=== PATIENT | male | born 1990 | race African-American/Black ===

== ENCOUNTER 2019-03-20 19:49 | Inpatient (IN) | payer BC, SELFPAY ==
[~2019-03-20 19:49] MED LIST: ISOVUE-370 76%-LOCM 1 ML ONE
[2019-03-20 21:02] LABS: ALT (SGPT) 3244 U/L (8-55); Alkaline Phosphatase 125 U/L (40-150); Anion Gap 13 mmol/L (10-20); BUN (Urea Nitrogen) 40 mg/dL (8.9-20.6); Bilirubin, Total 5.9 mg/dL (0.2-1.2); Calc. Creatinine Clearance 0 mL/min (70-130); Calcium 8.2 mg/dL (7.8-10.44); Carbon Dioxide 25 mmol/L (22-29); Chloride 91 mmol/L (98-107); Estimated GFR-MDRD 37; Globulin 2.7 g/dL (2.4-3.5); Glucose 77 mg/dL (70-105); Lipase 104 U/L (8-78); Potassium 5.1 mmol/L (3.5-5.1); Protein, Total 5.7 g/dL (6.0-8.3); Sodium 124 mmol/L (136-145)
[2019-03-20 21:14] LABS: Hemoglobin 14.6 g/dL (14.0-18.0); Mean Corpuscular HGB CONC 31.3 g/dL (32.0-36.0); Mean Corpuscular Hemoglobin 28.4 pg (27.0-31.0); Mean Corpuscular Volume 90.8 fL (78.0-98.0); Platelet Count 193 thou/uL (130-400); RBC Distribution Width 13.7 % (11.5-14.5); Red Blood Cell (RBC) Count 5.15 mill/uL (4.70-6.10); White Blood Cell (WBC) Count 20.1 thou/uL (4.8-10.8)
[2019-03-20 21:21] LABS: AST (SGOT) Greater than 3500 U/L (5-34)
[2019-03-20 21:24] LABS: Band 7 % (5-11); Lymphocytes 6 % (21-51); MDiff Complete? YES; Monocytes 2 % (0-10); Neutrophil 85 % (42-75); Platelet Morphology Comment Appears Adequate
[2019-03-20 21:25] LABS: CKMB 5.3 ng/mL (0-6.6)
[2019-03-20 21:33] LABS: Acetaminophen Less than 6.0 mcg/mL (10.0-30.0); Alcohol Less than 10 mg/dL (Less than 10); Salicylate Less than 8.0 mg/dL (15.0-30.0)
--- NOTE | 2019-03-20 22:08 | CT ---
CONTRAST ENHANCED CT IMAGES ABDOMEN AND PELVIS: 03/20/19 HISTORY: Generalized weakness. Abdominal pain, edema. Contrast enhanced CT images of the abdomen and pelvis is performed after administration of IV contra st. Bibasilar areas of lung pneumonia seen. The liver and spleen are unremarkable. There is diffuse edema in the subcutaneous fat and intraperit justice fat. The kidneys demonstrate normal enhancement. Abdominal aorta and inferior vena cava are unremarkable. No evidence of ascites seen. No evidence of bowel obstruction seen. IMPRESSION: 1. Diffuse edema throughout the subcutaneous and intraperitoneal fat. 2. Air space opacities compatible with multilobar lung pneumonia. POS: [facility]
--- NOTE | 2019-03-20 22:11 | CT ---
CTA CHEST 03/20/19 HISTORY: Weakness. Hemoptysis. Contrast enhanced CTA chest performed. 2D and 3D reconstructed images performed on an independent 3D workstation. Areas of air space opacities seen in the right middle lobe as well as the right and left lung bases a nd small area in the posterior aspect of the right upper lobe. A small right sided pleural effusion i s seen. There are bilateral areas of upper lobe filling defects seen in the upper lobe pulmonary arteries. Th jyothi may represent small areas of pulmonary emboli. Small filling defect also seen in the left lower l obe pulmonary arteries. Cardiomegaly is noted. IMPRESSION: 1. Multilobar areas of air space opacities compatible with pneumonia. 2. Multiple small areas of filling defects seen in the pulmonary arteries compatible with pulmon benji emboli. POS: [facility]
[2019-03-20] MEDS ORDERED: Piperacillin/Tazobactam 3.375 GM VIAL ONE (22:21)
[2019-03-20 22:25] LABS: PTT 37.2 SEC (22.9-36.1); Prothrombin Time 41.1 SEC (12.0-14.7)
--- NOTE | 2019-03-20 22:25 | PDOC.FPRHP ---
- History of Present Illness Chief Complaint: found down History of Present Illness: 29yo previously healthy male presents from EMS after being found in his truck by his mother. Pt was unable to provide hx of how he got there or how long. He did report 2 week hx of worsening LE swelling, intermittent vomiting, and cough. He also complains of pain all over his body and fevers/chills. Mother reports the last time she saw him was 4 days ago. Pt denies IV drug use, denies sick contacts, reports 5 sexual partners over the last year and uses condoms consistently. Reports he has no clue what could be causing his symptoms. ED Course: vanc, zosyn, levaquin - Allergies/Adverse Reactions Allergies Allergy/AdvReac Type Severity Reaction Status Date / Time No Known Drug Allergies Allergy Verified 11/18/13 05:43 - Home Medications Medication Instructions Recorded Confirmed Type No Known 11/18/13 03/20/19 History - History PMHx: none PSHx: right Rotator cuff surgery FHx: Mom- HTN, DM Dad- HTN Social: no smoking, hx of alcohol abuse (up to 30 beers a day or 7 drinks a day for at least 2 years- quit 2 years ago), pain pill abuse of norco, no IV drug use or recreational drug use. 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 Lives with his mom "when it is convenient" about 2-3 days a week and otherwise stays with other various friends throughout the week. - Review of Systems General: reports: fever/chills, fatigue Eyes: denies: eye pain, vision changes ENT: denies: nasal congestion Respiratory: denies: congestion, shortness of breath Cardiovascular: reports: chest pain. denies: palpitation Gastrointestinal: reports: nausea, vomiting, abdominal pain Genitourinary: denies: incontinence, dysuria Skin: denies: rashes, lesions Musculoskeletal: reports: pain. denies: tenderness Neurological: reports: syncope. denies: numbness, seizure Psychological: denies: anxiety, depression - Vital signs BP: 118/72, Pulse: 122, Temp: 99.3 (Oral), O2 sat: 97 on Room Air, Time: 2018 19:54. weight: 90kg - Physical Exam Constitutional: awake, alert and oriented, well developed HEENT: EOMI, grossly normal vision, grossly normal hearing, other (jaundiced sclera) Neck: supple, trachea midline Chest: no-tender to palpation, no lesions Heart: normal S1/S2, other (tachycardic) Lungs: CTAB, no respiratory distress Abdomen: soft, other (moderate+ ttp in all four quadrants) Musculoskeletal: normal structure, normal tone Neurological: no focal deficit, normal sensation Skin: no rash/lesions, good turgor Heme/Lymphatic: no unusual bruising or bleeding, no purpura Psychiatric: other (poor memory, alert, oriented to person and place) FMR H&P: Results - Labs Result Diagrams: 03/21/19 03:30 03/21/19 03:30 Lab results: WBC 20.1 thou/uL (4.8-10.8) H 03/20/19 20:39 Hgb 14.6 g/dL (14.0-18.0) 03/20/19 20:39 Hct 46.7 % (42.0-52.0) 03/20/19 20:39 MCV 90.8 fL (78.0-98.0) 03/20/19 20:39 Plt Count 193 thou/uL (130-400) 03/20/19 20:39 Band Neuts % (Manual) 7 % (5-11) 03/20/19 20:39 Sodium 124 mmol/L (136-145) L 03/20/19 20:39 Potassium 5.1 mmol/L (3.5-5.1) 03/20/19 20:39 Chloride 91 mmol/L (98-107) L 03/20/19 20:39 Carbon Dioxide 25 mmol/L (22-29) 03/20/19 20:39 BUN 40 mg/dL (8.9-20.6) H 03/20/19 20:39 Creatinine 2.52 mg/dL (0.7-1.3) H 03/20/19 20:39 Glucose 77 mg/dL (70-105) 03/20/19 20:39 Calcium 8.2 mg/dL (7.8-10.44) 03/20/19 20:39 Total Bilirubin 5.9 mg/dL (0.2-1.2) H 03/20/19 20:39 AST Greater than 3500 U/L (5-34) H 03/20/19 20:39 ALT 3244 U/L (8-55) H 03/20/19 20:39 Alkaline Phosphatase 125 U/L (40-150) 03/20/19 20:39 Creatine Kinase 581 U/L (30-200) H 03/20/19 20:39 CK-MB (CK-2) 5.3 ng/mL (0-6.6) 03/20/19 20:37 B-Natriuretic Peptide 4060.8 pg/mL (0-100) H 03/20/19 20:37 Serum Total Protein 5.7 g/dL (6.0-8.3) L 03/20/19 20:39 Albumin 3.0 g/dL (3.5-5.0) L 03/20/19 20:39 Lipase 104 U/L (8-78) H 03/20/19 20:39 FMR H&P: A/P - Problem List (1) Sepsis Current Visit: Yes Status: Acute Code(s): A41.9 - SEPSIS, UNSPECIFIED ORGANISM (2) Pneumonia Current Visit: Yes Status: Acute Code(s): J18.9 - PNEUMONIA, UNSPECIFIED ORGANISM (3) DIC (disseminated intravascular coagulation) Current Visit: Yes Status: Acute Code(s): D65 - DISSEMINATED INTRAVASCULAR COAGULATION (4) Acute renal injury Current Visit: Yes Status: Acute Code(s): N17.9 - ACUTE KIDNEY FAILURE, UNSPECIFIED (5) Acute liver failure Current Visit: Yes Status: Acute - Plan Sepsis 2/2 CAP A- CT chest shows evidence of pneumonia and pt meeting sirs criteria, pt was maintaining adequate BP in ED before fluids. s/p vanc zosyn and levaquin P- continue vanc and zosyn -LR bolus 500ml, then maintenance -repeat LA -BCx, UCx possible DIC A- possibly 2/2 sepsis, labwork so far seems to indicate DIC with elevated Pt and PTT with decreased fibrinogen and increased degredation products. P- will repeat coag panel at 0600 Bilateral PE A- shown on chest CT, possibly 2/2 DIC, pt is stable with good sats on room air though he is tachypneic and tachycardic. INR is currently 4.3 P- anticoagulation contraindicated considering INR Elevated BNP A- likely CHF in exacerbation vs. 2/2 PE P- will need to treat sepsis first with fluid rescuscitation -will monitor fluid status Acute Liver failure likely 2/2 ischemic hepatitis A- likely 2/2 poor perfusion from cardiogenic causes P- consult GI -hepatitis studies Acute kidney injury A- likely also 2/2 poor perfusion P- treat sepsis and fluid resuscitation. FULL CODE FMR H&P: Upper Level - Pertinent history 29 yr old male with no PMH presents for generalized weakness, SOB, and abdominal pain. Patient reports progressively worsening SOB, cough, and BLE swelling over the last 2-3 weeks that acutely worsened in the last week. He has been basically immobile for the last 4 days due to being so weak. His phone has been off the last 4 days and therefore his mom went searching for him today and apparently found him in his truck today. Right side of his body is in a lot of pain, mostly in his chest. Feels so short of breath it hurts to talk. Fevers, chills, coughing. +nausea and vomiting. Vomits up water when he drinks it. Threw up blood a couple days ago. Passed out within the past couple days- hit his head, does not think he lost consciousness. Sexually active- probably 5 female partners in last year. No recent travel. Unsure when the last time he urinated. - Pertinent findings Gen: lying in bed, can only talk in 4-5 word sentences Eyes: scleral icterus, 3 mm pupils-minimally reactive Heart: reg rhythm, tachycardia Lungs: CTAB, no wheezes, rhales, rhonchi Abd: exquisitely tender diffusely however worse in RUQ Ext: 1-2 + pitting edema from feet to knees - Plan Date/Time: 03/20/192211 I, [Carolyn Campo], have evaluated this patient and agree with findings/plan as outlined by customer experience intern resident. Pertinent changes/additions are listed here. Acute liver failure most likely 2/2 ischemic hepatitis -perhaps 2/2 severe sepsis vs cardiogenic shock? -stat abdominal US including doppler of hepatic/portal vein -check LDH, direct bili -possible DIC 2/2 sepsis?, will trend DIC panel q 6 hours Acute kidney failure -urine sodium/creatinine -UA with culture -urine strep pneumo and legionella -bladder scan -give 500 ml bolus since he is oliguric currently -consult nephrology in AM Hypotonic hypervolemic Hyponatremia -likely 2/2 liver failure vs heart failure vs kidney failure or culmination of all -monitor CMP daily sepsis 2/2 Community aquired PNA -tachycardia, elevated WBC -cont on vanc and zosyn and s/p levaquin x 1 in ER -500 ml bolus given and will cont IV fluids bilateral small PE's -INR currently > 4 -anticoagulation contraindicated -check BLE venous dopplers -? DIC elevated BNP -likely CHF in exacerbation - urgent ECHO Overall this is a very complicated picture at the moment. Multiple studies pending and other than sepsis, no clear etiology Dispo: likely 5-7 midnights Code: Full Code status: Full
[2019-03-20 22:26] LABS: INR-International Normal Ratio 4.3
[2019-03-20 22:52] LABS: Platelet Count 203 thou/uL (130-400)
[2019-03-20 22:57] LABS: Fibrinogen 252 mg/dL (253-463)
[2019-03-20 22:58] LABS: PTT 37.1 SEC (22.9-36.1); Prothrombin Time 40.9 SEC (12.0-14.7)
[2019-03-20 23:15] LABS: D-Dimer Test Greater than 20.00 *mcg/mL (0.27-0.43); INR-International Normal Ratio 4.3
[2019-03-20 23:16] LABS: FSP-Qualitative ABNORMAL (Normal); FSP-Semiquantitative >320 mcg/mL (Less than 5)
[2019-03-20 23:28] LABS: Troponin I 0.265 ng/mL (< 0.028)
[2019-03-20] MEDS ORDERED: Ondansetron PF 4 MG/2 ML Vial IVP PRN (23:37)
[2019-03-20] MEDS ORDERED: Ondansetron ODT 4 MG TAB SL PRN (23:37)
[2019-03-20 23:43] LABS: HBSAg Index 0.35 S/CO (0-0.99); Hep A IgM AB Non-Reactive (NonReactive); Hep A IgM S/CO 0.12 S/CO (0-0.79); Hep B Surf Ag Non-Reactive S/CO (NonReactive); Hep C IgG Ab Non-Reactive (NonReactive); Hep C Index 0.07 S/CO (0-0.79)
[2019-03-20 23:46] LABS: HIV (1/2) Antibody/Antigen Non-Reactive (NonReactive); HIV 1/2 INDEX 0.17 S/CO (<1.00); Hepatitis B Core IgM Abs Non-Reactive (NonReactive)
[2019-03-21 00:10] LABS: Magnesium 2.2 mg/dL (1.6-2.6); Phosphorus 3.5 mg/dL (2.3-4.7)
[2019-03-21] MEDS ORDERED: Sodium Chloride 0.9% 500 ML IV SCH (00:30)
[2019-03-21] MEDS: Sodium Chloride 0.9% 1,000 ML IV SCH ×2 (01:08→10:45)
--- NOTE | 2019-03-21 01:08 | PDOC.EVN ---
Event Note - Event Note Event Note: Date/Time: 03/21/19 0103 I personally evaluated the patient and discussed the management with Dr. Sands I agree with the History, Examination, Assessment and Plan documented above with any addition or exceptions noted below- 29 yr old male with no PMH presents for generalized weakness, SOB, and abdominal pain. Patient reports cough for last 2 weeks that acutely worsened in the last week. He has been basically immobile for the last 4 days due to being so weak. His phone has been off the last 4 days and therefore his mom went searching for him today and apparently found him in his truck today. Uncertain for how long he had been in the truck. Also has had SOB, subj fever/chills and N/V. Has noted decreased urination since the symptoms worsened and is uncertain when he last urinated. Denies any change in bowels. Abdominal pain is all over not isolated to any specific location. PMH/PSH/Meds/All/SH reviewed and agree with resident's documentation. T97.7 P113 BP109/76 RR30 98%RA. Exam repeated by me and agree with resident's findings. Labs: TL=368, K=5.1, Cl=91, CO2=25, BUN/Cr=40/ 2.52, Gluc=77, t bili=5.9, AST>3500, CNM=1321, Alk xsmg=225, alb=3.0, TSH+0.9839 , SIP=4228, dbili=2.8, OLH=3201, WBC=20.1, H/H=14.6/46.7, Gtj=525, PT=40.9, INR= 4.3, PTT=37.1, oaltkploit=533. FDP>320. CTA chest- multilobar areas of air space opacities c/w pneumonia and multiple small areas of filling defects seen in pulm art c/w PE. A/P: 1) Sepsis secondary to pneumonia - Admit to IMCU; Received levaquin, vanc, and zosyn. Blood and urine cultures obtained but after abx. Continue vanc and zosyn. Urine legionella and strep penumonia Ag ordered. HIV/RPR ordered. 2) Acute liver injury- hepatitis panel negative; suspect most likely secondary to sepsis. GI consulted and recommended supportive care and check vitamin K level. 3) Pulmonary embolus - unable to give anticoagulation due to abnormal coags; consult pulmonary; may need Thiells filter. Will check dopplers of lower extremities. 4) FILEMON- will give small bolus and continue maintenance fluids. 5) Elevated BNP - possibly secondary to sepsis/liver injury/ kidney injury- will check echo in AM to evaluate cardiac function.
[2019-03-21 01:15] LABS: Creatinine, Urine 137.05 mg/dL (63-166); Sodium, Urine Less than 20 mmol/L (Not Available)
[2019-03-21 01:18] LABS: Strep pneumo Urine Ag NEGATIVE (NEGATIVE)
[2019-03-21 01:24] LABS: Lactic Acid 3.1 mmol/L (0.5-2.2)
[2019-03-21] MEDS ORDERED: Vancomycin HCl 1.25 GM in Sodium Chloride 0.9% 250 ML 250 ML IVPB SCH (03:00)
[2019-03-21] MEDS: Piperacillin/Tazobactam 3.375 GM in Sodium Chloride 0.9% 100 ML IVPB SCH ×2 (03:22→09:52)
[2019-03-21 04:17] LABS: Platelet Count 166 thou/uL (130-400)
[2019-03-21 04:18] LABS: ALT (SGPT) 2697 U/L (8-55); Albumin 2.9 g/dL (3.5-5.0); Alkaline Phosphatase 123 U/L (40-150); Anion Gap 16 mmol/L (10-20); BUN (Urea Nitrogen) 41 mg/dL (8.9-20.6); Bilirubin, Total 6.3 mg/dL (0.2-1.2); Calc. Creatinine Clearance 73 mL/min (70-130); Calcium 8.2 mg/dL (7.8-10.44); Carbon Dioxide 22 mmol/L (22-29); Chloride 93 mmol/L (98-107); Estimated GFR-MDRD 42; Globulin 2.5 g/dL (2.4-3.5); Glucose 77 mg/dL (70-105); Potassium 4.8 mmol/L (3.5-5.1); Protein, Total 5.4 g/dL (6.0-8.3); Sodium 126 mmol/L (136-145)
[2019-03-21 04:21] LABS: Troponin I 0.267 ng/mL (< 0.028)
[2019-03-21 04:33] LABS: Hemoglobin 13.8 g/dL (14.0-18.0); Lymphocytes 9 % (21-51); MDiff Complete? YES; Mean Corpuscular HGB CONC 31.9 g/dL (32.0-36.0); Mean Corpuscular Hemoglobin 28.8 pg (27.0-31.0); Mean Corpuscular Volume 90.3 fL (78.0-98.0); Mean Platelet Volume 9.5 fL (7.4-10.4); Monocytes 5 % (0-10); Neutrophil 86 % (42-75); Nucleated RBC 4 % (0); Platelet Count 166 thou/uL (130-400); Platelet Morphology Comment Appears Adequate; RBC Distribution Width 13.6 % (11.5-14.5); White Blood Cell (WBC) Count 15.3 thou/uL (4.8-10.8)
[2019-03-21 04:35] LABS: AST (SGOT) Greater than 3500 U/L (5-34)
[2019-03-21 04:44] LABS: Fibrinogen 237 mg/dL (253-463)
[2019-03-21 04:45] LABS: Prothrombin Time 39.8 SEC (12.0-14.7)
[2019-03-21 05:17] LABS: D-Dimer Test Greater than 20.00 *mcg/mL (0.27-0.43); INR-International Normal Ratio 4.1
[2019-03-21 05:19] LABS: FSP-Qualitative ABNORMAL (Normal); FSP-Semiquantitative >=160 & <320 mcg/mL (Less than 5)
--- NOTE | 2019-03-21 07:35 | RAD ---
CHEST 1 VIEW: INDICATION: History of pneumonia. COMPARISON: CTA exam dated February 17, 2019. FINDINGS: Bilateral parenchymal opacities persist. Cardiomegaly is similar-appearing. No pneumothorax is evid ent. No acute osseous abnormality is noted. IMPRESSION: 1. Persistent bilateral multifocal opacities suspicious for either pneumonia or areas of hemorrhage. Recommend continued followup. 2. Persistent cardiomegaly. 3. No pneumothorax. POS: [facility]
--- NOTE | 2019-03-21 08:20 | ULT ---
PRELIMINARY REPORT/[facility]/EMERGENCY AFTER HOURS PROCEDURE: EXAM: US Abdomen Complete EXAM DATE/TIME: 03/20/2019 11:59 PM CLINICAL HISTORY: 29 years old, male; Other: Ruq pain, liver failure, t-bili 5.9, rosemary TECHNIQUE: Imaging protocol: Real-time ultrasound of the abdomen with image documentation. COMPARISON: No relevant prior studies available. FINDINGS: Liver: No liver masses. Gallbladder: The gallbladder is filled with sludge. The gallbladder wall is within normal limits at 3 -4 mm. The sonographic Larosn sign was reported as negative. Common bile duct: The common bile duct measures 0.4 cm. Pancreas: The visualized portions of the pancreas are normal. Right kidney: Normal appearance of the right kidney with normal cortical echogenicity and without hyd ronephrosis or mass. The right kidney measures 12 x 4.8 x 6 cm. Left kidney: Normal appearance of the left kidney with normal cortical echogenicity and without hydronephrosis or mass. The left kidney measures 11.6 x 5.8 x 4.6 cm. Spleen: Normal appearance of the spleen measuring 10.3 x 3.6 x 3.4 cm. Aorta: Visualized portions of the proximal aorta is within normal size limits. Inferior vena cava: Normal appearance of the partially visualized inferior vena cava. Portal venous: The main portal vein is patent with normal hepatopedal flow. Intraperitoneal space: Trace perihepatic fluid. IMPRESSION: 1. Gallbladder sludge without sonographic findings of acute cholecystitis. 2. Trace perihepatic fluid. Thank you for allowing us to participate in the care of your patient. Dictated and Authenticated by: Kamilah Harris MD 03/21/2019 3:20 AM Central Time ([place] & [place]) FINAL REPORT EMERGENCY AFTER HOURS ABDOMINAL ULTRASOUND: Date: 03/20/19 FINDINGS/IMPRESSION: I agree with the preliminary report provided by [facility]. Please see report for full details. POS: [facility]
--- NOTE | 2019-03-21 09:23 | ULT ---
BILATERAL LOWER EXTREMITY VENOUS DOPPLER ULTRASOUND: HISTORY: Pulmonary embolism and bilateral lower extremity edema. TECHNIQUE: Cruz scale ultrasound with color flow and spectral Doppler imaging of the deep venous systems of the lower extremity is performed bilaterally. FINDINGS: There is good flow, compression, and augmentation noted in the common femoral, femoral, deep femoral, popliteal, posterior tibial, and greater saphenous veins in either lower extremity. IMPRESSION: No evidence of deep vein thrombosis in either lower extremity. POS: [facility]
[2019-03-21] MEDS ORDERED: Furosemide 40 MG/4 ML VIAL SLOW IVP SCH (10:45)
--- NOTE | 2019-03-21 11:05 | PDOC.FM ---
- Subjective Subjective: Patient stable. No significant overnight events. Patient able to elicit a little more history this morning. He states that he was staying at his step mothers because he has multiple pets over there. His father recently and the situation is complicated. He ended up in his car at some point which is where he was reportedly found by his mother. Patient reports that he started to feel generally weak and short of breath with exertion over a month ago. 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 He denies drug use or exposure to sick animals. He denies any use of substances. Patient states that he has otherwise been a healthy male and has not been on any medications. He still feels very weak. - Objective MAR Reviewed: Yes Vital Signs & Weight: Vital Signs (12 hours) Temp Resp Pulse Ox 03/21/19 08:00 100 03/21/19 07:00 98.7 F 03/21/19 04:00 32 H 03/21/19 03:50 97.6 F 100 03/20/19 23:22 97.7 F 98 Weight Weight 108.097 kg Most Recent Monitor Data Heart Rate from ECG 112 NIBP 106/73 NIBP BP-Mean 84 Respiration from ECG 29 I&O: 03/20/19 03/21/19 03/22/19 06:59 06:59 06:59 Intake Total 1244 Output Total 800 Balance 444 Result Diagrams: 03/21/19 03:30 03/21/19 03:30 EKG Reviewed by me: Yes Radiology Reviewed by me: Yes Phys Exam - Physical Examination Appears weak and tired Dry lips Bibasilar crackles R>L Cardiovascular: no significant murmur Tachycardic Gastrointestinal: soft Mildly tender to palpation throughout Musculoskeletal: edema present 2+ bilateral lower extremity edema Neurological: non-focal, moves all 4 limbs Psychiatric: A&O x 3 Skin: cap refill <2 seconds Deviation from normal: stria on abdomen Dx/Plan (1) Acute heart failure Code(s): I50.9 - HEART FAILURE, UNSPECIFIED Status: Acute (2) Hyperbilirubinemia Code(s): E80.6 - OTHER DISORDERS OF BILIRUBIN METABOLISM Status: Acute (3) Increased ammonia level Code(s): R79.89 - OTHER SPECIFIED ABNORMAL FINDINGS OF BLOOD CHEMISTRY Status : Acute (4) Demand ischemia Code(s): I24.8 - OTHER FORMS OF ACUTE ISCHEMIC HEART DISEASE Status: Acute (5) Lactic acidosis Code(s): E87.2 - ACIDOSIS Status: Acute (6) Acute liver failure Status: Acute (7) Acute renal injury Code(s): N17.9 - ACUTE KIDNEY FAILURE, UNSPECIFIED Status: Acute (8) Pneumonia Code(s): J18.9 - PNEUMONIA, UNSPECIFIED ORGANISM Status: Acute (9) Pulmonary emboli Code(s): I26.99 - OTHER PULMONARY EMBOLISM WITHOUT ACUTE COR PULMONALE Status : Acute - Plan Plan: 29 year old male with no significant PMH presents with a one month history of progressive weakness, shortness of breath, and lower extremity swelling 1. New onset CHF - Etiology unknown, possibly related to bilateral pulmonary emboli - BNP >4000 - Stat echo pending - Cards consulted; appreciate recs - Pulm consulted; appreciate recs - Lasix IV - Strict I&O's - Daily weights - Urine drug screen pending 2. Bilateral pulmonary emboli - Multiple PE's throughout as noted on CTA chest; CXR mentions possible hemorrhage - No saddle emboli noted - D/t elevated INR, will hold off on anticoagulation at this time - Bilateral lower extremity dopplers pending - Will get anticoagulation studies to further evaluate 3. Acute liver failure - AST 3500, ALT 2697 - Abdominal ultrasound shows gallbladder sludge without sonographic findings of cholecystitis and trace perihepatic fluid - Stat hepatic doppler pending to evaluate for portal vein thrombosis - Continue to trend liver enzymes - Possibly related to hepatic congestion from heart failure - Studies pending for further evaluation to include CMV, EBV - Acute hepatitis panels pending 4. Hyperbilirubinemia - Likely 2/2 hepatic congestion from above - Continue to trend 5. Acute kidney injury - May be on opposite side of Starling curve, and kidney function may improve with lasix - Continue to monitor; gentle fluids 6. Demand ischemia - Troponin elevated, but stable - Likely 2/2 demand from hypoperfusion 2/2 CHF exacerbation and third spacing 7. Lactic acidosis - Trend down - Gentle fluids - Likely 2/2 hypoperfusion from third spacing and may improve with diuresis 8. Hemoptysis - TB pending - Possibly related to hemorrhage from PE's 9. Hyponatremia - Na 126 - Continue to trend - Likely 2/2 fluid overload 10. Leukocytosis - Initial concern for severe sepsis based on tachycardia and elevated WBC - Patient started on vanc, zosyn, levoquin in Ed - Blood cx obtained after initiation of abx - UA never got drawn - Will order procalcitonin - Antibiotics d/c'd by pulm as picture more consistent with HF - Leukocytosis may be leukamoid reaction - Continue to monitor Dispo: Diuresis. Cards and pulm recs. Anticipate LOS >48 hours. Addendum - Attending - Attending Attestation Date/Time: 03/21/19 2643 I personally evaluated the patient and discussed the management with Dr. Tsai I agree with the History, Examination, Assessment and Plan documented above with any addition or exceptions noted below. 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 Patient with recent productive cough with hemoptysis he denies any recent fever, chills,arthalgia, myalgia or skin rashes. Patient on exam alert responsive relate he works as [employer] 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 Afebrile HEENT wnl heart NSR lung mild right sided rales abdomen with ascites and striae noted and Lower extremities with 3 plus pitting edema. Lab with acute liver injury consumptive coagulopathy and leucocytosis. Patient adamantly denies alcohol abuse tylenol level negative viral hepatides ordered. CT with questionable PE verse hemorrhagic. Appreciate rec from Critical care, GI and Cardiology. Echocardiogram done report pending r/o cardiomyopathy liver US r/o venous/portal thrombosis.
[2019-03-21 11:45] LABS: Medtox Reader # READER 1; Methamphetamine Detected (NotDetected)
[2019-03-21 11:46] LABS: Amphetamine Not Detected (NotDetected); Barbiturates Screen Not Detected (NotDetected); Benzodiazepine Screen Not Detected (NotDetected); Cocaine Metabolite Screen Not Detected (NotDetected); Medtox Control Line Valid? VALID (VALID); Methadone Not Detected (NotDetected); Opiate Screen Not Detected (NotDetected); Oxycodone Screen Not Detected (NotDetected); Phencyclidine (PCP) Not Detected (NotDetected); THC/Cannabinoid Screen Not Detected (NotDetected); Tricyclic Screen Not Detected (NotDetected)
--- NOTE | 2019-03-21 13:15 | ULT ---
EXAM: US Hepatic Doppler PROVIDED CLINICAL HISTORY: Acute liver injury. COMPARISON: Abdominal ultrasound 03/20/2019. FINDINGS: Hepatic Doppler evaluation with spectral analysis and color flow evaluation demonstrates normal direc tional flow within the hepatic, portal, and splenic veins. Arterial waveforms are seen within the hepatic and splenic arteries. The portal confluence is not well seen or assessed on this exam. Visualized portions of the IVC demonstrate a normal sonographic appearance. The upper abdominal organ s were evaluated on recent abdominal ultrasound. IMPRESSION: Normal directional flow is seen within the portal, hepatic, and splenic veins.
[2019-03-21 13:42] LABS: Lactic Acid 1.8 mmol/L (0.5-2.2)
[2019-03-21 13:44] LABS: INR-International Normal Ratio 3.9; PTT 38.9 SEC (22.9-36.1); Prothrombin Time 38.2 SEC (12.0-14.7)
[2019-03-21 14:28] LABS: PT - Undiluted 38.2 SEC (12.0-14.7); PTT - Undiluted 38.9 SEC (22.9-36.1)
[2019-03-21 14:29] LABS: PTT 1:1 Mix 29.7 SEC
[2019-03-21 14:33] LABS: D-Dimer Test Greater than 20.00 *mcg/mL (0.27-0.43)
--- NOTE | 2019-03-21 14:58 | CON ---
DATE OF CONSULTATION: 03/21/2019 SERVICE: Pulmonary Medicine. REASON FOR CONSULTATION: ICU patient. HISTORY OF PRESENT ILLNESS: The patient is a 29-year-old male with past medical history significant for absolutely nothing. He presents to the hospital with a 2 to 3 week history of general malaise, not feeling very well, abdominal discomfort, lower extremity swelling, weight gain, and dyspnea on exertion. For the last week and a half, he has had a difficult time lying down flat. He wake up choking and gasping in the middle of the night. He will sit up on the side of the bed and after 10-15 minutes, his respirations settle down. He denies any current fevers, chills, nausea, or vomiting. He had any night sweats. He does not have an appetite for any food. He ultimately presented to the emergency department because of a little bit of hemoptysis. He was discovered to have a very small pulmonary embolism. He was also found to have acute liver injury with an elevated BNP. Overnight, he got a 0.5 L of fluid, was put on some IV antibiotics. Otherwise, there was no interval change to his condition. He feels that his breathing has been more labored overnight. PAST MEDICAL HISTORY: None. PAST SURGICAL HISTORY: Rotator cuff surgery. SOCIAL HISTORY: Negative for alcohol, tobacco, or illicit drug use to any excess. He has no exposure to chemicals, dust, asbestos, or tuberculosis. FAMILY HISTORY: Noncontributory. ALLERGIES: NO KNOWN DRUG ALLERGIES. MEDICATIONS: List of his inpatient medication was reviewed. Multiple updates/changes were made. REVIEW OF SYSTEMS: General, head, ears, eyes, nose, throat, cardiovascular, respiratory, GI, , musculoskeletal, neurologic, and skin are negative except as mentioned in the HPI. PHYSICAL EXAMINATION: VITAL SIGNS: Afebrile. Pulse 112, blood pressure 106/73, respirations 29, saturation 100% on room air. GENERAL: The patient is awake and alert, in no apparent distress. LUNGS: Excellent air entry. No prolonged expiratory phase is present. Extensive crackles are noted. HEART: Tachycardic. Regular. ABDOMEN: Soft. It is tender to palpation throughout without any rebound or guarding. Bowel sounds are hypoactive. : No Gifford catheter. Neurologic: Grossly nonfocal. MUSCULOSKELETAL: No cyanosis or clubbing. There is 2 to 3+ pitting in the bilateral lower extremities. LABORATORY DATA: Sodium 126 and improving. Creatinine 2.27 and gently downtrending. AST and ALT are extremely elevated. Direct bilirubin 2.8 with a total bilirubin of 6.3, also up trending. Troponins 0.267 and up trending. LDH is elevated, ammonia elevated. BNP 4000, TSH 0.9. Toxicology is unremarkable. Hepatitis serologies and HIV are negative. INR 4.0. WBC downtrending, hemoglobin 13.8, platelets 166,000 and stable. IMAGING: Ultrasound of bilateral lower extremities demonstrates no evidence of DVT. Chest x-ray demonstrates cardiomegaly despite the fact this is an AP film. Pulmonary vascular congestion is noted. There is a right-sided infiltrate present. CTA of the chest demonstrates a very tiny pulmonary embolism. What is more striking is that he has interstitial fullness and scattered opacifications throughout bilateral lungs which are quite small, but there is massive dilation of the heart with distended right ventricle, right atrium, well filled left atrium and enlarged left ventricle, all consistent with a fairly extensive volume overload. CT of the abdomen and pelvis demonstrates diffuse edema throughout the subcutaneous structures. Outside of that, there is no significant process. ASSESSMENT: 1. Acute systolic heart failure, suspected. 2. Acute liver injury, likely secondary to passive congestion. 3. Mild coagulopathy. 4. Acute pulmonary embolism, quite small and certainly not causing these findings. 5. Acute kidney injury. DISCUSSION AND PLAN: Antibiotics will be consolidated. We will put him on appropriate community acquired coverage, which will be p.o. Levaquin to minimize fluid. IV fluids will be interrupted. I will give the patient multiple doses of Lasix over the next 24 to 48 hours. Once he is offloaded, more extensive evaluation of the heart will be indicated. It is not clear to me if the heart issue cause a liver problem or vice versa, but I favor the heart problem causing the liver issue given his presentation and lack of chronic liver issues. Pulmonary Critical Care will continue to follow along while the patient remains in the IMCU. 70 minutes have been devoted to this patient in various activities. I personally reviewed all imaging studies and laboratory data noted within this document. For fifty percent of this time, I was interacting with the patient at the bedside or coordinating care with the care team. For the remainder of the time I was immediately available to the patient in the hospital unit. Job ID: [id number] [facility]
[2019-03-21 16:07] LABS: PT 1:1 37C-90 min. Incubation 16.5 SEC
[2019-03-21 16:08] LABS: PTT 1:1 37C/90 MIN Incubation 35.5 SEC
[2019-03-21] MEDS ORDERED: Ondansetron PF 4 MG/2 ML Vial IVP PRN (17:48)
--- NOTE | 2019-03-21 17:57 | CON ---
DATE OF CONSULTATION: 03/21/2019 CONSULTING PHYSICIAN: Dr. Salvador Sands. INDICATION FOR CONSULTATION: Significantly elevated LFTs. HISTORY OF PRESENT ILLNESS: The patient is a 29-year-old male with no significant past medical history, who is presenting with generalized whole body pain, fevers, chills, and multiorgan dysfunction based on labs. The patient is a relatively poor historian and was not able to provide a significant amount of information, but per interview with him as well as chart review, the patient had been having increased shortness of breath and pain "all over" for the last 3 weeks with no clear inciting incident. The generalized pain was especially present within the right upper quadrant, which he characterizes as a sharp/stabbing type pain, was constant and would reach a severity of 9/10. The pain was worse with increased physical activity and better with not moving (no other clear alleviating or exacerbating factors including relation to bowel habits). However, the patient had been working at home, and there have been some psychosocial stressors within the patient's family with the passing of his father, and per the patient, he had been staying with his stepmother, who was out of town this last week. Subsequently, the patient stayed in his car for the last four days drinking only water from the hose from the house as well as crackers that he obtained in his car (he could not move the car due to a battery). Over the last 24 to 48 hours, he does not remember much additional information, but does recall that his last bowel movement was approximately 4 days ago and that he was not taking any medications, herbal supplements, illicit drugs, or eating any additional varsha including mushrooms over the last 3 to 4 days. He does endorse increased lower extremity edema, increased abdominal distention, as well as increased confusion, which then brought him into the ER. He was subsequently found by his stepmother in this state of fugue and brought to the ER. Upon evaluation in the ER, he was noted to be hypotensive as well as labs indicating multiorgan dysfunction and elevated infectious markers concerning for sepsis. He was subsequently transferred to the ICU for further evaluation and management. Currently, he states that his whole body pain has not improved significantly. However, he denies any nausea, vomiting, shaking chills, GI bleeding, dysphagia, odynophagia, or weight loss. REVIEW OF SYSTEMS: A 10-category review of systems was obtained with all responses negative except for the pertinent positives as listed in HPI. PAST MEDICAL HISTORY: None. PAST SURGICAL HISTORY: Right rotator cuff surgery. FAMILY HISTORY: He states that his maternal grandfather might have had colon cancer in the past, but no other relatives with colon polyps or colon cancer. SOCIAL HISTORY: Denies any tobacco, alcohol, or illicit drug use, although, he does have a history of increased alcohol consumption two years ago, but quit at that time. OUTPATIENT MEDICATIONS: None. ALLERGIES: NO KNOWN DRUG ALLERGIES. PHYSICAL EXAMINATION: VITAL SIGNS: Temperature 99.6, pulse 112, blood pressure 122/87, respiratory rate 28, and saturating 98% on room air. GENERAL: The patient was lying in bed, in no acute distress. Alert and oriented x4. NECK: Supple. HEENT: No scleral icterus noted. Normocephalic and atraumatic. CARDIOVASCULAR: Tachycardic rate, but regular rhythm with no discernible murmurs, gallops, or rubs. RESPIRATORY: Clear to auscultation bilaterally with no discernible wheezes or rales, but diminished breath sounds auscultated in all lung covarrubias. ABDOMEN: Hyperactive bowel sounds. Soft, nondistended, but tenderness to palpation in all abdominal quadrants, especially the right upper quadrant. EXTREMITIES: No cyanosis or clubbing, 1+ bilateral extremity edema extending to the knees noted. LABORATORY DATA: CBC with a white blood cell count of 15.3, hemoglobin 13.8, hematocrit 43.3, and platelets 166. INR 4.1, fibrinogen 237, fibrinogen degradation products abnormal. Chemistry with a sodium of 126, potassium 4.8, chloride 93, CO2 of 22, BUN 41, creatinine 2.27, glucose 77, AST greater than 3500, ALT 2697, alkaline phosphatase 123, total bilirubin 6.3, direct bilirubin 2.8, ammonia 181, LDH 3018, CRP 8.83, lipase 104, CK 581. Acute hepatitis profile negative. Salicylate and acetaminophen levels negative. HIV negative. IMAGING DATA: CT of the abdomen and pelvis was obtained on March 20, 2019, which showed diffuse edema of the subcutaneous fat, but no evidence of ascites. However, there was evidence of a multilobar pneumonia. CT angiography obtained on March 20, 2019, showed multiple small filling defects within the pulmonary artery consistent with pulmonary emboli in addition to the multilobar pneumonia demonstrated on the prior CT. ASSESSMENT AND PLAN: The patient is a 29-year-old male with no significant past medical history, presenting with multiorgan dysfunction secondary to sepsis, pulmonary embolism, and elevated BNP consistent with fluid overload/new onset congestive heart failure, in addition to shock liver. Shock liver. The patient is presenting with a recent history of decreased oral nutritional intake and altered mental status within the last 24 to 48 hours while residing in his truck outside of his stepmother's home. He was ultimately found by his stepmother and brought to [facility] ER for further evaluation, and while in the ER, he was noted to have significantly elevated liver function tests with his AST greater than 3500 and ALT of 2697, normal alkaline phosphatase and an elevated total bilirubin of 6.3. He is also noted to have a significantly elevated LDH over 3000 in addition to elevated INR and abnormal fibrin degradation products consistent with sepsis and disseminated intravascular coagulation. However, echocardiogram was obtained earlier today, which showed an effective ejection fraction of 20% to 25%, making it unclear if this is due to hypervolemia related to resuscitative efforts, underlying cardiomyopathy, or new onset congestive heart failure in a young individual. In any case, the pattern of his LFTs is in primarily hepatocellular pattern, and given the marked elevation of both the AST and ALT, the differential could include medications/toxins, acute viral hepatitis (possible VZV, HSV, CMV, or EBV), autoimmune hepatitis, ischemia secondary to congestive hepatopathy/congestive heart failure, Damián disease, Budd-Chiari syndrome, or heat stroke. At this time, given the multiorgan dysfunction, presence of possible pneumonia, and multiple pulmonary emboli, his prognosis is guarded. RECOMMENDATIONS: 1. We would continue to trend LFTs daily to assess response to treatment. 2. Agree with antibiotic administration for treatment of probable sepsis contributing to hypotension and congestive hepatopathy. 3. We would defer to Cardiology Service related to hypervolemia and possible congestive heart failure, which could then contribute to congestive hepatopathy and the current LFT elevation. 4. We would proceed with a full liver workup for evaluation of underlying liver pathology contributing to the current clinical situation including VZV, HSV, ASMA, MARK, ceruloplasmin, and ceruloplasmin titers. 5. We would avoid any potential hepatotoxins during this hospitalization. 6. We would perform serial neurological exams daily as worsening hepatic encephalopathy could be a harbinger of liver failure. 7. We will continue to follow. Please call with any questions. Job ID: [id number]
[2019-03-21] MEDS ORDERED: Furosemide 20 MG/2 ML VIAL SLOW IVP SCH (18:00)
--- NOTE | 2019-03-21 20:23 | CON ---
DATE OF CONSULTATION: 03/21/2019 INDICATION FOR CONSULTATION: A 29-year-old patient with elevated INR and what appears to be acute congestive heart failure with pneumonia and bilateral PEs. HISTORY OF PRESENT ILLNESS: This very unfortunate 29-year-old gentleman has not been feeling well for several days now. He actually went out to his father's farm or ranch as his father had recently and he needs to take care of the animals. Unfortunately, he said that the battery in the truck . He was unable to get into the house, so he became very weak. He has been staying in the truck for the last 3 or 4 days. He has been able to sleep in the truck. Probably he did not have anything to eat, but was drinking water, and was finally found, and was brought to the emergency room. He complained of some chest discomfort for the last couple weeks also. He states he has had no energy. When he arrived here, it was noted that he had significant elevated liver enzymes and had renal insufficiency, also in the interim, undergone an echocardiogram which shows ejection fraction of 20% to 25%. He has left ventricular thrombus. He also has been found to have bilateral PEs and possible small pneumonias. Sodium is also low at 126. At this time, he says he is still very fatigued and has significant lower extremity edema. His INR is elevated at 4.3, which may be due to the liver insufficiency and he was already anticoagulated, and there is no indication that we can further anticoagulate this patient with heparin. It is unclear as to whether or not he has had any coagulopathy problems in the past, but does not give any history of having DVTs or problems in the past, and ultrasound does not show any evidence of DVTs. At this time, he is feeling better, but still is very fatigued. PAST MEDICAL HISTORY: Significant for rotator cuff repair. SOCIAL HISTORY: He is single. He has no children. He dips snuff, but does not smoke cigarettes. He has no alcohol use. 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 FAMILY HISTORY: Noncontributory. ALLERGIES: NONE. MEDICATIONS PRIOR TO ADMISSION: None. REVIEW OF SYSTEMS: His 12-point review of systems is unremarkable except for fatigue and he said he passed out a couple of days ago, but again has not been eating and has not been feeling well. He has had no previous cardiac history that we are aware of. PHYSICAL EXAMINATION: VITAL SIGNS: Blood pressure 108/77; heart rate is 111, shows a sinus rhythm; respiratory rate 33. HEENT: Shows head to be normocephalic and atraumatic. Carotid pulses are present without any bruits. CHEST: Actually, I do not hear any significant rales, rhonchi, or wheezing. CARDIOVASCULAR: Reveals regular rate and rhythm. Slightly tachycardic. He does have S3 noted. I do not hear any rubs or bruits. ABDOMEN: Soft and nontender. Positive bowel sounds are present. EXTREMITIES: Show no clubbing or cyanosis. He has 2 to 3+ lower extremity edema. NEUROLOGIC: The patient does appear lethargic and fatigued, but was able to answer most of the questions. SKIN: Warm and dry. LABORATORY AND DIAGNOSTIC DATA: His EKG shows evidence of sinus rhythm, decreased R-wave progression in V1 through V4, but R waves are present and nonspecific T- wave changes were noted in V5 and V6 as well as I and aVL. LABORATORY DATA: Sodium 126, BUN of 41, creatinine 2.24, blood sugar 77. INR 4.3. AST 3500, ALT 22,697, LDH was 3018. His ammonia level was 181. Total bilirubin was 6.3. Fibrinogen 237. PTT was 37, troponin I is 0.267. IMPRESSION: 1. By CT scan, he has bilateral pulmonary embolus and possibly bilateral pneumonias. 2. Left ventricular thrombus, there is 2 or 3 different small thrombus in the apex up to 1 cm in diameter. 3. Severe decrease in left ventricular systolic function, ejection fraction is estimated at 20% to 25%. 4. Acute liver injury with elevated liver enzymes. 5. Small pericardial effusion and there is no evidence of tamponade. 6. Probable pneumonia which is in small areas. 7. Lower extremity edema, appears to be acute congestive heart failure of uncertain etiology with severe decrease in left ventricular function, it was felt that perhaps he has had decreased perfusion due to low cardiac output, but has significant edema, he has been given diuretics and hopefully he will diurese and the function will improve. On his echocardiogram, he did have left ventricular dilatation, which was moderate to severe. He also had a small thrombus noted in the left ventricular apex. He had dilated IVC compatible with volume overload. At this time, it is the best that we can treat him aggressively with diuretics to see whether or not he improves. If the liver function worsens or if he develops acute renal failure, then he may need to be transferred or may need to start dialysis when his renal function deteriorates. From a cardiac standpoint, once he is more stable, then we will need to determine the etiology of the cardiomyopathy. Please note, also his urine was positive for amphetamines, but he denies any [id number]-sylzcka medications or any other illegal drugs. We will do aggressive management of his congestive heart failure at this time and try to determine etiology later. We will be more happy to continue to follow the patient with you. Job ID: [id number] [facility]
[2019-03-21 20:46] LABS: Bilirubin Negative (Negative); Blood, Urine Negative (Negative); Clarity CLEAR (Clear); Glucose, Urine (Dipstick) Negative (Negative); Leukocyte Negative (Negative); Nitrite Negative (Negative); Protein, Urine (Dipstick) Negative (Neg-Trace); Specific Gravity, Urine 1.008 (1.002-1.036); Urobilinogen 0.2 mg/dL (0.2-1.0)
--- NOTE | 2019-03-22 00:41 | CON ---
DATE OF CONSULTATION: REASON FOR CONSULTATION: Elevated INR. HISTORY OF PRESENT ILLNESS: Mr. Cruz is a 29-year-old male who presented to the emergency room via EMS after being found in his truck, where he had apparently been for the 4 days. He has had a 2-3 week history of lower extremity swelling, weight gain, and shortness of breath. He had a CT angio of the chest which showed a small pulmonary embolism. abdominal CT showed diffuse edema throughout the subcutaneous and intraperitoneal fat of the abdomen. His lab showed an elevated white count of 20, with 85% neutrophils and 7% bands. His PT was 41.1 and his INR was 4.3. His DIC panel showed a minimal drop in fibrinogen at 252. He had greater than 320 fibrin degradation products. His D-dimer was elevated. His bilirubin was 6.3 with an AST greater than 3500 and an ALT of 2697. His creatinine was elevated at 2.27. He had an echocardiogram performed which showed an EF of 20%. His venogram was negative for DVT. His drug screen was positive for methamphetamines. He has no past medical history. Denies any smoking, but admits to tobacco chew. No alcohol. He has been placed on empiric antibiotics. Cardiology and Critical Care Medicine have both seen the patient. PAST MEDICAL HISTORY: None. PAST SURGICAL HISTORY: Rotator cuff repair. ALLERGIES: NO KNOWN DRUG ALLERGIES. HOME MEDICATIONS: None. FAMILY HISTORY: No history of hematological abnormality. No history of blood clots or bleeding issues. SOCIAL HISTORY: Denies alcohol, tobacco, or illicit drug use. Positive for chewing tobacco. REVIEW OF SYSTEMS: Negative except for noted in HPI. PHYSICAL EXAMINATION: VITAL SIGNS: Temperature is 99.6, pulse is 112, respiratory rate 28, BP is 122/ 87. He is 98% on room air. GENERAL: Well-developed, well-nourished male, in no acute distress. HEENT: Normocephalic and atraumatic. Pupils are equal and reactive to light. NECK: Supple. CV: Regular rate. Tachycardia. LUNGS: Clear anterior. ABDOMEN: Soft and nontender. There is no organomegaly. EXTREMITIES: He has 2+ bilateral lower extremity edema. SKIN: No rash. HEMATOLOGICAL: No petechiae or purpura. NEUROLOGICAL: The patient is sleepy, but will respond. PERTINENT LABS AND X-RAYS: Current WBCs are 15.3, hemoglobin 13.8, hematocrit 43.3, platelet count is 166,000, 86% neutrophils, 9% lymphocytes. Current PT is 38.2 , INR 3.9, PTT is 38.9. Lexiscan study is normal. D-dimer is greater than 20. Sodium 126, potassium 4.8, chloride 93, CO2 is 22, BUN is 41, creatinine 2.27, lactic acid is 1.8, calcium 8.2, bilirubin is 6.3, AST is greater than 3500, ALT is 2697, alkaline phosphatase is 123, LDH is 3018. Troponin is 0.267. C-reactive protein 8.83. BNP is 40,060. Serum total protein 5.4, albumin 2.9, globulin 2.5, homocystine is 25. Hepatitis and HIV are negative. Blood culture is negative at 12 hours. ASSESSMENT: 1. Acute heart failure. 2. Acute liver injury. 3. Coagulopathy secondary to liver failure. 4. Kidney injury. DISCUSSION: The case was discussed with Dr. Montero and Dr. Corey. There is no evidence of bleeding in this patient. His coagulopathy is most likely due to liver injury. Liver failure has put the patient at risk for both clots and bleeding. His pulmonary emboli are very small and he cannot be anticoagulated secondary to liver failure. Expect his coagulation panel to improve once his liver improves. No further recommendations at this time. Thank you for the consult of this unfortunate gentleman. Job ID: [id number] [facility]
--- NOTE | 2019-03-22 05:05 | PDOC.FM ---
- Subjective Subjective: Patient states he is doing well this AM. No significant overnight events. He feels better than he did yesterday but still reports being weak. After dav discussion with patient, he did admit to drinking 12 beers a day for several years, but quit 2 years ago. He told night team that he drank 30 per day for several years. He still denies amphetamine use, despite the fact that UDS was positive. He does state that he used phentermine for several years, but he stopped using it a year ago. - Objective MAR Reviewed: Yes Vital Signs & Weight: Vital Signs (12 hours) Temp Pulse Ox 03/22/19 03:52 97.7 F 03/21/19 23:40 99.3 F 03/21/19 20:00 99.9 F H 96 Weight Weight 108.097 kg Most Recent Monitor Data Heart Rate from ECG 112 NIBP 97/66 NIBP BP-Mean 76 Respiration from ECG 20 I&O: 03/20/19 03/21/19 03/22/19 06:59 06:59 06:59 Intake Total 1244 1200 Output Total 800 1175 Balance 444 25 Result Diagrams: 03/23/19 05:04 03/23/19 05:04 EKG Reviewed by me: Yes Radiology Reviewed by me: Yes Phys Exam - Physical Examination Constitutional: NAD HEENT: moist MMs Respiratory: no wheezing, no rales, no rhonchi Cardiovascular: no significant murmur Tachycardia Gastrointestinal: soft, no distention Mildly tender left lower quadrant Musculoskeletal: pulses present Bilateral lower extremity edema Neurological: non-focal, moves all 4 limbs Skin: no rash, cap refill <2 seconds Dx/Plan (1) Acute heart failure Code(s): I50.9 - HEART FAILURE, UNSPECIFIED Status: Acute (2) Hyperbilirubinemia Code(s): E80.6 - OTHER DISORDERS OF BILIRUBIN METABOLISM Status: Acute (3) Increased ammonia level Code(s): R79.89 - OTHER SPECIFIED ABNORMAL FINDINGS OF BLOOD CHEMISTRY Status : Acute (4) Demand ischemia Code(s): I24.8 - OTHER FORMS OF ACUTE ISCHEMIC HEART DISEASE Status: Acute (5) Lactic acidosis Code(s): E87.2 - ACIDOSIS Status: Acute (6) Acute liver failure Status: Acute (7) Acute renal injury Code(s): N17.9 - ACUTE KIDNEY FAILURE, UNSPECIFIED Status: Acute (8) Pneumonia Code(s): J18.9 - PNEUMONIA, UNSPECIFIED ORGANISM Status: Acute (9) Pulmonary emboli Code(s): I26.99 - OTHER PULMONARY EMBOLISM WITHOUT ACUTE COR PULMONALE Status : Acute - Plan Plan: 29 year old male with no significant PMH presents with a one month history of progressive weakness, shortness of breath, and lower extremity swelling 1. HFrEF - Etiology unknown - BNP >4000 - Echo shows EF 20-25%, left apical clots measuring up to 1 cm, dilated cardiomyopathy - Cards consulted; appreciate recs - Pulm consulted; appreciate recs - Lasix IV; continue diuresis - Strict I&O's; net (-1185 mL) - Daily weights - Urine drug screen positive for methamphetamines - Dilated cardiomyopathy possibly 2/2 alcohol abuse and methamphetamine abuse 2. Bilateral pulmonary emboli - Multiple PE's throughout as noted on CTA chest; CXR mentions possible hemorrhage - No saddle emboli noted - D/t elevated INR, will hold off on anticoagulation at this time as patient as anticoagulated 2/2 liver failure - Bilateral lower extremity dopplers negative - Will get anticoagulation studies to further evaluate - Anticoagulate with NOAC when INR < 2 3. Acute liver failure - AST 3500, ALT 2697; pending AM labs - Abdominal ultrasound shows gallbladder sludge without sonographic findings of cholecystitis and trace perihepatic fluid - Hepatic doppler did not show any evidence of portal vein thrombosis - Continue to trend liver enzymes - Possibly related to hepatic congestion from heart failure - Studies pending for further evaluation of underlying etiology - Acute hepatitis panels negative 4. Hyperbilirubinemia - Likely 2/2 hepatic congestion from above - Continue to trend 5. Acute kidney injury - May be on opposite side of Starling curve, and kidney function may improve with lasix - Continue to monitor - Avoid nephrotoxic agents 6. Demand ischemia - Troponin elevated, but stable - Likely 2/2 demand from hypoperfusion 2/2 CHF exacerbation and third spacing - Cards consulted; appreciate recs 7. Lactic acidosis, resolved - Likely 2/2 hypoperfusion 8. Hemoptysis - TB pending - Possibly related to hemorrhage from PE's 9. Hyponatremia - Na 126 - Continue to trend - Likely 2/2 fluid overload 10. Leukocytosis - Initial concern for severe sepsis based on tachycardia and elevated WBC - Patient started on vanc, zosyn, levoquin in Ed - Blood cx obtained after initiation of abx - UA negative - Procalcitonin 2 - Continue PO levoquin per recommendations of pulm - Trend CBC 11. Coagulopathy - Picture consistent with DIC - Likely 2/2 liver failure - Heme consulted; appreciate recs - No anticoagulation at this time as patient therapeutic from liver failure 12. Elevated ammonia level - 2/2 liver failure - Lactulose BID Dispo: Diuresis. Cards and pulm recs. Trasnfer to telemetry per pulm recs. Anticipate LOS >48 hours. Addendum - Attending - Attending Attestation Date/Time: 03/23/19 4439 I personally evaluated the patient and discussed the management with Dr. Lackey I agree with the History, Examination, Assessment and Plan documented above with any addition or exceptions noted below. Overall improved hyponatremia worsened however will confirm and tighten his fluid restriction,overwise LFT improved and tolerating BB which was started yesterday. Appreciate all consultants inputs and recommendations. Convert to DOAC eliquis when INR subtherapeutic for his continued PE treatment.
[2019-03-22] MEDS: Furosemide 20 MG/2 ML VIAL SLOW IVP SCH (05:40)
[2019-03-22] MEDS ORDERED: Furosemide 40 MG/4 ML VIAL SLOW IVP SCH (06:00)
[2019-03-22 07:48] LABS: INR-International Normal Ratio 2.8; PTT 38.7 SEC (22.9-36.1); Prothrombin Time 29.7 SEC (12.0-14.7)
[2019-03-22 07:53] LABS: Mean Corpuscular HGB CONC 31.9 g/dL (32.0-36.0); Mean Corpuscular Hemoglobin 28.6 pg (27.0-31.0); Mean Corpuscular Volume 89.5 fL (78.0-98.0); Mean Platelet Volume 9.2 fL (7.4-10.4); Platelet Count 214 thou/uL (130-400); RBC Distribution Width 13.8 % (11.5-14.5); Red Blood Cell (RBC) Count 5.24 mill/uL (4.70-6.10); White Blood Cell (WBC) Count 15.2 thou/uL (4.8-10.8)
[2019-03-22 08:04] LABS: ALT (SGPT) 1385 U/L (8-55); AST (SGOT) 716 U/L (5-34); Albumin 2.4 g/dL (3.5-5.0); Alkaline Phosphatase 137 U/L (40-150); Anion Gap 13 mmol/L (10-20); BUN (Urea Nitrogen) 40 mg/dL (8.9-20.6); Bilirubin, Total 10.1 mg/dL (0.2-1.2); CK (CPK) 64 U/L (30-200); Calc. Creatinine Clearance 91 mL/min (70-130); Calcium 7.7 mg/dL (7.8-10.44); Carbon Dioxide 21 mmol/L (22-29); Chloride 94 mmol/L (98-107); Estimated GFR-MDRD 54; Globulin 2.3 g/dL (2.4-3.5); Glucose 141 mg/dL (70-105); Potassium 3.8 mmol/L (3.5-5.1); Protein, Total 4.7 g/dL (6.0-8.3); Sodium 124 mmol/L (136-145)
[2019-03-22 08:28] LABS: Band 7 % (5-11); Lymphocytes 13 % (21-51); MDiff Complete? YES; Monocytes 3 % (0-10); Neutrophil 75 % (42-75); Nucleated RBC 3 % (0); Platelet Morphology Comment Appears Adequate; RBC Morphology Normal; Reactive Lymphocytes 2 % (0-10)
[2019-03-22] MEDS ORDERED: Carvedilol 3.125 MG TAB PO SCH ×2 (09:30→10:00)
--- NOTE | 2019-03-22 09:51 | PRG ---
DATE OF SERVICE: 03/22/2019 SERVICE: Pulmonary Medicine. INTERVAL HISTORY: The patient is doing absolutely fantastic from respiratory standpoint. Denies any current chest pain, fevers, or chills. His abdominal distention and discomfort have improved. His appetite has returned. He has no complaints of shortness of breath. His cough is still present, but no longer productive of any sputum. PHYSICAL EXAMINATION: VITAL SIGNS: Afebrile, pulse 110, blood pressure 111/81, respirations 25, and saturations are 96% on room air. GENERAL: The patient is awake and alert, in no apparent distress. LUNGS: Decent air entry. Crackles are still present, but much improved. There are no longer present anteriorly. HEART: Normal rate and regular. ABDOMEN: Soft, nontender, and nondistended. Bowel sounds are positive. MUSCULOSKELETAL: No cyanosis or clubbing. There is 1+ pitting in the bilateral lower extremities, which is drastically improved. : No Gifford. NEUROLOGIC: Grossly nonfocal. LABORATORY DATA: WBC 15.2. CBC is otherwise unremarkable/stable. Hemoglobin has improved to 15. INR is downtrending to 2.8. Fibrinogen level is increasing to 237. Sodium 124, creatinine downtrending to 1.82, BUN 40. Total bilirubin 10.1 and trending upward, though the AST and ALT are improving dramatically. Liver function studies are otherwise unremarkable. Urinalysis is unremarkable. Urine drug screen is positive for methamphetamines, however, the patient denies. Serologies for hepatitis, and urine strep antigen is unremarkable. Blood cultures x2 are unremarkable, urine cultures negative to date. IMAGING STUDIES: Echocardiogram shows 20% ejection fraction and dilated four chambers. Moderately reduced RV function. Apical thrombi are noted. ASSESSMENT: 1. Acute systolic heart failure. 2. Acute hepatic failure with improving inflammatory profile. 3. Acute pulmonary embolism, small. 4. Left ventricular thrombus. 5. Acute kidney injury. DISCUSSION AND PLAN: At this point, the patient is stable for transition out of the ICU to the telemetry unit. I will schedule some lactulose twice daily. If he starts having frequent bowel movements, we will back off on this. The inflammatory profile of the liver is improved. INR is improved, but the bilirubin, typically lagging indicator, has gone up. We will continue to diurese through time, but he is returning to euvolemia quickly. I think once daily Lasix would be perfectly reasonable at this point. I will check a magnesium level tomorrow morning and give him a very small dose of potassium today. Job ID: [id number] MTDD
[2019-03-22 10:37] LABS: Protein C Activity 14 % (78-152)
[2019-03-22 14:34] LABS: Factor VIII Test 426.5 % ACTIVE (56-157)
[2019-03-22 15:54] LABS: INR-International Normal Ratio 2.6; PTT 36.7 SEC (22.9-36.1); Prothrombin Time 28.1 SEC (12.0-14.7)
[2019-03-22] MEDS: Carvedilol 3.125 MG TAB PO SCH (15:59)
[2019-03-22] MEDS: Benzonatate 100 MG CAP PO PRN (15:59)
[2019-03-22] MEDS ORDERED: GoLYTELY 4,000 ml Bottle PO SCH (18:00)
--- NOTE | 2019-03-22 18:19 | PRG ---
DATE OF SERVICE: 03/22/2019 REASON FOR CONSULTATION: Elevated LFTs. SUBJECTIVE: Per nursing staff, there are no acute events or problems overnight, although the patient does complain of increased midepigastric right upper quadrant and right lower quadrant abdominal pain. He describes the pain as a sharp/stabbing type sensation, is constant with no clear alleviating or exacerbating factors. Of note, he has not had a bowel movement for the last 3 to 4 days and was placed on lactulose administration earlier today to facilitate having a bowel movement. Otherwise, the patient denies any nausea, vomiting, fevers, chills, hematemesis, melena, or hematochezia. Of note, per nursing staff, he did have an episode of hemoptysis earlier today of minimal amount of blood and blood clot. PHYSICAL EXAMINATION: VITAL SIGNS: Temperature 96.9, pulse 113, blood pressure 112/74, respiratory rate 27, and saturating 95% on room air. GENERAL: The patient is lying in bed, in mild distress. Alert and oriented x4. CARDIOVASCULAR: Tachycardic rate, but regular rhythm. RESPIRATORY: Diminished breath sounds auscultated in all lung covarrubias. ABDOMEN: Normoactive bowel sounds. Soft, nondistended. Tenderness to palpation in the midepigastric, right upper quadrant, and right lower quadrant. LABORATORY DATA: CBC with a white blood cell count of 15.2, hemoglobin 15, hematocrit 46.9, platelets 214. INR 2.8. Chemistry with a sodium of 124, potassium 3.8, chloride 94, CO2 of 21, BUN 40, creatinine 1.82, glucose 141. AST 716, ALT 1385, alkaline phosphatase 137, total bilirubin 10.1. IMAGING DATA: No current GI imaging is available for review. ASSESSMENT AND PLAN: The patient is a 29-year-old male with no significant past medical history, presenting with multiorgan dysfunction secondary to sepsis, pulmonary embolism, cardiomyopathy/congestive heart failure in addition to elevated transaminases consistent with shock liver. Shock liver: The patient is presenting with a recent history of decreased oral nutritional intake and altered mental status within 2 to 3 days prior to admission while he was residing in his truck outside of his stepmother's home. On evaluation in the ER, he was noted to have significantly elevated liver function tests with his AST greater than 3500 and an ALT of 2697, but normal alkaline phosphatase and total bilirubin is 6.3. Given this pattern of elevation, it is more consistent with hepatocellular injury with the differential including medications/toxins (especially with his tox screen positive for methamphetamine), acute viral hepatitis, autoimmune hepatitis, ischemia secondary to congestive hepatopathy/congestive heart failure, Damián disease, Budd-Chiari or even possibly heatstroke. However, he is currently responding to treatment with a significant reduction in his transaminases today as well as decreased INR. However, his total bilirubin is a little bit more elevated yesterday, but this will lag behind the other LFTs in terms of its rise and fall as part of treatment. RECOMMENDATIONS: 1. Would continue to trend LFTs and INR daily for assessment in response to treatment. 2. Agree with antibiotic administration for treatment of probable sepsis contributing to hypertension and congestive hepatopathy. 3. We will follow up on serologies obtained on March 21 for other underlying liver pathology. 4. Would avoid any potential hepatotoxins during this hospitalization. 5. Would perform serial neurological exams daily as altered mental status could be a harbinger of worsening liver function/failure. We will continue to follow. Please call with any questions. Job ID: [id number]
[2019-03-23 05:34] LABS: INR-International Normal Ratio 2.7; PTT 38.2 SEC (22.9-36.1); Prothrombin Time 28.4 SEC (12.0-14.7)
--- NOTE | 2019-03-23 05:56 | PDOC.FM ---
- Subjective Subjective: Patient states he is doing better this AM. No significant overnight events. Patient denies shortness of breath this morning. He states he is urinating frequently. He notices that his legs are improving in regards to swelling. Patient denies chest pain, N/V. He does endorse an occasional cough. Patient encouraged to ambulate with assist. - Objective MAR Reviewed: Yes Vital Signs & Weight: Vital Signs (12 hours) Temp Pulse Ox 03/23/19 03:48 98.6 F 03/22/19 23:50 98.8 F 03/22/19 20:00 95 03/22/19 19:15 97.9 F Weight Weight 107.002 kg Most Recent Monitor Data Heart Rate from ECG 108 NIBP 109/71 NIBP BP-Mean 83 Respiration from ECG 37 I&O: 03/21/19 03/22/19 03/23/19 06:59 06:59 06:59 Intake Total 1244 1670 1200 Output Total 800 3225 1201 Balance 444 -1555 -1 Result Diagrams: 03/23/19 05:04 03/23/19 05:04 EKG Reviewed by me: Yes Radiology Reviewed by me: Yes Phys Exam - Physical Examination Constitutional: NAD Laying in bed on exam HEENT: moist MMs Respiratory: no wheezing, no rales Mildly tachycardic Gastrointestinal: soft, non-tender, no distention, positive bowel sounds 2+ pitting edema around ankles Pedal pulses difficult to palpate d/t edema, but faint pulses detected Neurological: non-focal, moves all 4 limbs Skin: cap refill <2 seconds Deviation from normal: stria on abdomen Dx/Plan (1) Acute heart failure Code(s): I50.9 - HEART FAILURE, UNSPECIFIED Status: Acute (2) Hyperbilirubinemia Code(s): E80.6 - OTHER DISORDERS OF BILIRUBIN METABOLISM Status: Acute (3) Increased ammonia level Code(s): R79.89 - OTHER SPECIFIED ABNORMAL FINDINGS OF BLOOD CHEMISTRY Status : Acute (4) Demand ischemia Code(s): I24.8 - OTHER FORMS OF ACUTE ISCHEMIC HEART DISEASE Status: Acute (5) Lactic acidosis Code(s): E87.2 - ACIDOSIS Status: Acute (6) Acute liver failure Status: Acute (7) Acute renal injury Code(s): N17.9 - ACUTE KIDNEY FAILURE, UNSPECIFIED Status: Acute (8) Pneumonia Code(s): J18.9 - PNEUMONIA, UNSPECIFIED ORGANISM Status: Acute (9) Pulmonary emboli Code(s): I26.99 - OTHER PULMONARY EMBOLISM WITHOUT ACUTE COR PULMONALE Status : Acute - Plan Plan: 29 year old male with no significant PMH presents with a one month history of progressive weakness, shortness of breath, and lower extremity swelling 1. HFrEF (20-25%) - Etiology unknown - BNP >4000 - Echo shows EF 20-25%, left apical clots measuring up to 1 cm, dilated cardiomyopathy - Cards consulted; appreciate recs - Pulm consulted; appreciate recs - Lasix IV; continue diuresis - Strict I&O's; diuresing well - Daily weights - Urine drug screen positive for methamphetamines - Dilated cardiomyopathy possibly 2/2 alcohol abuse and methamphetamine abuse 2. Bilateral pulmonary emboli - Multiple PE's throughout as noted on CTA chest; CXR mentions possible hemorrhage - No saddle emboli noted - D/t elevated INR, will hold off on anticoagulation at this time as patient as anticoagulated 2/2 liver failure - Bilateral lower extremity dopplers negative - Will get anticoagulation studies to further evaluate; may need to repeat at later date to confirm accuracy d/t degree of liver dysfunction when those labs were drawn - Anticoagulate with NOAC when INR < 2; daily PT/PTT/INR 3. Acute liver failure - Initial AST 3500, ALT 2697; downtrending - Abdominal ultrasound shows gallbladder sludge without sonographic findings of cholecystitis and trace perihepatic fluid - Hepatic doppler did not show any evidence of portal vein thrombosis - Continue to trend liver enzymes - Likely related to hepatic congestion from heart failure - Studies pending for further evaluation of underlying etiology - Acute hepatitis panels negative 4. Hyperbilirubinemia - Likely 2/2 hepatic congestion from above - Continue to trend 5. Acute kidney injury - May be on opposite side of Starling curve, and kidney function may improve with lasix - Continue to monitor - Avoid nephrotoxic agents - Continues to improve 6. Demand ischemia - Troponin elevated, but stable - Likely 2/2 demand from hypoperfusion 2/2 CHF exacerbation and third spacing - Cards consulted; appreciate recs 7. Lactic acidosis, resolved - Likely 2/2 hypoperfusion 8. Hemoptysis - TB pending - Possibly related to hemorrhage from PE's 9. Hyponatremia - Na 126 --> 121 - Continue to trend - Likely 2/2 fluid overload - May need further fluid restriction - Will order serum and urine osmolality and urine sodium to further evaluate 10. Leukocytosis - Initial concern for severe sepsis based on tachycardia and elevated WBC - Patient started on vanc, zosyn, levoquin in Ed - Blood cx obtained after initiation of abx - UA negative - Procalcitonin 2 - Continue PO levoquin for possible infection leading to sepsis - Trend CBC 11. Coagulopathy - Picture consistent with DIC - Likely 2/2 liver failure - Heme consulted; appreciate recs - No anticoagulation at this time as patient therapeutic from liver failure; Start NOAC when INR <2 12. Elevated ammonia level - 2/2 liver failure - Ammonia wnl now Dispo: Diuresis. Cards and pulm recs. Trasnfer to telemetry per pulm recs. Continue therapeutic anticoagulation and monitoring of liver and kidney function. Addendum - Attending - Attending Attestation Date/Time: 03/23/19 [id number] I personally evaluated the patient and discussed the management with Dr. Lackey I agree with the History, Examination, Assessment and Plan documented above with any addition or exceptions noted below.
[2019-03-23 05:57] LABS: ALT (SGPT) 1049 U/L (8-55); AST (SGOT) 369 U/L (5-34); Albumin 2.5 g/dL (3.5-5.0); Alkaline Phosphatase 166 U/L (40-150); Anion Gap 13 mmol/L (10-20); BUN (Urea Nitrogen) 45 mg/dL (8.9-20.6); Bilirubin, Total 12.2 mg/dL (0.2-1.2); Calc. Creatinine Clearance 93 mL/min (70-130); Calcium 7.8 mg/dL (7.8-10.44); Carbon Dioxide 20 mmol/L (22-29); Chloride 92 mmol/L (98-107); Estimated GFR-MDRD 55; Globulin 2.5 g/dL (2.4-3.5); Glucose 123 mg/dL (70-105); Potassium 4.4 mmol/L (3.5-5.1); Sodium 121 mmol/L (136-145)
[2019-03-23] MEDS: Furosemide 20 MG/2 ML VIAL SLOW IVP SCH (06:13)
[2019-03-23 08:25] LABS: Band 3 % (5-11); Hemoglobin 14.4 g/dL (14.0-18.0); Lymphocytes 12 % (21-51); MDiff Complete? YES; Mean Corpuscular HGB CONC 31.6 g/dL (32.0-36.0); Mean Corpuscular Hemoglobin 28.6 pg (27.0-31.0); Mean Corpuscular Volume 90.4 fL (78.0-98.0); Mean Platelet Volume 9.4 fL (7.4-10.4); Monocytes 6 % (0-10); Neutrophil 74 % (42-75); Nucleated RBC 2 % (0); Platelet Count 207 thou/uL (130-400); RBC Distribution Width 14.1 % (11.5-14.5); RBC Morphology Normal; Reactive Lymphocytes 5 % (0-10); Red Blood Cell (RBC) Count 5.02 mill/uL (4.70-6.10); White Blood Cell (WBC) Count 22.7 thou/uL (4.8-10.8)
[2019-03-23] MEDS: Carvedilol 3.125 MG TAB PO SCH ×2 (09:53→18:45)
[2019-03-23 10:17] LABS: Lyme IgG/IgM AB <0.91 ISR (0.00-0.90)
--- NOTE | 2019-03-23 11:32 | PRG ---
DATE OF SERVICE: 03/23/2019 SERVICE: Pulmonary Medicine. INTERVAL HISTORY: The patient is doing fine from respiratory standpoint. He is breathing comfortably. He has no complaints of chest pain, fevers, or chills. He got a dose of Lasix this morning, but he has only peed once since it had occurred. He denies any current fevers, chills, coughs, sputum production, nausea, or vomiting. PHYSICAL EXAMINATION: VITAL SIGNS: Afebrile, pulse 99, blood pressure 100/67, respirations 32, saturation 95% on room air. GENERAL: The patient is awake and alert, in no apparent distress. LUNGS: Excellent air entry. There is no prolonged expiratory phase. No wheezing or crackles are appreciated. HEART: Normal rate regular. ABDOMEN: Soft, nontender, nondistended. Bowel sounds are positive. MUSCULOSKELETAL: No cyanosis or clubbing. There is 2+ pitting in the bilateral lower extremities, which actually increased compared to yesterday. LABORATORY DATA: WBC 22.7, hemoglobin 14.4, platelets 207,000. INR 2.7 and roughly stable x3 draws. Sodium 121, creatinine 1.77, BUN 45. Basic metabolic profile is otherwise unremarkable. AST and ALT continued to trend downward. Total bilirubin up trending to 12.2. Ammonia 53, homocystine 25, procalcitonin 2.37. Urinalysis is unremarkable. Urine drug screen is only positive for benzodiazepines. Strep urine pneumonia antigen is negative. HIV 1 and 2, hepatitis A, B, and C serologies, Brucella, and Lyme disease are all unremarkable. Blood cultures x2 and urine culture unremarkable. ASSESSMENT: 1. Acute systolic heart failure. 2. Acute liver failure secondary to likely hepatic congestion. 3. Acute pulmonary embolism, small. 4. Left ventricular thrombus. 5. Coagulopathy. DISCUSSION/PLAN: The patient is clinically doing a little bit better. His liver function and inflammatory studies continue to trend down, though the INR is stable and the bilirubin continues to trend up. These are the two things likely lagging indicators. We will continue to diurese the patient through time as tolerated. Pulmonary Critical Care will continue to follow along while the patient remains in this location, but from my perspective, he can be considered for transition to the telemetry unit. Job ID: [id number]
[2019-03-23 11:41] LABS: HEX PHOS LA Tube 2 49.7 SEC; Hexagonal Phospholipid Neut 6.3 SEC (0-8.0)
[2019-03-23] MEDS ORDERED: Furosemide 40 MG/4 ML VIAL SLOW IVP SCH (14:00)
[2019-03-23 15:37] LABS: ANA Symphony (Qualitative) Negative (Negative); ANA Symphony (Quantitative) 0.1 Ratio (< 0.7 Negative); dsDNA IgG Antibody 0.6 IU/mL (<10 Negative)
[2019-03-23 16:26] LABS: Cardiolipin IgA Ab 2.1 APL-U/mL (<14 Negative); Cardiolipin IgG Ab 1.6 GPL-U/mL (<10 Negative); Cardiolipin IgM Ab Less than 0.8 MPL-U/mL (<10 Negative); EliA APS New Method **** NEW METHOD ****
[2019-03-23 17:01] LABS: Amphetamine Not Detected (NotDetected); Barbiturates Screen Not Detected (NotDetected); Benzodiazepine Screen Not Detected (NotDetected); Cocaine Metabolite Screen Not Detected (NotDetected); Medtox Control Line Valid? VALID (VALID); Medtox Reader # READER 4; Methadone Not Detected (NotDetected); Methamphetamine Not Detected (NotDetected); Opiate Screen Not Detected (NotDetected); Oxycodone Screen Not Detected (NotDetected); Phencyclidine (PCP) Not Detected (NotDetected); THC/Cannabinoid Screen Not Detected (NotDetected); Tricyclic Screen Not Detected (NotDetected)
--- NOTE | 2019-03-23 18:28 | PRG ---
DATE OF SERVICE: 03/23/2019 REASON FOR CONSULTATION: Elevated LFTs/shock liver. SUBJECTIVE: The patient was able to have a larger nonbloody bowel movement yesterday and did have an additional bowel movement today with mild increase in his right-sided abdominal pain. He has also been able to tolerate both breakfast and dinner without difficulty, although he does continue to have generalized whole-body pain, but more specifically within the right upper quadrant and right lower quadrant. Otherwise, he is doing well with no complaints of nausea, vomiting, fevers, chills, hematemesis, melena, hematochezia, dysphagia, or odynophagia. OBJECTIVE: VITAL SIGNS: Temperature 97.7, pulse 102, blood pressure 101/74, respiratory rate 32, and saturating 95% on room air. GENERAL: The patient was sitting at bedside, in no acute distress. Alert and oriented x4. CARDIOVASCULAR: Tachycardic rate, but regular rhythm. RESPIRATORY: Diminished breath sounds auscultated in all lung covarrubias. ABDOMEN: Normoactive bowel sounds. Soft and nondistended. Tenderness to palpation in the right upper quadrant and right lower quadrant. LABORATORY DATA: CBC with a white blood cell count of 22.7, hemoglobin 14.4, hematocrit 45.4, and platelets 207. INR 2.7. Chemistry with a sodium of 121, potassium 4.4, chloride 92, CO2 of 20, BUN 45, creatinine 1.77, and glucose 123. AST 369, ALT 1049, alkaline phosphatase 166, total bilirubin 12.2. Serologies have been negative for both MARK and HIV with ASMA and VZV pending. IMAGING DATA: No current GI imaging is available for review. ASSESSMENT AND PLAN: The patient is a 29-year-old male with no significant past medical history, presenting with multiorgan dysfunction secondary to sepsis, pulmonary embolism, and cardiomyopathy/congestive heart failure, in addition to shock liver. 1. Shock liver: The patient is presenting with a recent history of decreased oral nutritional intake and altered mental status 2 to 3 days prior to admission while he was residing in his truck outside his stepmother's home. Per review of his chart, there was some question about methamphetamine use contributing to his current clinical situation. On evaluation in the ER, he was noted to have significantly elevated liver function tests with both AST and ALT greater than 2500, consistent with shock liver. Given this pattern, elevation is more consistent with an hepatocellular injury with the differential including medications/toxins, autoimmune viral hepatitis, acute viral hepatitis, ischemia secondary to congestive hepatopathy/congestive heart failure and Damián disease. At this point, acute viral hepatitis has been ruled out with autoimmune profile still pending, but partially negative thus far. He is currently responding well to treatment with a significant reduction in his transaminases when compared to admission. However, given the rise and fall pattern of his transaminases, they are appropriate with his total bilirubin lagging behind his transaminases. RECOMMENDATIONS: 1. We would continue to trend LFTs and INR daily. 2. Agree with antibiotic administration for treatment of sepsis contribute to hypotension and congestive hepatopathy. 3. We will continue to follow up on serologies obtained during this admission for other underlying liver pathology. 4. We would avoid any potential hepatotoxins during this hospitalization. 5. Pain control per Primary Team, but we would consider addition of tramadol to his regimen. 6. We would perform serial neurological exams daily as altered mental status could be a harbinger of worsening hepatic function. 7. We will continue to follow. Please call with any questions. Job ID: [id number]
[2019-03-23] MEDS ORDERED: traMADol HCl 50 MG TAB PO SCH (20:45)
[2019-03-24 07:04] LABS: INR-International Normal Ratio 2.3; PTT 39.4 SEC (22.9-36.1)
[2019-03-24 07:12] LABS: Hemoglobin 14.7 g/dL (14.0-18.0); Mean Corpuscular HGB CONC 30.7 g/dL (32.0-36.0); Mean Corpuscular Hemoglobin 28.2 pg (27.0-31.0); Mean Corpuscular Volume 91.9 fL (78.0-98.0); Mean Platelet Volume 9.5 fL (7.4-10.4); Platelet Count 202 thou/uL (130-400); RBC Distribution Width 14.9 % (11.5-14.5); White Blood Cell (WBC) Count 19.4 thou/uL (4.8-10.8)
[2019-03-24 07:23] LABS: ALT (SGPT) 846 U/L (8-55); AST (SGOT) 240 U/L (5-34); Albumin 2.8 g/dL (3.5-5.0); Alkaline Phosphatase 161 U/L (40-150); Anion Gap 19 mmol/L (10-20); BUN (Urea Nitrogen) 53 mg/dL (8.9-20.6); Bilirubin, Total 13.3 mg/dL (0.2-1.2); Calc. Creatinine Clearance 83 mL/min (70-130); Calcium 8.3 mg/dL (7.8-10.44); Carbon Dioxide 19 mmol/L (22-29); Chloride 88 mmol/L (98-107); Estimated GFR-MDRD 47; Globulin 2.9 g/dL (2.4-3.5); Glucose 94 mg/dL (70-105); Potassium 4.8 mmol/L (3.5-5.1); Protein, Total 5.7 g/dL (6.0-8.3); Sodium 121 mmol/L (136-145)
[2019-03-24 07:59] LABS: Band 4 % (5-11); Burr Cells SLIGHT = 2-5 cells (100X) (0-1/hpf); Lymphocytes 12 % (21-51); MDiff Complete? YES; Monocytes 5 % (0-10); Neutrophil 77 % (42-75); Nucleated RBC 1 % (0); Platelet Morphology Comment Appears Adequate; Reactive Lymphocytes 2 % (0-10)
--- NOTE | 2019-03-24 08:53 | PDOC.FM ---
- Subjective Subjective: Patient doing well this AM. He states he is doing much better. He did not complain of any pain this morning; however, he did complain of "body aches and muscle aches" yesterday for which he was given tramadol last night. He is requesting a lot from nursing in terms of basic needs (lifting head of bed, etc. ). However, nurses report that they will go into room and he will be walking himself to the restroom. Patient states he is having normal bowel movements. - Objective MAR Reviewed: Yes Vital Signs & Weight: Vital Signs (12 hours) Temp Pulse Resp BP Pulse Ox 03/24/19 07:08 97.8 F 03/24/19 04:00 97.8 F 18 100 03/24/19 00:00 98.1 F 99 20 115/62 98 Weight Weight 109.951 kg Most Recent Monitor Data Heart Rate from ECG 86 NIBP 106/78 NIBP BP-Mean 87 Respiration from ECG 14 I&O: 03/23/19 03/24/19 03/25/19 06:59 06:59 06:59 Intake Total 1670 1800 Output Total 1821 900 Balance -151 900 Result Diagrams: 03/24/19 06:47 03/24/19 06:47 EKG Reviewed by me: Yes Radiology Reviewed by me: Yes Phys Exam - Physical Examination Constitutional: NAD HEENT: moist MMs Bibasilar crackles Cardiovascular: RRR Gastrointestinal: soft, non-tender, no distention, positive bowel sounds Musculoskeletal: pulses present 3+ edema, pitting lower extremities Neurological: non-focal, moves all 4 limbs Psychiatric: normal affect, A&O x 3 Skin: no rash, cap refill <2 seconds Dx/Plan (1) Acute heart failure Code(s): I50.9 - HEART FAILURE, UNSPECIFIED Status: Acute (2) Hyperbilirubinemia Code(s): E80.6 - OTHER DISORDERS OF BILIRUBIN METABOLISM Status: Acute (3) Increased ammonia level Code(s): R79.89 - OTHER SPECIFIED ABNORMAL FINDINGS OF BLOOD CHEMISTRY Status : Acute (4) Demand ischemia Code(s): I24.8 - OTHER FORMS OF ACUTE ISCHEMIC HEART DISEASE Status: Acute (5) Lactic acidosis Code(s): E87.2 - ACIDOSIS Status: Acute (6) Acute liver failure Status: Acute (7) Acute renal injury Code(s): N17.9 - ACUTE KIDNEY FAILURE, UNSPECIFIED Status: Acute (8) Pneumonia Code(s): J18.9 - PNEUMONIA, UNSPECIFIED ORGANISM Status: Acute (9) Pulmonary emboli Code(s): I26.99 - OTHER PULMONARY EMBOLISM WITHOUT ACUTE COR PULMONALE Status : Acute - Plan Plan: 29 year old male with no significant PMH presents with a one month history of progressive weakness, shortness of breath, and lower extremity swelling 1. HFrEF (20-25%), new onset - BNP >4000 - Echo shows EF 20-25%, left apical clots measuring up to 1 cm, dilated cardiomyopathy - Cards consulted; appreciate recs - Pulm consulted; appreciate recs - Lasix IV; continue diuresis - Strict I&O's; 900 mL output yesterday (patient had low BP for which lasix was held yesterday afternoon) - Daily weights (up 1 Ib) - Urine drug screen positive for methamphetamines - Dilated cardiomyopathy possibly 2/2 alcohol abuse and methamphetamine abuse - Patient started on dobutamine drip per cards and pulm d/t low BP and need for continued diuresis 2. Bilateral pulmonary emboli - Multiple PE's throughout as noted on CTA chest; CXR mentions possible hemorrhage - No saddle emboli noted - D/t elevated INR, will hold off on anticoagulation at this time as patient as anticoagulated 2/2 liver failure (INR 2.3 this AM) - Bilateral lower extremity dopplers negative - Will get anticoagulation studies to further evaluate; may need to repeat at later date to confirm accuracy d/t degree of liver dysfunction when those labs were drawn - Anticoagulate with NOAC when INR < 2; daily PT/PTT/INR (INR this AM 2.3) 3. Acute liver failure - Initial AST 3500, ALT 2697; downtrending, bilirubin uptrending; however this is expected, continue to monitor - Abdominal ultrasound shows gallbladder sludge without sonographic findings of cholecystitis and trace perihepatic fluid - Hepatic doppler did not show any evidence of portal vein thrombosis - Continue to trend liver enzymes - Likely related to hepatic congestion from heart failure - Studies pending for further evaluation of underlying etiology - Acute hepatitis panels negative - Neurologic eval daily as indicator of worsening liver function 4. Hyperbilirubinemia - Likely 2/2 hepatic congestion from above - Continue to trend; has been uptrending 5. Acute kidney injury - May be on opposite side of Star[place] curve, and kidney function may improve with lasix - Continue to monitor - Avoid nephrotoxic agents - Worsened this AM. May be d/t poor diuresis yesterday/hypoperfusion from third spacing (albumin low) 6. Demand ischemia - Troponin elevated, but stable - Likely 2/2 demand from hypoperfusion 2/2 CHF exacerbation and third spacing - Cards consulted; appreciate recs 7. Lactic acidosis, resolved - Likely 2/2 hypoperfusion 8. Hemoptysis - TB pending - Possibly related to hemorrhage from PE's 9. Hyponatremia - Na 126 --> 121 - Continue to trend - Likely 2/2 fluid overload - May need further fluid restriction - Urine sodium, urine osm resulted, but serum osm pending (apparently had to be send out) - Added sodium bicarb per pulm 10. Leukocytosis - Initial concern for severe sepsis based on tachycardia and elevated WBC - Patient started on vanc, zosyn, levoquin in Ed - Blood cx obtained after initiation of abx; blood cultures negative to date - UA negative - Procalcitonin 2 - Continue PO levoquin for possible infection leading to sepsis - Trend CBC; WBC trending down, but still with neutrophilia 11. Coagulopathy - Picture consistent with DIC - Likely 2/2 liver failure - Heme consulted; appreciate recs - No anticoagulation at this time as patient therapeutic from liver failure; Start NOAC when INR <2 (INR 2.3 this AM) 12. Elevated ammonia level - 2/2 liver failure - Ammonia wnl now Dispo: Patient now on dobutamine gtt. Will remain in IMCU. Repeat echo pending today to evaluate need for further interventions. Addendum - Attending - Attending Attestation Date/Time: 03/24/19 5503 I personally evaluated the patient and discussed the management with Dr. Lackey I agree with the History, Examination, Assessment and Plan documented above with any addition or exceptions noted below. Appreciate recommendations from Specialist note patient now on dobutamine drip, significant third spacing and he remains hyponatremic.
--- NOTE | 2019-03-24 09:01 | PDOC.CTH ---
Cardiology Progress Note - Subjective The pt seen and examined. No overnight events. He cont having intermittent SOB with mild exertion. He took a shower yesterday without any difficulties. - Objective Vital Signs Temp Pulse Resp BP Pulse Ox 03/24/19 07:08 97.8 F 03/24/19 04:00 97.8 F 18 100 03/24/19 00:00 98.1 F 99 20 115/62 98 Weight 242 lb 6.4 oz 03/23/19 03/24/19 03/25/19 06:59 06:59 06:59 Intake Total 1670 1800 Output Total 1821 900 Balance -151 900 - Physical Examination General/Neuro: alert & oriented x3 Neck: no JVD present Lungs: CTA Heart: RRR Abdomen: soft Extremities: other: (1-2+ pitting BLE edea, Lt>Rt) - Telemetry Telemetry Rhythm: SR - Labs Result Diagrams: 03/24/19 06:47 03/24/19 06:47 Troponin/CKMB CK-MB (CK-2) 5.3 ng/mL (0-6.6) 03/20/19 20:37 Troponin I 0.267 ng/mL (< 0.028) H 03/21/19 03:30 - Assessment/Plan 1. Acute on Chronic Systolic HF with EF 20-25% - stable with Lasix IV and Coreg ; not on YINA/ARB due to FILEMON 2. Bilat PE and several Thrombi in [place] with "smoke" in LV - Not on OAC due to elevated INR and Acute Liver failure; Will start NOAC when INR < 2; 3. FILEMON - improving 4. Hyponatremia - On fluid restriction 5. Acute Liver failure - improving 6. BLE edema - Lt>Rt; improving MAR reviewed * Echo on 03/21/2019 with EF 20-25%, dilated IVC, 2-3 apical thrombi 1cm with smoke in LV, mild dilated bilat ventricles, mild dilated LA, trace MR, mild-mod TR, mod ERA. * Another Echo today for Re-eval EF and possible cardiac cath if cont EF <35% ( The pt is uninsured and may not be able to afford LifeVest) Pt. seen and eval. by me. I agree with the A/P by the [employer]ME WATCHMAN. Chest clear. RRR. Echo is pending. He may be overdiuresed or intravascularly somewhat dry. May try dobutamine to increase the C.O. to better perfuse the kidneys and hopefully better urinary output. If the EF does not improve he may need a cardiac cath and a LIFE-VEST prior to d/c. Review of Systems - Review of Systems Constitutional: reports: weakness EENTM: reports: no symptoms reported Respiratory: reports: see HPI Cardiac (ROS): reports: no symptoms reported ABD/GI: reports: no symptoms reported : reports: no symptoms reported Musculoskeletal: reports: no symptoms reported Skin: reports: no symptoms reported
[2019-03-24] MEDS: Furosemide 40 MG/4 ML VIAL SLOW IVP SCH (09:23)
[2019-03-24] MEDS: Carvedilol 3.125 MG TAB PO SCH ×2 (09:24→20:54)
--- NOTE | 2019-03-24 09:37 | PDOC.CTH ---
Cardiology Progress Note - Objective Vital Signs Temp Pulse Resp BP Pulse Ox 03/24/19 07:08 97.8 F 03/24/19 04:00 97.8 F 18 100 03/24/19 00:00 98.1 F 99 20 115/62 98 Weight 242 lb 6.4 oz 03/23/19 03/24/19 03/25/19 06:59 06:59 06:59 Intake Total 1670 1800 Output Total 1821 900 Balance -151 900 - Labs Result Diagrams: 03/24/19 06:47 03/24/19 06:47 Troponin/CKMB CK-MB (CK-2) 5.3 ng/mL (0-6.6) 03/20/19 20:37 Troponin I 0.267 ng/mL (< 0.028) H 03/21/19 03:30
[2019-03-24] MEDS: DOBUTamine 500 mg/250 ml 250 ML IVPB SCH ×2 (12:33→21:00)
[2019-03-24 13:13] LABS: CMV DNA-PCR Test Negative (Negative)
--- NOTE | 2019-03-24 14:01 | PRG ---
DATE OF SERVICE: 03/24/2019 SERVICE: Pulmonary Medicine. INTERVAL HISTORY: The patient is having very marginal blood pressures. He is not making as good urine as he did previously. He cannot provide any additional elements of the history. Lower extremity edema is actually much worse. PHYSICAL EXAMINATION: VITAL SIGNS: Afebrile, pulse 94, blood pressure 113/67, respirations 17, saturation 95% on room air. GENERAL: The patient is awake and alert, in no apparent distress. LUNGS: Decent air entry. No prolonged expiratory phase. Crackles are present. No wheezing. HEART: Normal rate and regular. ABDOMEN: Soft, nontender, nondistended. Bowel sounds are positive. MUSCULOSKELETAL: No cyanosis or clubbing. There is 2 to 3+ pitting in bilateral lower extremities. NEUROLOGIC: Grossly nonfocal. LABORATORY DATA: WBC 19.4, hemoglobin 14.7, and platelets 202,000, neutrophil count remains at 77% on top of 4% bands. Lymphocytes are stable. INR 2.3 and gently downtrending. Creatinine 2.05. Basic metabolic profile is otherwise unremarkable. AST and ALT trend downward, alkaline phosphatase is improving. Total bilirubin is trending upward gently. Urinalysis was repeated and was unremarkable. All serologies that have resulted are negative to date. All immunology studies are also unremarkable. Blood cultures x2 and urine culture are negative. ASSESSMENT: 1. Acute systolic heart failure. 2. Acute liver failure secondary to hepatic congestion. 3. Acute pulmonary embolism, small. 4. Left ventricular thrombus. 5. Coagulopathy secondary to liver disease. DISCUSSION AND PLAN: Once the INR is below 2, we will initiate anticoagulation. He will need to be on something that he will be able to have access to in the outpatient setting. I will initiate some dobutamine in order to improve cardiac output. Beta-guillermina will be interrupted as he is not tolerating this very well. INR has improved suggesting synthetic function of the liver is getting better. The bilirubin is always a lagging indicator and it does not alarm me that it is going up still. He is not having any significant encephalopathy. Pulmonary Critical Care will continue to follow along, but since we are starting him on dobutamine, I would prefer to keep him in the IMCU. Job ID: [id number]
[2019-03-24 15:13] LABS: Brucella IgM Ab Negative (Negative)
--- NOTE | 2019-03-24 18:18 | PRG ---
DATE OF SERVICE: 03/24/2019 REASON FOR CONSULTATION: Elevated LFTs/shock liver/acute liver failure. SUBJECTIVE: The patient continues to have right upper quadrant abdominal pain, but has improved when compared to previous. He was given tramadol last night in an attempt to help with his whole-body pain, but he states that it did not do anything. Today, he has not been able to have a bowel movement, but has not been very active and has not been sitting at bedside or getting out of bed. Otherwise, he denies any complaints of nausea, vomiting, fevers, chills, hematemesis, melena, hematochezia, dysphagia, or odynophagia. OBJECTIVE: VITAL SIGNS: Temperature 98.1, pulse 97, blood pressure 105/71, respiratory rate 25, saturating 95% on room air. GENERAL: The patient is lying in bed, in no acute distress. Alert and oriented x4. CARDIOVASCULAR: Tachycardic rate, but regular rhythm. RESPIRATORY: Diminished breath sounds auscultated in the bilateral lower lung covarrubias with possible crackles. ABDOMEN: Normoactive bowel sounds. Soft, nondistended. Tenderness to palpation in the right upper quadrant and right lower quadrant. LABORATORY DATA: CBC with a white blood cell count of 19.4, hemoglobin 14.7, hematocrit 47.8, platelets 202. INR 2.3. Chemistry with a sodium of 121, potassium 4.8, chloride 88, CO2 of 19, BUN 53, creatinine 2.05, glucose 94, AST 240, ALT 846, alkaline phosphatase 161, total bilirubin 13.3, albumin 2.8. IMAGING DATA: No current GI imaging is available for review. ASSESSMENT AND PLAN: The patient is a 29-year-old male with no significant past medical history, presenting with multiorgan dysfunction secondary to sepsis, pulmonary embolism, cardiomyopathy/congestive heart failure, and acute liver failure. Shock liver/acute liver failure. The patient has been in the hospital for approximately 3 days. At this time with downtrending liver enzymes throughout this entire stay thus far. His INR has also been downtrending, which could be indicative of congregational of hepatic function versus treating of an adequate infection contributing to coagulopathy. At this point with the dilated IVC and lack of Budd-Chiari seen on the right upper quadrant ultrasound on March 21, the more likely reason for his significantly elevated LFTs would be congestive hepatopathy and ischemic damage as a result. Some serologies are still pending for autoimmune hepatitis and Damián disease, but at this point, I think these are most likely going to be negative. He is currently responding well to treatment with slowly improving liver synthetic function albeit the total bilirubin is likely behind his transaminases, but this is to be expected. RECOMMENDATIONS: 1. Would continue to trend LFTs and INR daily. 2. Agree with antibiotic administration for treatment of sepsis. 3. Would avoid any potential hepatotoxins during this hospitalization. 4. Pain control per primary team. 5. We will continue to perform serial neurological exams daily as altered mental status could be a harbinger of worsening hepatic function. 6. At this time, we have no new recommendations with improvement of his liver function when treating his other medical comorbidities. We will continue to follow peripherally at this time. Please call with any questions. Job ID: [id number]
[2019-03-24] MEDS: Sodium Bicarbonate Tab 325 MG TAB PO SCH (20:56)
[2019-03-24 22:07] LABS: Activated Protein C Resistance 2.5 ratio (.)
[2019-03-25] MEDS: DOBUTamine 500 mg/250 ml 250 ML IVPB SCH ×2 (04:36→21:10)
[2019-03-25 06:56] LABS: Hemoglobin 13.2 g/dL (14.0-18.0); Mean Corpuscular HGB CONC 31.6 g/dL (32.0-36.0); Mean Corpuscular Hemoglobin 28.7 pg (27.0-31.0); Mean Corpuscular Volume 90.7 fL (78.0-98.0); Mean Platelet Volume 9.8 fL (7.4-10.4); PTT 38.9 SEC (22.9-36.1); Platelet Count 176 thou/uL (130-400); RBC Distribution Width 15.4 % (11.5-14.5); Red Blood Cell (RBC) Count 4.59 mill/uL (4.70-6.10)
[2019-03-25 07:21] LABS: ALT (SGPT) 517 U/L (8-55); AST (SGOT) 145 U/L (5-34); Albumin 2.2 g/dL (3.5-5.0); Alkaline Phosphatase 145 U/L (40-150); Anion Gap 13 mmol/L (10-20); BUN (Urea Nitrogen) 44 mg/dL (8.9-20.6); Bilirubin, Total 9.7 mg/dL (0.2-1.2); Calc. Creatinine Clearance 110 mL/min (70-130); Calcium 7.7 mg/dL (7.8-10.44); Carbon Dioxide 23 mmol/L (22-29); Chloride 90 mmol/L (98-107); Estimated GFR-MDRD 65; Globulin 2.5 g/dL (2.4-3.5); Glucose 100 mg/dL (70-105); Potassium 4.3 mmol/L (3.5-5.1); Protein, Total 4.7 g/dL (6.0-8.3); Sodium 122 mmol/L (136-145)
[2019-03-25 07:26] LABS: HSV 2 - DNA Negative (Negative)
[2019-03-25 08:09] LABS: Band 2 % (5-11); Burr Cells SLIGHT = 2-5 cells (100X) (0-1/hpf); Lymphocytes 7 % (21-51); MDiff Complete? YES; Monocytes 1 % (0-10); Neutrophil 83 % (42-75); Platelet Morphology Comment Appears Adequate; Reactive Lymphocytes 7 % (0-10)
[2019-03-25] MEDS: Carvedilol 3.125 MG TAB PO SCH ×2 (09:22→16:21)
[2019-03-25] MEDS: Sodium Bicarbonate Tab 325 MG TAB PO SCH ×2 (09:22→21:14)
[2019-03-25] MEDS: Furosemide 40 MG/4 ML VIAL SLOW IVP SCH (09:22)
--- NOTE | 2019-03-25 10:11 | PDOC.FM ---
- Subjective Subjective: Patient doing well this AM. He states he got up yesterday morning to take a shower. No significant overnight events. Patient denies N/V, chest pain, or shortness of breath. - Objective MAR Reviewed: Yes Vital Signs & Weight: Vital Signs (12 hours) Temp Pulse Ox 03/25/19 07:48 99 03/25/19 07:06 98.8 F 03/25/19 03:52 98.5 F 03/24/19 23:43 98.9 F 97 Weight Weight 110.813 kg Most Recent Monitor Data Heart Rate from ECG 104 NIBP 119/76 NIBP BP-Mean 90 Respiration from ECG 16 I&O: 03/24/19 03/25/19 03/26/19 06:59 06:59 06:59 Intake Total 1800 2065 Output Total 900 2950 725 Balance 900 -885 -725 Result Diagrams: 03/25/19 06:10 03/25/19 06:10 EKG Reviewed by me: Yes Radiology Reviewed by me: Yes Phys Exam - Physical Examination Constitutional: NAD HEENT: moist MMs Decreased breath sounds right base Tachycardia Gastrointestinal: soft, non-tender, no distention, positive bowel sounds Musculoskeletal: pulses present Edema improved from prior exam Neurological: non-focal, moves all 4 limbs Psychiatric: normal affect, A&O x 3 Skin: no rash, cap refill <2 seconds Dx/Plan (1) Acute heart failure Code(s): I50.9 - HEART FAILURE, UNSPECIFIED Status: Acute (2) Hyperbilirubinemia Code(s): E80.6 - OTHER DISORDERS OF BILIRUBIN METABOLISM Status: Acute (3) Increased ammonia level Code(s): R79.89 - OTHER SPECIFIED ABNORMAL FINDINGS OF BLOOD CHEMISTRY Status : Acute (4) Demand ischemia Code(s): I24.8 - OTHER FORMS OF ACUTE ISCHEMIC HEART DISEASE Status: Acute (5) Lactic acidosis Code(s): E87.2 - ACIDOSIS Status: Acute (6) Acute liver failure Status: Acute (7) Acute renal injury Code(s): N17.9 - ACUTE KIDNEY FAILURE, UNSPECIFIED Status: Acute (8) Pneumonia Code(s): J18.9 - PNEUMONIA, UNSPECIFIED ORGANISM Status: Acute (9) Pulmonary emboli Code(s): I26.99 - OTHER PULMONARY EMBOLISM WITHOUT ACUTE COR PULMONALE Status : Acute - Plan Plan: 29 year old male with no significant PMH presents with a one month history of progressive weakness, shortness of breath, and lower extremity swelling 1. HFrEF (20-25%), new onset - BNP >4000 - Echo shows EF 20-25%, left apical clots measuring up to 1 cm, dilated cardiomyopathy - Cards consulted; appreciate recs - Pulm consulted; appreciate recs - Lasix IV; continue diuresis - Strict I&O's; 2250 mL out yesterday - Daily weights - Urine drug screen positive for methamphetamines - Dilated cardiomyopathy possibly 2/2 alcohol abuse and methamphetamine abuse - Patient started on dobutamine drip per cards and pulm d/t low BP and need for continued diuresis; appears to be helping 2. Bilateral pulmonary emboli - Multiple PE's throughout as noted on CTA chest; CXR mentions possible hemorrhage - No saddle emboli noted - INR 2 this AM; will start on anticoagulation. Patient uninsured, so CM to discuss anticoagulation options. Patient not compliant and may not be a good candidate for warfarin. Will start on lovenox for now. - Bilateral lower extremity dopplers negative - Will get anticoagulation studies to further evaluate; may need to repeat at later date to confirm accuracy d/t degree of liver dysfunction when those labs were drawn 3. Acute liver failure - Initial AST 3500, ALT 2697; downtrending, bilirubin uptrending; however this is expected, continue to monitor - Abdominal ultrasound shows gallbladder sludge without sonographic findings of cholecystitis and trace perihepatic fluid - Hepatic doppler did not show any evidence of portal vein thrombosis - Continue to trend liver enzymes; improving - Likely related to hepatic congestion from heart failure - Studies pending for further evaluation of underlying etiology - Acute hepatitis panels negative - Neurologic eval daily as indicator of worsening liver function 4. Hyperbilirubinemia - Likely 2/2 hepatic congestion from above - Downtrending 5. Acute kidney injury - Improving with diuresis 6. Demand ischemia - Troponin elevated, but stable - Likely 2/2 demand from hypoperfusion 2/2 CHF exacerbation and third spacing - Cards consulted; appreciate recs 7. Lactic acidosis, resolved - Likely 2/2 hypoperfusion 8. Hemoptysis - TB pending - Possibly related to hemorrhage from PE's 9. Hyponatremia - Na 126 --> 121 --> 122 - Continue to trend - Likely 2/2 fluid overload - Urine sodium, urine osm resulted, but serum osm pending (apparently had to be send out) - Added sodium bicarb per pulm 10. Leukocytosis - Initial concern for severe sepsis based on tachycardia and elevated WBC - Patient started on vanc, zosyn, levoquin in Ed - Blood cx obtained after initiation of abx; blood cultures negative to date - UA negative - Procalcitonin 2 - Continue PO levoquin for possible infection leading to sepsis - Trend CBC; WBC trending down 11. Coagulopathy - Picture consistent with DIC - Likely 2/2 liver failure - Heme consulted; appreciate recs - Will initiate anticoagulation since INR 2 12. Elevated ammonia level - 2/2 liver failure - Ammonia wnl now Dispo: Patient now on dobutamine gtt. Will remain in IMCU. Repeat echo pending. Will start on anticoagulation given INR 2. Addendum - Attending - Attending Attestation Date/Time: 03/25/19 1026 I personally evaluated the patient and discussed the management with Dr. Lackey I agree with the History, Examination, Assessment and Plan documented above with any addition or exceptions noted below. Patient improving continued diuresis with addition of dobutamine will start lovenox /vit K antagonist as best financial option for this Patient. Patient states feeling better need to start restorative care and increased activity. MELD score improved. Patient for repeat echocardiogram. Appreciate Specialty recommendations.
--- NOTE | 2019-03-25 10:33 | PRG ---
DATE OF SERVICE: 03/25/2019 SERVICE: Pulmonary Medicine. INTERVAL HISTORY: The patient is actually doing really well from respiratory standpoint. He is breathing more comfortably. He looks less toxic today. He is on dobutamine. He is tolerating this drug quite well. Echocardiogram is currently being performed. His ejection fraction has not improved dramatically. PHYSICAL EXAMINATION: VITAL SIGNS: Afebrile, pulse 100, blood pressure 119/76, respirations 16, and saturation 99% on room air. GENERAL: The patient is awake and alert, in no apparent distress. LUNGS: Decent air entry. Dependent crackles are improving. HEART: Normal rate. Regular. ABDOMEN: Soft, nontender, and nondistended. Bowel sounds are positive. MUSCULOSKELETAL: No cyanosis or clubbing. There is 2+ pitting in the bilateral lower extremities. NEUROLOGIC: Grossly nonfocal. LABORATORY DATA: WBC 18.0, hemoglobin 13.2, and platelets 176,000. Neutrophil count is 83% on top of 2% bands. INR 2.0. Sodium 122, creatinine 1.55 and downtrending. AST, ALT, and alkaline phosphatase are trending towards the normal range. His total bilirubin is finally trending downward. Urinalysis is unremarkable. All immunology and serologies are negative to date. Secondary testing for hypercoagulable state is pending. Blood cultures x2 and urine culture are negative. ASSESSMENT: 1. Acute systolic heart failure. 2. Acute liver failure secondary to hepatic congestion. 3. Acute pulmonary embolism, small. 4. Left ventricular thrombus. 5. Coagulopathy secondary to liver disease. DISCUSSION AND PLAN: I would initiate anticoagulation today. We need to make certain we start an agent that he has access to in the outpatient setting. He can be transitioned to the telemetry unit on the dobutamine drip. Pulmonary will follow intermittently during the hospital stay. Job ID: [id number] [facility]
[2019-03-25] MEDS ORDERED: Enoxaparin Sodium 120 MG/0.8 ML SYRINGE SC SCH (11:15)
--- NOTE | 2019-03-25 11:39 | PDOC.CTH ---
Cardiology Progress Note - Subjective The pt seen and examined. No overnight events. No cardiac complaints. He cont having intermittent SOB with mild exertion. - Objective Vital Signs Temp Pulse Ox 03/25/19 11:04 98.1 F 03/25/19 07:48 99 03/25/19 07:06 98.8 F 03/25/19 03:52 98.5 F 03/24/19 23:43 98.9 F 97 Weight 244 lb 4.8 oz 03/24/19 03/25/19 03/26/19 06:59 06:59 06:59 Intake Total 1800 2065 Output Total 900 2950 1125 Balance 900 -885 -1125 - Physical Examination General/Neuro: alert & oriented x3 Neck: no JVD present Lungs: CTA Heart: RRR Abdomen: soft Extremities: other: (1-2+ non-pitting BLE edema) - Telemetry Telemetry Rhythm: SR - Labs Result Diagrams: 03/25/19 06:10 03/25/19 06:10 Troponin/CKMB CK-MB (CK-2) 5.3 ng/mL (0-6.6) 03/20/19 20:37 Troponin I 0.267 ng/mL (< 0.028) H 03/21/19 03:30 - Assessment/Plan 1. Acute on Chronic Systolic HF with EF 20-25% - Urine output yesterday was almost 3000ml with Dobutamine IV drip; On Lasix IV and Coreg; not on YINA/ARB due to FILEMON 2. Bilat PE and several Thrombi in [place] with "smoke" in LV - Not on OAC due to elevated INR and Acute Liver failure; Will start NOAC when INR < 2; 3. FILEMON - improving 4. Hyponatremia - On fluid restriction 5. Acute Liver failure - improving 6. BLE edema - Lt>Rt; improving MAR reviewed * Echo on 03/21/2019 with EF 20-25%, dilated IVC, 2-3 apical thrombi 1cm with smoke in LV, mild dilated bilat ventricles, mild dilated LA, trace MR, mild-mod TR, mod ERA. * Another Echo today for Re-eval EF and possible cardiac cath if cont EF <35% ( The pt is uninsured and may not be able to afford LifeVest) Pt. seen and eval. by me. No new events or complaints. I reviewed the echo and unfortunately the EF is still 20-25%. He will need a Life_Vest at d/c. If the EF has not improved after 90 days then an AICD will be advised. He probably should try to apply for disability. Chest: decreased in bases. RRR. Continue fluid restriction, dobutamine. Hold coreg while on dobutamine. Review of Systems - Review of Systems Constitutional: reports: no symptoms reported EENTM: reports: no symptoms reported Respiratory: reports: SOB with excertion Cardiac (ROS): reports: no symptoms reported ABD/GI: reports: no symptoms reported : reports: no symptoms reported Musculoskeletal: reports: no symptoms reported
[2019-03-25 14:11] LABS: Smooth Muscle Total ABS 17 Units (0-19)
[2019-03-25] MEDS: Enoxaparin Sodium 120 MG/0.8 ML SYRINGE SC SCH (21:14)
[2019-03-26] MEDS: DOBUTamine 500 mg/250 ml 250 ML IVPB SCH ×2 (04:33→14:06)
[2019-03-26 05:34] LABS: PTT 47.1 SEC (22.9-36.1); Prothrombin Time 22.8 SEC (12.0-14.7)
[2019-03-26 05:56] LABS: ALT (SGPT) 395 U/L (8-55); AST (SGOT) 128 U/L (5-34); Albumin 2.2 g/dL (3.5-5.0); Alkaline Phosphatase 157 U/L (40-150); Anion Gap 9 mmol/L (10-20); BUN (Urea Nitrogen) 36 mg/dL (8.9-20.6); Bilirubin, Total 9.9 mg/dL (0.2-1.2); Calc. Creatinine Clearance 121 mL/min (70-130); Calcium 7.7 mg/dL (7.8-10.44); Carbon Dioxide 28 mmol/L (22-29); Chloride 92 mmol/L (98-107); Estimated GFR-MDRD 71; Globulin 2.4 g/dL (2.4-3.5); Glucose 105 mg/dL (70-105); Potassium 3.6 mmol/L (3.5-5.1); Protein, Total 4.6 g/dL (6.0-8.3); Sodium 125 mmol/L (136-145)
[2019-03-26 06:08] LABS: Band 7 % (5-11); Burr Cells SLIGHT = 2-5 cells (100X) (0-1/hpf); Eosinophils 1 % (0-10); Hemoglobin 13.5 g/dL (14.0-18.0); Lymphocytes 9 % (21-51); MDiff Complete? YES; Mean Corpuscular HGB CONC 31.9 g/dL (32.0-36.0); Mean Corpuscular Hemoglobin 29.2 pg (27.0-31.0); Mean Corpuscular Volume 91.6 fL (78.0-98.0); Mean Platelet Volume 9.5 fL (7.4-10.4); Monocytes 9 % (0-10); Neutrophil 69 % (42-75); Platelet Count 202 thou/uL (130-400); Platelet Morphology Comment Appears Adequate; RBC Distribution Width 15.1 % (11.5-14.5); Reactive Lymphocytes 5 % (0-10); Red Blood Cell (RBC) Count 4.63 mill/uL (4.70-6.10); White Blood Cell (WBC) Count 18.2 thou/uL (4.8-10.8)
--- NOTE | 2019-03-26 06:10 | PDOC.FM ---
- Subjective Subjective: Zane Cruz seen at bedside this morning. States that he is feeling much better than he was prior to admission. States breathing has improved. Denies any acute events overnight. He remains on the dobutamine gtt. He has no complaints. Denies fever, chills, chest pain, dyspnea, n/v. - Objective MAR Reviewed: Yes Vital Signs & Weight: Vital Signs (12 hours) Temp Pulse Resp BP BP Pulse Ox 03/26/19 05:08 93 L 03/26/19 04:00 98.6 F 97 20 116/73 95 03/26/19 00:15 99.1 F 94 20 116/66 03/25/19 19:45 98.7 F 100 20 112/78 100 03/25/19 18:15 98.5 F 99 18 113/72 99 Weight Weight 111.175 kg Most Recent Monitor Data Heart Rate from ECG 98 NIBP 107/67 NIBP BP-Mean 80 Respiration from ECG 21 I&O: 03/24/19 03/25/19 03/26/19 06:59 06:59 06:59 Intake Total 1800 2065 2150 Output Total 900 2950 3725 Balance 024 -896 -6253 Result Diagrams: 03/26/19 04:54 03/26/19 04:54 Phys Exam - Physical Examination Constitutional: NAD HEENT: moist MMs, sclera anicteric Neck: supple, full ROM Respiratory: no wheezing, no rales, no rhonchi, clear to auscultation bilateral Cardiovascular: RRR, no significant murmur Gastrointestinal: soft, non-tender, no distention Musculoskeletal: pulses present 1+ pitting edema Neurological: non-focal, normal sensation, moves all 4 limbs Psychiatric: normal affect, A&O x 3 Skin: no rash, cap refill <2 seconds Dx/Plan (1) Acute heart failure Code(s): I50.9 - HEART FAILURE, UNSPECIFIED Status: Acute (2) Acute liver failure Status: Acute (3) Acute renal injury Code(s): N17.9 - ACUTE KIDNEY FAILURE, UNSPECIFIED Status: Acute (4) Pulmonary emboli Code(s): I26.99 - OTHER PULMONARY EMBOLISM WITHOUT ACUTE COR PULMONALE Status : Acute (5) DIC (disseminated intravascular coagulation) Code(s): D65 - DISSEMINATED INTRAVASCULAR COAGULATION Status: Acute (6) Demand ischemia Code(s): I24.8 - OTHER FORMS OF ACUTE ISCHEMIC HEART DISEASE Status: Acute (7) Hyperbilirubinemia Code(s): E80.6 - OTHER DISORDERS OF BILIRUBIN METABOLISM Status: Acute (8) Sepsis Code(s): A41.9 - SEPSIS, UNSPECIFIED ORGANISM Status: Resolved - Plan Plan: 29 year old male with no significant PMH presents with a one month history of progressive weakness, shortness of breath, and lower extremity swelling 1. HFrEF (20-25%), new onset - BNP >4000 - Echo shows EF 20-25%, left apical clots measuring up to 1 cm, dilated cardiomyopathy - Repeat Echo showed no LV thrombus - Cards consulted; appreciate recs - Pulm consulted; appreciate recs - Lasix IV; continue diuresis - Strict I&O's; I/O: Net -3 L - Daily weights - Urine drug screen positive for methamphetamines - Dilated cardiomyopathy possibly 2/2 alcohol abuse and methamphetamine abuse - Patient started on dobutamine drip per cards and pulm d/t low BP and need for continued diuresis - Transferred to Tele unit overnight 2. Bilateral pulmonary emboli - Multiple PE's throughout as noted on CTA chest; CXR mentions possible hemorrhage - No saddle emboli noted, Bilateral lower extremity dopplers negative - INR 2; Th lovenox started on 03/25/19 - Patient uninsured, so CM to discuss anticoagulation options. Patient not compliant and may not be a good candidate for warfarin. May need to start warfarin today. - Will get anticoagulation studies to further evaluate; may need to repeat at later date to confirm accuracy d/t degree of liver dysfunction when those labs were drawn 3. Acute liver failure - Initial AST 3500, ALT 2697; downtrending, bilirubin uptrending; however this is expected, continue to monitor - Abdominal ultrasound shows gallbladder sludge without sonographic findings of cholecystitis and trace perihepatic fluid - Hepatic doppler did not show any evidence of portal vein thrombosis - Continue to trend liver enzymes; improving - Likely related to hepatic congestion from heart failure - Studies pending for further evaluation of underlying etiology - Acute hepatitis panels negative - Neurologic eval daily as indicator of worsening liver function 4. Hyperbilirubinemia - Likely 2/2 hepatic congestion from above - Downtrending 5. Acute kidney injury - Improving with diuresis 6. Demand ischemia - Troponin elevated, but stable - Likely 2/2 demand from hypoperfusion 2/2 CHF exacerbation and third spacing - Cards consulted; appreciate recs 7. Lactic acidosis, resolved - Likely 2/2 hypoperfusion 8. Hemoptysis - TB pending - Possibly related to hemorrhage from PE's 9. Hyponatremia - Na 126 --> 121 --> 122 --> 125 - Continue to trend - Likely 2/2 fluid overload 10. Leukocytosis - Initial concern for severe sepsis based on tachycardia and elevated WBC - Patient started on vanc, zosyn, levoquin in Ed - Blood cx obtained after initiation of abx; blood cultures negative to date - UA negative - Procalcitonin 2 - Continue PO levoquin for possible infection leading to sepsis - Trend CBC; WBC trending down 11. Coagulopathy - Picture consistent with DIC - Likely 2/2 liver failure - Heme consulted; appreciate recs - Will initiate anticoagulation since INR 2 12. Elevated ammonia level - 2/2 liver failure - Ammonia wnl now Dispo: Patient continues on dobutamine gtt. Transferred to Tele overnight. Will continue on th lovenox given INR 2, likely transition to warfarin. Addendum - Attending - Attending Attestation Date/Time: 03/26/19 2685 I personally evaluated the patient and discussed the management with Dr. Mcbride I agree with the History, Examination, Assessment and Plan documented above with any addition or exceptions noted below. Patient transferred to floor continued low dose dobutamine drip. He is continuing to improve need to advance activity continue lovenox if case investigator can obtain DOAC for this patient agree this would be a more favorable option than coumadin.
[2019-03-26] MEDS: Carvedilol 3.125 MG TAB PO SCH (08:57)
[2019-03-26] MEDS: Sodium Bicarbonate Tab 325 MG TAB PO SCH ×2 (08:57→21:23)
[2019-03-26] MEDS: Furosemide 40 MG/4 ML VIAL SLOW IVP SCH (10:31)
[2019-03-26] MEDS: Enoxaparin Sodium 120 MG/0.8 ML SYRINGE SC SCH ×2 (10:32→21:22)
[2019-03-26] MEDS: Digoxin 0.5 MG/2 ML AMP SLOW IVP SCH ×2 (10:49→12:54)
[2019-03-26] MEDS: hydrALAZINE 25 MG TAB PO SCH ×2 (11:25→15:47)
[2019-03-26] MEDS: Digoxin 0.25 MG TAB PO SCH (15:15)
[2019-03-26] MEDS: hydrALAZINE 10 MG TAB PO SCH ×2 (15:32→21:23)
--- NOTE | 2019-03-26 16:56 | PRG ---
DATE OF SERVICE: 03/26/2019 SERVICE: Pulmonary Medicine. INTERVAL HISTORY: The patient is breathing fine. He remains on room air. Denies any current fevers or chills. He had an episode of vomiting last night. He had a very small amount of food that he had eaten. He was able to tolerate both breakfast and lunch today without significant difficulties. He is coughing, but not bringing up any phlegm. PHYSICAL EXAMINATION: VITAL SIGNS: Afebrile. Pulse 88, blood pressure 105/93, respirations 18, saturation 94% on room air. GENERAL: The patient is awake and alert, in no apparent distress. LUNGS: Decent air entry. There is no prolonged expiratory phase. Dependent crackles are present. HEART: Normal rate, regular. ABDOMEN: Soft, nontender, nondistended. Bowel sounds are positive. MUSCULOSKELETAL: No cyanosis or clubbing. There is 2+ pitting in the bilateral lower extremities. NEUROLOGIC: Grossly nonfocal. LABORATORY DATA: WBC 18.2, hemoglobin 13.5, and platelets 202,000. INR 2.0. Creatinine downtrending to 1.42. AST, and ALT continued to trend towards improvement. Total bilirubin is stable. Sodium is up trending to 125. Procalcitonin 0.63 and downtrending. All serologies, and immunology studies are negative to date. Blood cultures x2 and urine culture are negative. IMAGING DATA: Repeat echocardiogram shows a persistently reduced ejection fraction of 20% to 25%. Please note this was on dobutamine. ASSESSMENT: 1. Acute systolic heart failure. 2. Acute liver failure secondary to hepatic congestion. 3. Acute pulmonary embolism, small. 4. Left ventricular thrombus. 5. Coagulopathy secondary to liver disease. DISCUSSION AND PLAN: At this point, the patient has no further requirements for inpatient Pulmonary/Critical Care opinion. We will continue to diurese him until he returns to euvolemia. He is clearing his kidney injury. The INR is not going to improve as dramatically now that he is on direct oral anticoagulant. If the patient has deterioration in function, please give me a phone call. At this point, I will sign off. Job ID: [id number]
[2019-03-27] MEDS: DOBUTamine 500 mg/250 ml 250 ML IVPB SCH ×2 (04:31→21:23)
[2019-03-27 06:12] LABS: QuantiFERON-TB Gold Plus Indeterminate (Negative)
--- NOTE | 2019-03-27 07:14 | PDOC.FM ---
- Subjective Subjective: Zane Cruz seen at bedside this morning. He has no complaints and there were no acute events overnight. Patient's nurse states that he was complaining of pain , location unspecified, and difficulty sleeping overnight. He denies any fever , chills, dyspnea, chest pain, palpitations, n/v. He remains on dobutamine gtt. - Objective MAR Reviewed: Yes Vital Signs & Weight: Vital Signs (12 hours) Temp Pulse Resp BP BP Pulse Ox 03/27/19 03:44 98.5 F 99 19 118/67 96 03/27/19 00:08 98 18 118/63 03/26/19 21:23 96 117/64 03/26/19 20:15 97 03/26/19 19:32 98.8 F 96 21 H 111/62 97 Weight Weight 112.128 kg Most Recent Monitor Data Heart Rate from ECG 98 NIBP 107/67 NIBP BP-Mean 80 Respiration from ECG 21 I&O: 03/26/19 03/27/19 03/28/19 06:59 06:59 06:59 Intake Total 3085 3276 Output Total 4775 1860 Balance -1690 1416 Result Diagrams: 03/27/19 06:22 03/27/19 06:22 Phys Exam - Physical Examination Constitutional: NAD HEENT: moist MMs, sclera anicteric Neck: supple, full ROM Respiratory: no wheezing, no rales, no rhonchi, clear to auscultation bilateral Cardiovascular: RRR, no significant murmur Gastrointestinal: soft, non-tender, no distention Musculoskeletal: edema present 2+ pittind edema Neurological: non-focal, normal sensation, moves all 4 limbs Psychiatric: normal affect, A&O x 3 Skin: no rash, normal turgor Dx/Plan (1) Acute heart failure Code(s): I50.9 - HEART FAILURE, UNSPECIFIED Status: Acute (2) Acute liver failure Status: Acute (3) Acute renal injury Code(s): N17.9 - ACUTE KIDNEY FAILURE, UNSPECIFIED Status: Acute (4) Pulmonary emboli Code(s): I26.99 - OTHER PULMONARY EMBOLISM WITHOUT ACUTE COR PULMONALE Status : Acute (5) DIC (disseminated intravascular coagulation) Code(s): D65 - DISSEMINATED INTRAVASCULAR COAGULATION Status: Acute (6) Demand ischemia Code(s): I24.8 - OTHER FORMS OF ACUTE ISCHEMIC HEART DISEASE Status: Acute (7) Hyperbilirubinemia Code(s): E80.6 - OTHER DISORDERS OF BILIRUBIN METABOLISM Status: Acute (8) Sepsis Code(s): A41.9 - SEPSIS, UNSPECIFIED ORGANISM Status: Resolved - Plan Plan: 29 year old male with no significant PMH presents with a one month history of progressive weakness, shortness of breath, and lower extremity swelling 1. HFrEF (20-25%), new onset - BNP >4000 - Echo shows EF 20-25%, left apical clots measuring up to 1 cm, dilated cardiomyopathy - Repeat Echo showed no LV thrombus - Cards consulted; appreciate recs - Pulm consulted; appreciate recs - Lasix IV; continue diuresis - Strict I&O's; I/O: Net -3 L - Daily weights - Urine drug screen positive for methamphetamines - Dilated cardiomyopathy possibly 2/2 alcohol abuse and methamphetamine abuse - Patient started on dobutamine drip per cards and pulm d/t low BP and need for continued diuresis - Remains on dobutamine gtt today 2. Bilateral pulmonary emboli - Multiple PE's throughout as noted on CTA chest; CXR mentions possible hemorrhage - No saddle emboli noted, Bilateral lower extremity dopplers negative - INR 2; Th lovenox started on 03/25/19 - Patient uninsured, so CM to discuss anticoagulation options. Patient not compliant and may not be a good candidate for warfarin. May need to start warfarin today. - Will get anticoagulation studies to further evaluate; may need to repeat at later date to confirm accuracy d/t degree of liver dysfunction when those labs were drawn - Bridging to coumadin today 3. Acute liver failure - Initial AST 3500, ALT 2697; downtrending, bilirubin uptrending; however this is expected, continue to monitor - Abdominal ultrasound shows gallbladder sludge without sonographic findings of cholecystitis and trace perihepatic fluid - Hepatic doppler did not show any evidence of portal vein thrombosis - Continue to trend liver enzymes; improving - Likely related to hepatic congestion from heart failure - Studies pending for further evaluation of underlying etiology - Acute hepatitis panels negative 4. Hyperbilirubinemia - Likely 2/2 hepatic congestion from above - Downtrending 5. Acute kidney injury - Improving with diuresis 6. Demand ischemia - Troponin elevated, but stable - Likely 2/2 demand from hypoperfusion 2/2 CHF exacerbation and third spacing - Cards consulted; appreciate recs 7. Lactic acidosis, resolved - Likely 2/2 hypoperfusion 8. Hemoptysis - TB pending - Possibly related to hemorrhage from PE's 9. Hyponatremia - Na 126 --> 121 --> 122 --> 125 - Continue to trend - Likely 2/2 fluid overload 10. Leukocytosis - Initial concern for severe sepsis based on tachycardia and elevated WBC - Patient started on vanc, zosyn, levoquin in Ed - Blood cx obtained after initiation of abx; blood cultures negative to date - UA negative - Procalcitonin 2 - Continue PO levoquin for possible infection leading to sepsis - Trend CBC; WBC trending down 11. Coagulopathy - Picture consistent with DIC - Likely 2/2 liver failure - Heme consulted; appreciate recs - Will initiate anticoagulation since INR 2 12. Elevated ammonia level - 2/2 liver failure - Ammonia wnl now Addendum - Attending - Attending Attestation Date/Time: 03/27/19 1253 I personally evaluated the patient and discussed the management with Dr. Mcbride I agree with the History, Examination, Assessment and Plan documented above with any addition or exceptions noted below. HFeEF most likely etiology ETOH, substance abuse he remains on dobutamine low dose drip rec since albumin low consider salt poor albumin followed by loop diuretic to improve third spaced fluid recovery.Strict fluid and salt restriction may need to tighten this up even more. Consider ACEI(with GFR >30) increased BB as tolerated and aldactone given severity of Low EF. He may need ACD consideration and appreciate recommendation for applying for disability as he surely would be candidate with his degree of HF rec consult CM in this regard. LFTs and RFT improved PE converting to Vit K agonist unless opportunity to obtain DOAC reasonably.
[2019-03-27 07:29] LABS: #Eosinphils 0.1 thou/uL (0.0-0.7); #Lymphocytes 1.7 thou/uL (1.20-3.40); #Monocytes 1.9 thou/uL (0.11-0.59); #Neutrophils 13.8 thou/uL (1.40-6.50); %Basophils 0.1 % (0.0-1.0); %Eosinophils 0.7 % (0.0-10.0); %Lymphocytes 9.5 % (21.0-51.0); %Monocytes 10.8 % (0.0-10.0); %Neutrophils 78.8 % (42.0-75.0); Hemoglobin 14.2 g/dL (14.0-18.0); Mean Corpuscular HGB CONC 30.9 g/dL (32.0-36.0); Mean Corpuscular Hemoglobin 28.6 pg (27.0-31.0); Mean Corpuscular Volume 92.6 fL (78.0-98.0); Mean Platelet Volume 9.1 fL (7.4-10.4); Platelet Count 206 thou/uL (130-400); RBC Distribution Width 15.8 % (11.5-14.5); Red Blood Cell (RBC) Count 4.97 mill/uL (4.70-6.10); White Blood Cell (WBC) Count 17.6 thou/uL (4.8-10.8)
[2019-03-27 07:41] LABS: ALT (SGPT) 274 U/L (8-55); AST (SGOT) 97 U/L (5-34); Alkaline Phosphatase 198 U/L (40-150); Anion Gap 11 mmol/L (10-20); BUN (Urea Nitrogen) 29 mg/dL (8.9-20.6); Bilirubin, Total 8.6 mg/dL (0.2-1.2); Calc. Creatinine Clearance 121 mL/min (70-130); Calcium 7.5 mg/dL (7.8-10.44); Carbon Dioxide 27 mmol/L (22-29); Chloride 91 mmol/L (98-107); Estimated GFR-MDRD 71; Globulin 2.4 g/dL (2.4-3.5); Glucose 83 mg/dL (70-105); Potassium 3.9 mmol/L (3.5-5.1); Protein, Total 4.4 g/dL (6.0-8.3); Sodium 125 mmol/L (136-145)
[2019-03-27] MEDS: Furosemide 40 MG/4 ML VIAL SLOW IVP SCH ×2 (08:18→14:52)
[2019-03-27] MEDS: Digoxin 0.25 MG TAB PO SCH ×2 (08:18→14:51)
[2019-03-27] MEDS: hydrALAZINE 10 MG TAB PO SCH ×3 (08:18→21:15)
[2019-03-27] MEDS: Sodium Bicarbonate Tab 325 MG TAB PO SCH ×2 (08:19→21:16)
[2019-03-27] MEDS ORDERED: Warfarin Sodium 5 MG TAB PO SCH (09:00)
[2019-03-27] MEDS: Isosorbide Dinitrate 5 MG TAB PO SCH ×3 (09:00→21:15)
[2019-03-27 09:33] LABS: INR-International Normal Ratio 1.7; Prothrombin Time 20.2 SEC (12.0-14.7)
[2019-03-27 09:34] LABS: PTT 49.7 SEC (22.9-36.1)
[2019-03-27] MEDS ORDERED: Albumin 25% 25 GM/100 ML BOT IVPB SCH (12:00)
[2019-03-27] MEDS: Benzonatate 100 MG CAP PO PRN (14:51)
[2019-03-28] MEDS: Furosemide 40 MG/4 ML VIAL SLOW IVP SCH ×2 (06:01→15:31)
[2019-03-28 07:03] LABS: #Eosinphils 0.1 thou/uL (0.0-0.7); #Lymphocytes 1.7 thou/uL (1.20-3.40); #Monocytes 1.9 thou/uL (0.11-0.59); #Neutrophils 11.1 thou/uL (1.40-6.50); %Basophils 0.2 % (0.0-1.0); %Eosinophils 0.7 % (0.0-10.0); %Lymphocytes 11.2 % (21.0-51.0); %Monocytes 12.5 % (0.0-10.0); %Neutrophils 75.3 % (42.0-75.0); Mean Corpuscular HGB CONC 30.9 g/dL (32.0-36.0); Mean Corpuscular Hemoglobin 28.8 pg (27.0-31.0); Platelet Count 211 thou/uL (130-400); RBC Distribution Width 16.3 % (11.5-14.5); Red Blood Cell (RBC) Count 5.21 mill/uL (4.70-6.10); White Blood Cell (WBC) Count 14.8 thou/uL (4.8-10.8)
[2019-03-28 07:06] LABS: INR-International Normal Ratio 1.6; Prothrombin Time 18.7 SEC (12.0-14.7)
[2019-03-28 07:07] LABS: PTT 41.7 SEC (22.9-36.1)
[2019-03-28 07:24] LABS: ALT (SGPT) 220 U/L (8-55); AST (SGOT) 94 U/L (5-34); Albumin 2.3 g/dL (3.5-5.0); Alkaline Phosphatase 173 U/L (40-150); Anion Gap 12 mmol/L (10-20); BUN (Urea Nitrogen) 25 mg/dL (8.9-20.6); Bilirubin, Total 9.4 mg/dL (0.2-1.2); Calc. Creatinine Clearance 130 mL/min (70-130); Calcium 8.1 mg/dL (7.8-10.44); Carbon Dioxide 27 mmol/L (22-29); Chloride 92 mmol/L (98-107); Estimated GFR-MDRD 78; Globulin 2.8 g/dL (2.4-3.5); Glucose 73 mg/dL (70-105); Potassium 3.9 mmol/L (3.5-5.1); Protein, Total 5.1 g/dL (6.0-8.3); Sodium 127 mmol/L (136-145)
[2019-03-28] MEDS: Digoxin 0.25 MG TAB PO SCH ×2 (08:32→13:56)
[2019-03-28] MEDS: Sodium Bicarbonate Tab 325 MG TAB PO SCH ×2 (08:33→21:22)
[2019-03-28] MEDS: Isosorbide Dinitrate 5 MG TAB PO SCH ×3 (08:33→21:22)
[2019-03-28] MEDS: hydrALAZINE 10 MG TAB PO SCH ×3 (08:33→21:23)
--- NOTE | 2019-03-28 08:34 | PDOC.CTH ---
Cardiology Progress Note - Subjective The pt seen and examined. No 0vernight events. No cardiac complaints. He voiced understanding and agreed to stay after long discussion of his dx and his tx plan. - Objective Vital Signs Temp Pulse Resp BP BP Pulse Ox 03/28/19 07:26 97.6 F 95 20 114/75 95 03/28/19 04:00 98.5 F 19 120/64 94 L 03/28/19 00:13 100 20 104/65 03/27/19 21:15 99 109/68 Weight 242 lb 12.8 oz 03/27/19 03/28/19 03/29/19 06:59 06:59 06:59 Intake Total 3276 1783 Output Total 1860 4125 Balance 1416 -2342 - Physical Examination General/Neuro: alert & oriented x3 Neck: no JVD present Lungs: CTA Heart: RRR Abdomen: soft Extremities: other: (2+ pitting BLE edema) - Telemetry Telemetry Rhythm: SR - Labs Result Diagrams: 03/28/19 06:44 03/28/19 06:44 Troponin/CKMB CK-MB (CK-2) 5.3 ng/mL (0-6.6) 03/20/19 20:37 Troponin I 0.267 ng/mL (< 0.028) H 03/21/19 03:30 - Assessment/Plan 1. Acute on Chronic Systolic HF with EF 20-25% on 03/25/19 - Urine output yesterday was almost 4000ml with Dobutamine and albumin IV drip; Coreg is off for now; On IV Lasix 40mg which was increased from QD to BID; not on YINA/ARB due to FILEMON; Hold coreg while on dobutamine 2. Bilat PE and several Thrombi in [place] with "smoke" in LV -. The trhombus was not evident on the last echo but due to the severe decrease in LV function and PE's, he will need anticoagulation. Coumadin was started from yesterday. We will need to follow th INR and renal function closely. 3. FILEMON - improving 4. Hyponatremia - On fluid restriction 5. Acute Liver failure - improving 6. BLE edema - Lt>Rt; improving. He continues to have significant edema. I will add Zaroxolyn.He may need further albumin or increase dobutamine to 5microgr/kg/ min. ALEXA reviewed * Echo on 03/21/2019 with EF 20-25%, dilated IVC, 2-3 apical thrombi 1cm with smoke in LV, mild dilated bilat ventricles, mild dilated LA, trace MR, mild-mod TR, mod ERA. * Another Echo on 03/25/2019 showed EF 20-25%. The pt will have cardiac cath as definitive evaluation of possible CAD. * He will need a Life_Vest at d/c. If the EF has not improved after 90 days then an AICD will be advised. (Unfortunately, The pt is uninsured and may not be able to afford LifeVest). He will also need assistance with the medications. Pt. seen and eval. by me. I agree with the A/P by the [employer]. He is still vol. overloaded.Chest clear RRR. 2-3+ edema. Plan for cath to rule out CAD and eval. EF by another modality. Discussed procedure and riskd to include bleeding, infection,NM,CVA,renal insuff., . Review of Systems - Review of Systems Constitutional: reports: no symptoms reported EENTM: reports: no symptoms reported Respiratory: reports: no symptoms reported Cardiac (ROS): reports: no symptoms reported ABD/GI: reports: no symptoms reported : reports: no symptoms reported Musculoskeletal: reports: no symptoms reported
--- NOTE | 2019-03-28 09:36 | PDOC.FM ---
- Subjective Subjective: Patient doing well this AM. No significant overnight events. Denies chest pain, shortness of breath, N/V. Swelling has improved. Patient got up and walked 400 ft yesterday with PT. - Objective MAR Reviewed: Yes Vital Signs & Weight: Vital Signs (12 hours) Temp Pulse Resp BP Pulse Ox 03/28/19 08:32 97 03/28/19 07:26 97.6 F 95 20 114/75 95 03/28/19 04:00 98.5 F 19 120/64 94 L 03/28/19 00:13 100 20 104/65 Weight Weight 110.132 kg Most Recent Monitor Data Heart Rate from ECG 98 NIBP 107/67 NIBP BP-Mean 80 Respiration from ECG 21 I&O: 03/27/19 03/28/19 03/29/19 06:59 06:59 06:59 Intake Total 3276 1783 Output Total 1860 4125 Balance 1416 -2342 Result Diagrams: 03/29/19 06:01 03/29/19 04:26 EKG Reviewed by me: Yes Radiology Reviewed by me: Yes Phys Exam - Physical Examination Constitutional: NAD Appears depressed HEENT: moist MMs Respiratory: clear to auscultation bilateral Cardiovascular: RRR Gastrointestinal: soft, no distention 3+ pitting edema of bilateral lower extremities Neurological: non-focal, moves all 4 limbs Psychiatric: A&O x 3 Deviation from normal: Depressed affect Skin: no rash, cap refill <2 seconds Dx/Plan (1) Acute heart failure Code(s): I50.9 - HEART FAILURE, UNSPECIFIED Status: Acute (2) Hyperbilirubinemia Code(s): E80.6 - OTHER DISORDERS OF BILIRUBIN METABOLISM Status: Acute (3) Increased ammonia level Code(s): R79.89 - OTHER SPECIFIED ABNORMAL FINDINGS OF BLOOD CHEMISTRY Status : Acute (4) Demand ischemia Code(s): I24.8 - OTHER FORMS OF ACUTE ISCHEMIC HEART DISEASE Status: Acute (5) Lactic acidosis Code(s): E87.2 - ACIDOSIS Status: Acute (6) Acute liver failure Status: Acute (7) Acute renal injury Code(s): N17.9 - ACUTE KIDNEY FAILURE, UNSPECIFIED Status: Acute (8) Pneumonia Code(s): J18.9 - PNEUMONIA, UNSPECIFIED ORGANISM Status: Acute (9) Pulmonary emboli Code(s): I26.99 - OTHER PULMONARY EMBOLISM WITHOUT ACUTE COR PULMONALE Status : Acute - Plan Plan: 29 year old male with no significant PMH presents with a one month history of progressive weakness, shortness of breath, and lower extremity swelling 1. HFrEF (20-25%), new onset - BNP >4000, downtrended to 2000's - Echo shows EF 20-25%, left apical clots measuring up to 1 cm, dilated cardiomyopathy; repeat echo showed EF 20-25% but no evidence of clot - Repeat Echo showed no LV thrombus - Cards consulted; appreciate recs - Pulm consulted; appreciate recs - Lasix IV; continue diuresis - Strict I&O's; I/O: Net -3 L - Daily weights - Urine drug screen positive for methamphetamines - Dilated cardiomyopathy possibly 2/2 alcohol abuse and methamphetamine abuse; plan for stress test tomorrow AM per Cardiology - Patient started on dobutamine drip per cards and pulm d/t low BP and need for continued diuresis; plan to wean patient off of drip since BP's are back to normal. May consider oral inotropic agent. Will touch base with Cardiology. 2. Bilateral pulmonary emboli - Multiple PE's throughout as noted on CTA chest; CXR mentions possible hemorrhage - No saddle emboli noted, Bilateral lower extremity dopplers negative - INR subtherapeutic. Pt was started on Warfarin yesterday. Pt uninsured and is not good candidate for NOAC. Anticipate liver function will continue to improve as HF is treated. Warfarin dc'd per Cardiology yesterday, and no additional anticoagulation was started. INR this AM 1.6. Pt in need of anticoagulation at this point in time. Will touch base with Dr. Romero. - Will get anticoagulation studies to further evaluate; may need to repeat at later date to confirm accuracy d/t degree of liver dysfunction when those labs were drawn 3. Acute liver failure - Initial AST 3500, ALT 2697; downtrending - Abdominal ultrasound shows gallbladder sludge without sonographic findings of cholecystitis and trace perihepatic fluid - Hepatic doppler did not show any evidence of portal vein thrombosis - Continue to trend liver enzymes; improving - Likely related to hepatic congestion from heart failure - Studies pending for further evaluation of underlying etiology; appears to be 2 /2 hepatic congestion 2/2 heart failure at this point in time - Acute hepatitis panels negative 4. Hyperbilirubinemia - Likely 2/2 hepatic congestion from above 5. Acute kidney injury - Improving with diuresis 6. Demand ischemia - Troponin elevated, but stable - Likely 2/2 demand from hypoperfusion 2/2 CHF exacerbation and third spacing - Cards consulted; appreciate recs 7. Lactic acidosis, resolved - Likely 2/2 hypoperfusion 8. Hemoptysis - TB with indeterminate A. - Possibly related to hemorrhage from PE's 9. Hyponatremia - Na 126 --> 121 --> 122 --> 125 --> 127 - Continue to trend - Likely 2/2 fluid overload 10. Leukocytosis - Initial concern for severe sepsis based on tachycardia and elevated WBC - Patient started on vanc, zosyn, levoquin in Ed - Blood cx obtained after initiation of abx; blood cultures negative to date - UA negative - Procalcitonin 2 --> downtrending - Continue PO levoquin for possible infection leading to sepsis (d/c after 7 days) - Trend CBC; WBC trending down 11. Coagulopathy - Picture consistent with DIC - Likely 2/2 liver failure - Heme consulted; appreciate recs - Warfarin started when INR 2 12. Elevated ammonia level - 2/2 liver failure - Ammonia wnl now Dispo: Patient to be titrated off of dobutamine drip at discretion of Cardiology. Plan for stress test in AM per Cardiology. Continue titrating anticoagulation to therapeutic value. Addendum - Attending - Attending Attestation Date/Time: 03/29/19 2361 I personally evaluated the patient and discussed the management with Dr. Lackey on 03/28/2019 I agree with the History, Examination, Assessment and Plan documented above with any addition or exceptions noted below - Patient denies any complaints. Denies any CP/SOB. Afebrile VSS. A/P: 1) HFrEF- currently on dobutamine. Appreciate cardiology recommendations/assistance. Plan for cath tomorrow. 2) Shock liver- improving. 3) PE - continue warfarin.
[2019-03-28] MEDS ORDERED: Metolazone 5 MG TAB PO SCH (13:00)
[2019-03-28 13:11] LABS: Epstein Barr Virus PCR Negative (Negative)
[2019-03-28] MEDS ORDERED: DOBUTamine 500 mg/250 ml 250 ML IVPB SCH (13:21)
[2019-03-28] MEDS ORDERED: Warfarin Sodium 5 MG TAB PO SCH (17:00)
[2019-03-28 17:08] LABS: VZV Real Time PCR Negative (Negative)
[2019-03-28] MEDS: Benzonatate 100 MG CAP PO PRN (18:36)
[2019-03-29] MEDS: Sodium Bicarbonate Tab 325 MG TAB PO SCH ×2 (05:11→20:35)
[2019-03-29] MEDS: Furosemide 40 MG/4 ML VIAL SLOW IVP SCH ×2 (05:11→14:41)
[2019-03-29] MEDS: Isosorbide Dinitrate 5 MG TAB PO SCH ×3 (05:11→20:35)
[2019-03-29] MEDS: Digoxin 0.25 MG TAB PO SCH (05:12)
[2019-03-29] MEDS: hydrALAZINE 10 MG TAB PO SCH ×3 (05:12→20:35)
[2019-03-29 05:14] LABS: INR-International Normal Ratio 1.5; PTT 38.6 SEC (22.9-36.1); Prothrombin Time 18.6 SEC (12.0-14.7)
[2019-03-29 05:34] LABS: ALT (SGPT) 170 U/L (8-55); AST (SGOT) 81 U/L (5-34); Albumin 2.1 g/dL (3.5-5.0); Alkaline Phosphatase 152 U/L (40-150); Anion Gap 8 mmol/L (10-20); BUN (Urea Nitrogen) 24 mg/dL (8.9-20.6); Bilirubin, Total 6.7 mg/dL (0.2-1.2); Calc. Creatinine Clearance 118 mL/min (70-130); Calcium 7.9 mg/dL (7.8-10.44); Carbon Dioxide 32 mmol/L (22-29); Chloride 90 mmol/L (98-107); Estimated GFR-MDRD 70; Globulin 2.6 g/dL (2.4-3.5); Glucose 76 mg/dL (70-105); Potassium 3.4 mmol/L (3.5-5.1); Protein, Total 4.7 g/dL (6.0-8.3); Sodium 127 mmol/L (136-145)
[2019-03-29 06:43] LABS: #Eosinphils 0.1 thou/uL (0.0-0.7); #Lymphocytes 2.3 thou/uL (1.20-3.40); #Monocytes 1.7 thou/uL (0.11-0.59); #Neutrophils 10.4 thou/uL (1.40-6.50); %Basophils 0.3 % (0.0-1.0); %Eosinophils 0.7 % (0.0-10.0); %Lymphocytes 15.8 % (21.0-51.0); %Monocytes 11.8 % (0.0-10.0); %Neutrophils 71.4 % (42.0-75.0); Mean Corpuscular HGB CONC 29.9 g/dL (32.0-36.0); Mean Corpuscular Hemoglobin 27.3 pg (27.0-31.0); Mean Corpuscular Volume 91.2 fL (78.0-98.0); Mean Platelet Volume 8.7 fL (7.4-10.4); Platelet Count 237 thou/uL (130-400); RBC Distribution Width 16.5 % (11.5-14.5); Red Blood Cell (RBC) Count 5.49 mill/uL (4.70-6.10); White Blood Cell (WBC) Count 14.5 thou/uL (4.8-10.8)
[2019-03-29] MEDS ORDERED: Heparin 0 ML ONE (06:46)
[2019-03-29] MEDS ORDERED: Nitroglycerin 100MG/250ML BOT 0 ML ONE (06:46)
[2019-03-29] MEDS ORDERED: Verapamil 5 MG/2 ML VIAL ONE ×2 (06:46→08:42)
[2019-03-29] MEDS ORDERED: Heparin 10,000 UNITS/1 ML VIAL ONE ×2 (06:46→08:42)
[2019-03-29] MEDS ORDERED: Nitroglycerin 100MG/250ML BOT 250 ML ONE (08:42)
--- NOTE | 2019-03-29 09:14 | PDOC.FM ---
- Subjective Subjective: Patient states he is doing well this AM. No significant overnight events. Patient's mother was present in room today. She was very supportive. Patient denies chest pain, shortness of breath, N/V. Patient going for cardiac cath this AM to further evaluate HF. - Objective MAR Reviewed: Yes Vital Signs & Weight: Vital Signs (12 hours) Temp Pulse Resp BP Pulse Ox 03/29/19 07:51 98.1 F 95 16 109/67 97 03/29/19 03:50 98.6 F 98 16 103/52 L 95 03/28/19 21:23 95 03/28/19 21:20 98.9 F 103 H 16 122/69 96 Weight Weight 105.715 kg Most Recent Monitor Data Heart Rate from ECG 98 NIBP 107/67 NIBP BP-Mean 80 Respiration from ECG 21 I&O: 03/28/19 03/29/19 03/30/19 06:59 06:59 06:59 Intake Total 1783 1592.6 Output Total 4125 4575 Balance -2342 -2982.4 Result Diagrams: 03/29/19 06:01 03/29/19 04:26 EKG Reviewed by me: Yes Radiology Reviewed by me: Yes Phys Exam - Physical Examination Constitutional: NAD HEENT: moist MMs Respiratory: no wheezing, no rhonchi Cardiovascular: RRR 2/6 systolic murmur Gastrointestinal: soft, no distention Musculoskeletal: pulses present 2+ pitting edema bilateral lower extremities Neurological: non-focal, moves all 4 limbs Psychiatric: A&O x 3 Deviation from normal: depressed affect Skin: no rash, cap refill <2 seconds Dx/Plan (1) Acute heart failure Code(s): I50.9 - HEART FAILURE, UNSPECIFIED Status: Acute (2) Hyperbilirubinemia Code(s): E80.6 - OTHER DISORDERS OF BILIRUBIN METABOLISM Status: Acute (3) Increased ammonia level Code(s): R79.89 - OTHER SPECIFIED ABNORMAL FINDINGS OF BLOOD CHEMISTRY Status : Acute (4) Demand ischemia Code(s): I24.8 - OTHER FORMS OF ACUTE ISCHEMIC HEART DISEASE Status: Acute (5) Lactic acidosis Code(s): E87.2 - ACIDOSIS Status: Acute (6) Acute liver failure Status: Acute (7) Acute renal injury Code(s): N17.9 - ACUTE KIDNEY FAILURE, UNSPECIFIED Status: Acute (8) Pneumonia Code(s): J18.9 - PNEUMONIA, UNSPECIFIED ORGANISM Status: Acute (9) Pulmonary emboli Code(s): I26.99 - OTHER PULMONARY EMBOLISM WITHOUT ACUTE COR PULMONALE Status : Acute - Plan Plan: 29 year old male with no significant PMH presents with a one month history of progressive weakness, shortness of breath, and lower extremity swelling 1. HFrEF (20-25%), new onset - Cardiac cath today per Dr. Romero - Continue diuresis - Patient being titrated off of dobutamine drip; consider oral inotropic agents if necessary. Consider holding hydralazine and imdur while diuresing to avoid continued drop in BP - Cards consulted; appreciate recs - On digoxin, hydralazine, and imdur per cards - Carvedilol held d/t BP - YINA-I not started d/t kidney function - Lifevest discussed with patient on several occasions; he likely will not be able to afford 2. Bilateral pulmonary emboli - Transitioned to warfarin as patient cannot afford NOAC and is uninsured; as liver failure 2/2 hepatic congestion d/t overload, anticipate continued improvement in liver function - INR subtherapeutic - Patient went for procedure today; will address subtherapeutic INR after procedure - It has been 48 hours since initiation of warfarin and INR has decreased; will likely need to increase dose or consider re-bridging with lovenox - Encourage ambulation 3. Acute liver failure - Liver enzymes downtrending - Likely improving because hepatic congestion is improving with diuresis 4. Hyperbilirubinemia - Likely 2/2 hepatic congestion from above 5. Acute kidney injury - Improving with diuresis 6. Demand ischemia - Troponin elevated, but stable - Likely 2/2 demand from hypoperfusion 2/2 CHF exacerbation and third spacing - Cards consulted; appreciate recs 7. Lactic acidosis, resolved - Likely 2/2 hypoperfusion 8. Hemoptysis - TB with indeterminate A. - Possibly related to hemorrhage from PE's 9. Hyponatremia - Na 126 --> 121 --> 122 --> 125 --> 127 - Continue to trend - Likely 2/2 fluid overload - On sodium bicarb 10. Leukocytosis - Initial concern for severe sepsis based on tachycardia and elevated WBC - Patient started on vanc, zosyn, levoquin in Ed - Blood cx obtained after initiation of abx; blood cultures negative to date - UA negative - Procalcitonin 2 --> downtrending - Continue PO levoquin for possible infection leading to sepsis (d/c after 10 days) - Trend CBC; WBC trending down 11. Coagulopathy - Picture consistent with DIC - Likely 2/2 liver failure - Heme consulted; appreciate recs - Warfarin started when INR was just below 2; adjust dose as necessary 12. Elevated ammonia level - 2/2 liver failure - Ammonia wnl now 13. Hypokalemia - Replace Dispo: Continue to titrate off dobutamine drip as appropriate and as BP allows. Cardiac cath to be done this AM. Will await Cardiology recs. Addendum - Attending - Attending Attestation Date/Time: 03/29/19 5932 I personally evaluated the patient and discussed the management with Dr. Lackey I agree with the History, Examination, Assessment and Plan documented above with any addition or exceptions noted below - Patient denies complaints. Sitting up in bed. Afebrile VSS. A/P: 1) HFrEF - continue current meds. S/P cath this morning with no CAD. Continue to diurese. 2) Shock liver - Liver enzymes continue to improve; continue to monitor. 3) PE- continue coumadin; continue to monitor INR
--- NOTE | 2019-03-29 10:01 | PDOC.CTH ---
Cardiology Progress Note - Subjective Pt. seen and eval. this AM. No new overnight events. - Objective Vital Signs Temp Pulse Resp BP Pulse Ox 03/29/19 07:51 98.1 F 95 16 109/67 97 03/29/19 03:50 98.6 F 98 16 103/52 L 95 Weight 233 lb 1 oz 03/28/19 03/29/19 03/30/19 06:59 06:59 06:59 Intake Total 1783 1592.6 Output Total 4125 4575 Balance -2342 -2982.4 - Physical Examination General/Neuro: alert & oriented x3 Neck: no JVD present Lungs: CTA Heart: RRR, other: (mild tachycardia.) - Telemetry Telemetry Rhythm: NSR,sinus tachycardia. - Labs Result Diagrams: 03/29/19 06:01 03/29/19 04:26 Troponin/CKMB CK-MB (CK-2) 5.3 ng/mL (0-6.6) 03/20/19 20:37 Troponin I 0.267 ng/mL (< 0.028) H 03/21/19 03:30 - Assessment/Plan 1. Acute on Chronic Systolic HF with EF 20-25% on 03/25/19 - Urine output still good with Dobutamine and 1 dose of zaroxolyn; Coreg is off for now; On IV Lasix 40mg which was increased from QD to BID; not on YINA/ARB due to FILEMON; Hold coreg while on dobutamine 2. Bilat PE and several Thrombi in [place] with "smoke" in LV -. The trhombus was not evident on the last echo but due to the severe decrease in LV function and PE's, he will need anticoagulation. Coumadin was started . We will need to follow th INR and renal function closely. 3. FILEMON - improving 4. Hyponatremia - On fluid restriction 5. Acute Liver failure - improving 6. BLE edema - Lt>Rt; improving. He continues to have significant edema. I will continue Zaroxolyn.He may need further albumin or increase dobutamine to 7.5microgr/kg/min. MAR reviewed * Echo on 03/21/2019 with EF 20-25%, dilated IVC, 2-3 apical thrombi 1cm with smoke in LV, mild dilated bilat ventricles, mild dilated LA, trace MR, mild-mod TR, mod ERA. * Another Echo on 03/25/2019 showed EF 20-25%. The pt had cardiac cath this AM. No CAD. Severe decrease in EF. * He will need a Life_Vest at d/c. If the EF has not improved after 90 days then an AICD will be advised. (Unfortunately, The pt is uninsured and may not be able to afford LifeVest). He will also need assistance with the medications.
[2019-03-29] MEDS ORDERED: Sodium Chloride 0.9% 200 ML IV PRN ×2 (10:17)
[2019-03-29] MEDS ORDERED: Acetaminophen/Codeine 30-300mg Tablet PO PRN ×4 (10:17)
[2019-03-29] MEDS ORDERED: Nitroglycerin 0.4 MG TAB (25 Tab Bottle) SL PRN ×2 (10:17)
[2019-03-29] MEDS ORDERED: Metolazone 5 MG TAB PO SCH ×2 (12:00→14:15)
[2019-03-29] MEDS ORDERED: Iopamidol 370 76% 100 ML VIAL ONE (15:44)
[2019-03-29] MEDS: Warfarin Sodium 7.5 MG TAB PO SCH (17:21)
[2019-03-30 05:40] LABS: #Basophils 0.1 thou/uL (0.0-0.2); #Eosinphils 0.1 thou/uL (0.0-0.7); #Lymphocytes 1.7 thou/uL (1.20-3.40); #Monocytes 1.8 thou/uL (0.11-0.59); %Basophils 0.5 % (0.0-1.0); %Eosinophils 0.4 % (0.0-10.0); %Lymphocytes 12.2 % (21.0-51.0); %Monocytes 13.3 % (0.0-10.0); %Neutrophils 73.6 % (42.0-75.0); Hemoglobin 12.9 g/dL (14.0-18.0); Mean Corpuscular HGB CONC 30.9 g/dL (32.0-36.0); Mean Corpuscular Hemoglobin 28.2 pg (27.0-31.0); Mean Corpuscular Volume 91.4 fL (78.0-98.0); Mean Platelet Volume 8.3 fL (7.4-10.4); Platelet Count 206 thou/uL (130-400); RBC Distribution Width 16.4 % (11.5-14.5); Red Blood Cell (RBC) Count 4.56 mill/uL (4.70-6.10); White Blood Cell (WBC) Count 13.6 thou/uL (4.8-10.8)
[2019-03-30 05:47] LABS: INR-International Normal Ratio 1.5; Prothrombin Time 17.9 SEC (12.0-14.7)
[2019-03-30 05:48] LABS: PTT 36.9 SEC (22.9-36.1)
[2019-03-30] MEDS: Furosemide 40 MG/4 ML VIAL SLOW IVP SCH ×2 (05:57→13:53)
[2019-03-30 06:03] LABS: ALT (SGPT) 151 U/L (8-55); AST (SGOT) 87 U/L (5-34); Albumin 2.2 g/dL (3.5-5.0); Alkaline Phosphatase 210 U/L (40-150); Anion Gap 9 mmol/L (10-20); BUN (Urea Nitrogen) 22 mg/dL (8.9-20.6); Bilirubin, Total 5.2 mg/dL (0.2-1.2); Calc. Creatinine Clearance 113 mL/min (70-130); Calcium 7.9 mg/dL (7.8-10.44); Carbon Dioxide 33 mmol/L (22-29); Chloride 88 mmol/L (98-107); Estimated GFR-MDRD 70; Globulin 2.8 g/dL (2.4-3.5); Glucose 123 mg/dL (70-105); Potassium 3.1 mmol/L (3.5-5.1); Sodium 127 mmol/L (136-145)
[2019-03-30] MEDS ORDERED: Potassium Chloride 20 MEQ TAB PO SCH (06:45)
--- NOTE | 2019-03-30 08:59 | PDOC.FM ---
- Subjective Subjective: Patient laying in bed this AM. No significant overnight events. Patient had cardiac cath yesterday which was negative. He is still being titrated off of dobutamine drip. Denies N/V, shortness of breath, chest pain. - Objective MAR Reviewed: Yes Vital Signs & Weight: Vital Signs (12 hours) Temp Pulse Resp BP Pulse Ox 03/30/19 05:20 98.4 F 100 18 137/69 97 Weight Weight 102.257 kg Most Recent Monitor Data Heart Rate from ECG 98 NIBP 107/67 NIBP BP-Mean 80 Respiration from ECG 21 I&O: 03/29/19 03/30/19 03/31/19 06:59 06:59 06:59 Intake Total 1592.6 1751.4 Output Total 4575 5456 Balance -2982.4 -3704.6 Result Diagrams: 03/31/19 06:31 03/31/19 06:30 EKG Reviewed by me: Yes Radiology Reviewed by me: Yes Phys Exam - Physical Examination Constitutional: NAD HEENT: moist MMs Respiratory: clear to auscultation bilateral Cardiovascular: RRR Gastrointestinal: soft, no distention 3+ pitting edema L>R, worse in feet Neurological: non-focal, moves all 4 limbs Psychiatric: normal affect, A&O x 3 Skin: no rash, cap refill <2 seconds Dx/Plan (1) Acute heart failure Code(s): I50.9 - HEART FAILURE, UNSPECIFIED Status: Acute (2) Hyperbilirubinemia Code(s): E80.6 - OTHER DISORDERS OF BILIRUBIN METABOLISM Status: Acute (3) Increased ammonia level Code(s): R79.89 - OTHER SPECIFIED ABNORMAL FINDINGS OF BLOOD CHEMISTRY Status : Acute (4) Demand ischemia Code(s): I24.8 - OTHER FORMS OF ACUTE ISCHEMIC HEART DISEASE Status: Acute (5) Lactic acidosis Code(s): E87.2 - ACIDOSIS Status: Acute (6) Acute liver failure Status: Acute (7) Acute renal injury Code(s): N17.9 - ACUTE KIDNEY FAILURE, UNSPECIFIED Status: Acute (8) Pneumonia Code(s): J18.9 - PNEUMONIA, UNSPECIFIED ORGANISM Status: Acute (9) Pulmonary emboli Code(s): I26.99 - OTHER PULMONARY EMBOLISM WITHOUT ACUTE COR PULMONALE Status : Acute - Plan Plan: 29 year old male with no significant PMH presents with a one month history of progressive weakness, shortness of breath, and lower extremity swelling 1. Acute on chronic HFrEF (20-25%) - Cardiac cath done yesterday with no evidence of stenosis - Continue diuresis; metalazone helping - Patient being titrated off of dobutamine drip; consider oral inotropic agents if necessary. Consider holding hydralazine and imdur while diuresing to avoid continued drop in BP. BP appears stable currently. - Cards consulted; appreciate recs - On digoxin, hydralazine, and imdur per cards - Carvedilol held d/t BP - YINA-I not started d/t kidney function - Lifevest discussed with patient on several occasions; he likely will not be able to afford 2. Bilateral pulmonary emboli - Transitioned to warfarin as patient cannot afford NOAC and is uninsured; as liver failure 2/2 hepatic congestion d/t overload, anticipate continued improvement in liver function - INR subtherapeutic despite increase in warfarin dose. Will need to consider increase in dose again vs. bridging with lovenox 3. Acute liver failure - Liver enzymes downtrending - Likely improving because hepatic congestion is improving with diuresis 4. Hyperbilirubinemia - Likely 2/2 hepatic congestion from above 5. Acute kidney injury - Improving with diuresis 6. Demand ischemia - Troponin elevated, but stable - Likely 2/2 demand from hypoperfusion 2/2 CHF exacerbation and third spacing - Cards consulted; appreciate recs 7. Lactic acidosis, resolved - Likely 2/2 hypoperfusion 8. Hemoptysis - TB with indeterminate A. - Possibly related to hemorrhage from PE's 9. Hyponatremia - Na 126 --> 121 --> 122 --> 125 --> 127 - Continue to trend - Likely 2/2 fluid overload - On sodium bicarb - Fluid restriction 10. Leukocytosis - Initial concern for severe sepsis based on tachycardia and elevated WBC - Patient started on vanc, zosyn, levoquin in Ed - Blood cx obtained after initiation of abx; blood cultures negative - UA negative - Procalcitonin 2 --> downtrending - Levoquin d/c'd - Trend CBC; WBC trending down 11. Coagulopathy - Picture consistent with DIC - Likely 2/2 liver failure - Heme consulted; appreciate recs - Warfarin started when INR was just below 2; adjust dose as necessary, consider re-bridging 12. Elevated ammonia level - 2/2 liver failure - Ammonia wnl now 13. Hypokalemia - Replace Dispo: Continue to titrate off dobutamine drip as appropriate and as BP allows. Continue diuresis. Addendum - Attending - Attending Attestation Date/Time: 03/31/19 [id number] I personally evaluated the patient and discussed the management with Dr. Lackey on 03/30/2019 I agree with the History, Examination, Assessment and Plan documented above with any addition or exceptions noted below - Patient without complaints. Denies any CP or SOB. Afebrile VSS. A/P: 1) HFrEF - continuing to diurese. Continue meds as per cardiology. 2) PE- continue to titrate warfarin. 3) Shock liver- resolving.
--- NOTE | 2019-03-30 09:02 | PDOC.CTH ---
Cardiology Progress Note - Subjective The pt seen and examined. No overnight events. No cardiac complaints. - Objective Vital Signs Temp Pulse Resp BP Pulse Ox 03/30/19 05:20 98.4 F 100 18 137/69 97 Weight 225 lb 7 oz 03/29/19 03/30/19 03/31/19 06:59 06:59 06:59 Intake Total 1592.6 1751.4 Output Total 4575 5456 Balance -2982.4 -3704.6 - Physical Examination General/Neuro: alert & oriented x3 Neck: no JVD present Lungs: CTA Heart: RRR Extremities: other: (2-3+ pitting BLE edema; Lt>Rt) - Telemetry Telemetry Rhythm: SR with frequesnt PVCs - Labs Result Diagrams: 03/30/19 05:28 03/30/19 05:28 Troponin/CKMB CK-MB (CK-2) 5.3 ng/mL (0-6.6) 03/20/19 20:37 Troponin I 0.267 ng/mL (< 0.028) H 03/21/19 03:30 - Assessment/Plan 1. Acute on Chronic Systolic HF with EF 20-25% on 03/25/19 - almost 5500ml urine output yesterday with Dobutamine and 1 dose of zaroxolyn; Cont. Dobutamine 5mc/kg/min; Coreg is off for now; On IV Lasix 40mg which was increased from QD to BID; not on YINA/ARB due to FILEMON; Hold coreg while on dobutamine 2. Bilat PE and several Thrombi in [place] with "smoke" in LV -. The trhombus was not evident on the last echo but due to the severe decrease in LV function and PE's, he will need anticoagulation. Coumadin was started . We will need to follow the INR and renal function closely. 3. FILEMON - improving 4. Hyponatremia - On fluid restriction 5. Acute Liver failure - improving 6. BLE edema - Lt>Rt; improving. He continues to have significant edema. He may need further albumin, Metolazone, or increase dobutamine to 7.5microgr/kg/min. ALEXA reviewed * Echo on 03/21/2019 with EF 20-25%, dilated IVC, 2-3 apical thrombi 1cm with smoke in LV, mild dilated bilat ventricles, mild dilated LA, trace MR, mild-mod TR, mod ERA. * Another Echo on 03/25/2019 showed EF 20-25%. Cardiac cath on 03/29/2019 with normal Coronary arteries. * He will need a LifeVest at d/c. If the EF has not improved after 90 days then an AICD will be advised. (Unfortunately, The pt is uninsured and may not be able to afford LifeVest). He will also need assistance with the medications. <addendum> Will hold Dobutamin over night and re-eval tomorrow AM. Review of Systems - Review of Systems Constitutional: reports: no symptoms reported EENTM: reports: no symptoms reported Respiratory: reports: no symptoms reported Cardiac (ROS): reports: no symptoms reported ABD/GI: reports: no symptoms reported : reports: no symptoms reported Musculoskeletal: reports: no symptoms reported
[2019-03-30] MEDS ORDERED: Magnesium Sulfate 3 GM in Sodium Chloride 0.9% 100 ML IVPB SCH (09:15)
[2019-03-30] MEDS: Sodium Bicarbonate Tab 325 MG TAB PO SCH ×2 (09:40→20:15)
[2019-03-30] MEDS: Isosorbide Dinitrate 5 MG TAB PO SCH ×3 (09:40→20:11)
[2019-03-30] MEDS: Digoxin 0.25 MG TAB PO SCH (09:41)
[2019-03-30] MEDS: hydrALAZINE 10 MG TAB PO SCH ×3 (09:41→20:11)
[2019-03-30 13:59] VITALS: BMI 31.4
[2019-03-30] MEDS: Warfarin Sodium 7.5 MG TAB PO SCH (16:24)
[2019-03-30] MEDS: Enoxaparin Sodium 100 MG/ML SYRINGE SC SCH (20:12)
[2019-03-31] MEDS: Furosemide 40 MG/4 ML VIAL SLOW IVP SCH (05:14)
[2019-03-31 06:50] LABS: #Eosinphils 0.2 thou/uL (0.0-0.7); #Lymphocytes 1.8 thou/uL (1.20-3.40); #Monocytes 1.7 thou/uL (0.11-0.59); #Neutrophils 9.4 thou/uL (1.40-6.50); %Basophils 0.3 % (0.0-1.0); %Eosinophils 1.3 % (0.0-10.0); %Lymphocytes 13.8 % (21.0-51.0); %Monocytes 12.9 % (0.0-10.0); %Neutrophils 71.8 % (42.0-75.0); Hemoglobin 14.4 g/dL (14.0-18.0); Mean Corpuscular HGB CONC 30.9 g/dL (32.0-36.0); Mean Corpuscular Hemoglobin 27.8 pg (27.0-31.0); Mean Corpuscular Volume 89.9 fL (78.0-98.0); Mean Platelet Volume 8.2 fL (7.4-10.4); Platelet Count 242 thou/uL (130-400); RBC Distribution Width 16.5 % (11.5-14.5); Red Blood Cell (RBC) Count 5.19 mill/uL (4.70-6.10)
[2019-03-31 07:03] LABS: INR-International Normal Ratio 1.7; PTT 44.8 SEC (22.9-36.1); Prothrombin Time 20.2 SEC (12.0-14.7)
[2019-03-31 07:12] LABS: ALT (SGPT) 148 U/L (8-55); AST (SGOT) 103 U/L (5-34); Albumin 2.6 g/dL (3.5-5.0); Alkaline Phosphatase 266 U/L (40-150); Anion Gap 8 mmol/L (10-20); BUN (Urea Nitrogen) 22 mg/dL (8.9-20.6); Bilirubin, Total 4.7 mg/dL (0.2-1.2); Calc. Creatinine Clearance 106 mL/min (70-130); Calcium 8.6 mg/dL (7.8-10.44); Carbon Dioxide 37 mmol/L (22-29); Chloride 89 mmol/L (98-107); Estimated GFR-MDRD 73; Globulin 3.4 g/dL (2.4-3.5); Glucose 114 mg/dL (70-105); Magnesium 1.8 mg/dL (1.6-2.6); Potassium 3.1 mmol/L (3.5-5.1); Sodium 131 mmol/L (136-145)
[2019-03-31] MEDS: Isosorbide Dinitrate 5 MG TAB PO SCH ×3 (08:50→21:31)
[2019-03-31] MEDS: Digoxin 0.25 MG TAB PO SCH (08:50)
[2019-03-31] MEDS: Enoxaparin Sodium 100 MG/ML SYRINGE SC SCH ×2 (08:50→21:29)
[2019-03-31] MEDS: hydrALAZINE 10 MG TAB PO SCH ×3 (08:50→21:30)
[2019-03-31] MEDS: Potassium Chloride 20 MEQ TAB PO SCH ×2 (08:50→16:56)
[2019-03-31] MEDS: Sodium Bicarbonate Tab 325 MG TAB PO SCH (08:51)
--- NOTE | 2019-03-31 08:52 | PDOC.CTH ---
Cardiology Progress Note - Subjective The pt seen and examined. No overnight events. No cardiac complaints. - Objective Vital Signs Temp Pulse Resp BP Pulse Ox 03/31/19 03:00 99.1 F 102 H 19 127/69 95 Admit Weight 238 lb 5 oz Weight 211 lb 5 oz 03/30/19 03/31/19 04/01/19 06:59 06:59 06:59 Intake Total 1751.4 1657.9 Output Total 5456 7050 Balance -3704.6 -5392.1 - Physical Examination General/Neuro: alert & oriented x3 Neck: no JVD present Lungs: CTA Heart: RRR Abdomen: soft Extremities: other: (2-3+ pitting BLE edema) - Telemetry Telemetry Rhythm: SR - Labs Result Diagrams: 03/31/19 06:31 03/31/19 06:30 Troponin/CKMB CK-MB (CK-2) 5.3 ng/mL (0-6.6) 03/20/19 20:37 Troponin I 0.267 ng/mL (< 0.028) H 03/21/19 03:30 - Assessment/Plan 1. Acute on Chronic Systolic HF with EF 20-25% on 03/25/19 - almost 7500 ml urine output yesterday; Dobutamine drip has been on hold from 1900 on 2018. On IV Lasix 40mg BID; not on YINA/ARB due to FILEMON; Will resume Coreg 3.125mg BID from this AM. 2. Bilat PE and several Thrombi in [place] with "smoke" in LV -. The trhombus was not evident on the last echo but due to the severe decrease in LV function and PE's, he will need anticoagulation. Coumadin was started. We will need to follow the INR and renal function closely. 3. FILEMON - improving 4. Hyponatremia - slowly improving with fluid restriction 5. Acute Liver failure - improving 6. BLE edema - Lt>Rt; improving. If his symptoms become worse, he may need further albumin, Metolazone, or resume dobutamine. MAR reviewed * Echo on 03/21/2019 with EF 20-25%, dilated IVC, 2-3 apical thrombi 1cm with smoke in LV, mild dilated bilat ventricles, mild dilated LA, trace MR, mild-mod TR, mod ERA. * Another Echo on 03/25/2019 showed EF 20-25%. Cardiac cath on 03/29/2019 with normal Coronary arteries. * He will need a LifeVest at d/c. If the EF has not improved after 90 days then an AICD will be advised. (Unfortunately, The pt is uninsured and may not be able to afford LifeVest). He will also need assistance with the medications. Pt. seen and eval. by me. I agree with the a/p by the [employer]. He diuresed a significant amount in the last 24 hrs. and the lower extremity edema has improved. he has mild edema still . Chest : decreased R base. He is tolerating Coreg thus far. BP and c.O. seem stable off dobutamine. <Addendum> Entresto 24/26mg will prescribed for low EF Review of Systems - Review of Systems Constitutional: reports: no symptoms reported EENTM: reports: no symptoms reported Cardiac (ROS): reports: no symptoms reported ABD/GI: reports: no symptoms reported : reports: no symptoms reported
--- NOTE | 2019-03-31 09:05 | PDOC.FM ---
- Subjective Subjective: Patient doing well this AM. No significant overnight events. Patient now off dobutamine drip. He states he has been able to walk around without getting short of breath. Denies N/V, chest pain, palpitations. - Objective MAR Reviewed: Yes Vital Signs & Weight: Vital Signs (12 hours) Temp Pulse Resp BP Pulse Ox 03/31/19 08:50 91 03/31/19 03:00 99.1 F 102 H 19 127/69 95 Weight Admit Weight 108.097 kg Weight 95.85 kg Most Recent Monitor Data Heart Rate from ECG 98 NIBP 107/67 NIBP BP-Mean 80 Respiration from ECG 21 I&O: 03/30/19 03/31/19 04/01/19 06:59 06:59 06:59 Intake Total 1751.4 1657.9 Output Total 5456 7050 Balance -3704.6 -5392.1 Result Diagrams: 03/31/19 06:31 03/31/19 06:30 EKG Reviewed by me: Yes Radiology Reviewed by me: Yes Phys Exam - Physical Examination Constitutional: NAD HEENT: moist MMs Respiratory: clear to auscultation bilateral Cardiovascular: RRR, no significant murmur Gastrointestinal: soft, no distention 1+ pitting edema, improved from previous exams Neurological: non-focal, moves all 4 limbs Psychiatric: A&O x 3 Skin: no rash, cap refill <2 seconds Dx/Plan (1) Acute heart failure Code(s): I50.9 - HEART FAILURE, UNSPECIFIED Status: Acute (2) Hyperbilirubinemia Code(s): E80.6 - OTHER DISORDERS OF BILIRUBIN METABOLISM Status: Acute (3) Increased ammonia level Code(s): R79.89 - OTHER SPECIFIED ABNORMAL FINDINGS OF BLOOD CHEMISTRY Status : Acute (4) Demand ischemia Code(s): I24.8 - OTHER FORMS OF ACUTE ISCHEMIC HEART DISEASE Status: Acute (5) Lactic acidosis Code(s): E87.2 - ACIDOSIS Status: Acute (6) Acute liver failure Status: Acute (7) Acute renal injury Code(s): N17.9 - ACUTE KIDNEY FAILURE, UNSPECIFIED Status: Acute (8) Pneumonia Code(s): J18.9 - PNEUMONIA, UNSPECIFIED ORGANISM Status: Acute (9) Pulmonary emboli Code(s): I26.99 - OTHER PULMONARY EMBOLISM WITHOUT ACUTE COR PULMONALE Status : Acute - Plan Plan: 29 year old male with no significant PMH presents with a one month history of progressive weakness, shortness of breath, and lower extremity swelling 1. Acute on chronic HFrEF (20-25%) - Cardiac cath without evidence of stenosis - Continue diuresis; metalazone helping (Output of 7.5 L yesterday) - Patient off dobutamine drip - Cards consulted; appreciate recs - On digoxin, hydralazine, and imdur per cards - Carvedilol held d/t BP, may consider restarting if ok by Cards - YINA-I not started d/t kidney function - [facility] discussed with patient on several occasions; he likely will not be able to afford 2. Bilateral pulmonary emboli - Transitioned to warfarin as patient cannot afford NOAC and is uninsured; as liver failure 2/2 hepatic congestion d/t overload, anticipate continued improvement in liver function - INR subtherapeutic despite increase in warfarin dose. Will continue bridging with lovenox. 3. Acute liver failure - Liver enzymes downtrending - Likely improving because hepatic congestion is improving with diuresis 4. Hyperbilirubinemia - Likely 2/2 hepatic congestion from above 5. Acute kidney injury - Improving with diuresis - Cr has stabilized; expect that this is patient's new baseline - Avoid nephrotoxic agents 6. Demand ischemia - Troponin elevated, but stable - Likely 2/2 demand from hypoperfusion 2/2 CHF exacerbation and third spacing - Cards consulted; appreciate recs 7. Lactic acidosis, resolved - Likely 2/2 hypoperfusion 8. Hemoptysis - TB with indeterminate A. - Possibly related to hemorrhage from PE's 9. Hyponatremia - Na 126 --> 121 --> 122 --> 125 --> 127 --> 131 - Continue to trend - Likely 2/2 fluid overload - Fluid restriction 10. Leukocytosis - Initial concern for severe sepsis based on tachycardia and elevated WBC - Patient started on vanc, zosyn, levoquin in Ed - Blood cx obtained after initiation of abx; blood cultures negative - UA negative - Procalcitonin 2 --> downtrending - Levoquin d/c'd - Trend CBC; WBC trending down 11. Coagulopathy - Picture consistent with DIC - Likely 2/2 liver failure - Heme consulted; appreciate recs - Warfarin started when INR was just below 2; adjust dose as necessary, continue bridging 12. Elevated ammonia level - 2/2 liver failure - Ammonia wnl now 13. Hypokalemia - Replace 14. Contraction alkalosis - Will d/c sodium bicarb Dispo: Continue diuresis. Patient off dobutamine drip. Continue bridging with lovenox. Addendum - Attending - Attending Attestation Date/Time: 03/31/19 1034 I personally evaluated the patient and discussed the management with Dr. Lackey. I agree with the History, Examination, Assessment and Plan documented above with any addition or exceptions noted below. Patient here for new onset sCHF and PE with new onset liver failure and FILEMON. Fortunately, all of those things have improved somewhat. He continues on anticoagulation with coumadin with lovenox bridge. Renal function overall stable. He has been off Dobutamine drip overnight and renal function overall stable and he continues to diurese well. WBC stable. LFTs continue to downtrend and his other liver function studies show improvement. He does have a bit of a likely contraction alkolosis today, will d/c bicarbonate therapy and monitor. Await further recs from Cardiology but anticipate 2-3 more days hospitalization needed. Will need [facility] consult prior to discharge.
[2019-03-31] MEDS ORDERED: Carvedilol 3.125 MG TAB PO SCH (10:15)
--- NOTE | 2019-03-31 14:11 | RAD ---
XR Chest 1 View HISTORY: Shortness of breath. Congestive heart failure. COMPARISON: 03/21/2019 study. FINDINGS: Heart size is enlarged. There is a mild right-sided pneumothorax of approximately 15-20%. T here is some right pleural effusion present. There are also right lower lobe parenchymal lung changes. The retrocardiac region is difficult to assess. IMPRESSION: Development of a right-sided pneumothorax of uncertain etiology. I have contacted the pat ient's nurse concerning these findings and there is currently a page in to the physician.
--- NOTE | 2019-03-31 14:41 | PDOC.EVN ---
Event Note - Event Note Event Note: 03/31/2019 at 14:10 Received call from radiology regarding CXR. Pneumothorax of right side 15-20%. Respiratory status currently stable. 97% on RA, no tachypnea. Intermittently elevated HR. Stable BP. Will repeat CXR in 3 hours. If worsening in pneumo or respiratory status, then will transfer patient to ICU. Spoke with pulmonology who thinks this could be related to blood from PE's, and there is a possibility this could get worse. Will also notify CV surgery.
--- NOTE | 2019-03-31 16:20 | RAD ---
XR Chest 1 View Portable HISTORY:Follow-up of pneumothorax. COMPARISON: Exam done earlier today. FINDINGS: There is a stable appearance to right-sided pneumothorax as well as pleural and parenchymal lung changes. IMPRESSION: Stable pneumothorax.
[2019-03-31] MEDS: Warfarin Sodium 7.5 MG TAB PO SCH (16:56)
[2019-03-31] MEDS: Carvedilol 3.125 MG TAB PO SCH (16:56)
[2019-03-31] MEDS: Sacubitril 24.5 MG/Valsartan 25.5 MG TABLET PO SCH (21:31)
[2019-04-01 04:51] LABS: #Basophils 0.1 thou/uL (0.0-0.2); #Eosinphils 0.2 thou/uL (0.0-0.7); #Lymphocytes 2.4 thou/uL (1.20-3.40); #Monocytes 1.6 thou/uL (0.11-0.59); #Neutrophils 10.1 thou/uL (1.40-6.50); %Basophils 0.5 % (0.0-1.0); %Eosinophils 1.6 % (0.0-10.0); %Lymphocytes 16.5 % (21.0-51.0); %Monocytes 11.1 % (0.0-10.0); %Neutrophils 70.3 % (42.0-75.0); Hemoglobin 13.4 g/dL (14.0-18.0); Mean Corpuscular HGB CONC 32.2 g/dL (32.0-36.0); Mean Corpuscular Hemoglobin 29.2 pg (27.0-31.0); Mean Corpuscular Volume 90.6 fL (78.0-98.0); Mean Platelet Volume 8.5 fL (7.4-10.4); Platelet Count 222 thou/uL (130-400); RBC Distribution Width 16.4 % (11.5-14.5); Red Blood Cell (RBC) Count 4.58 mill/uL (4.70-6.10); White Blood Cell (WBC) Count 14.4 thou/uL (4.8-10.8)
[2019-04-01 04:57] LABS: Prothrombin Time 23.1 SEC (12.0-14.7)
[2019-04-01 04:58] LABS: PTT 58.8 SEC (22.9-36.1)
[2019-04-01 05:12] LABS: ALT (SGPT) 113 U/L (8-55); AST (SGOT) 82 U/L (5-34); Albumin 2.3 g/dL (3.5-5.0); Alkaline Phosphatase 209 U/L (40-150); Anion Gap 10 mmol/L (10-20); BUN (Urea Nitrogen) 21 mg/dL (8.9-20.6); Bilirubin, Total 3.4 mg/dL (0.2-1.2); Calc. Creatinine Clearance 126 mL/min (70-130); Carbon Dioxide 31 mmol/L (22-29); Chloride 94 mmol/L (98-107); Estimated GFR-MDRD 89; Globulin 3.1 g/dL (2.4-3.5); Glucose 88 mg/dL (70-105); Potassium 3.6 mmol/L (3.5-5.1); Protein, Total 5.4 g/dL (6.0-8.3); Sodium 131 mmol/L (136-145)
[2019-04-01] MEDS ORDERED: Furosemide 40 MG/4 ML VIAL SLOW IVP SCH (09:00)
[2019-04-01] MEDS: Potassium Chloride 20 MEQ TAB PO SCH (09:04)
[2019-04-01] MEDS: Digoxin 0.25 MG TAB PO SCH (09:04)
[2019-04-01] MEDS: Carvedilol 3.125 MG TAB PO SCH ×2 (09:05→18:16)
[2019-04-01] MEDS: hydrALAZINE 10 MG TAB PO SCH ×3 (09:05→20:04)
[2019-04-01] MEDS: Isosorbide Dinitrate 5 MG TAB PO SCH ×3 (09:05→20:05)
--- NOTE | 2019-04-01 09:25 | PDOC.FM ---
- Subjective Subjective: Patient doing well this AM. He was up and walking around the room on evaluation. Patient denies shortness of breath, chest pain, or palpitation. Patient states that he is really ready to go home. He is being patient and understands that there is still more we need to do to ensure he is stable prior to d/c. - Objective MAR Reviewed: Yes Vital Signs & Weight: Vital Signs (12 hours) Temp Pulse Resp BP BP Pulse Ox 04/01/19 08:11 97.9 F 93 18 111/66 98 04/01/19 02:48 100.3 F H 102 H 17 95/50 L 96 03/31/19 21:30 100 118/70 03/31/19 21:27 99 Weight Admit Weight 108.097 kg Weight 93.939 kg Most Recent Monitor Data Heart Rate from ECG 98 NIBP 107/67 NIBP BP-Mean 80 Respiration from ECG 21 I&O: 03/31/19 04/01/19 04/02/19 06:59 06:59 06:59 Intake Total 1657.9 1200 Output Total 7050 3900 Balance -5392.1 -2700 Result Diagrams: 04/01/19 04:17 04/01/19 04:17 EKG Reviewed by me: Yes Radiology Reviewed by me: Yes Phys Exam - Physical Examination Constitutional: NAD HEENT: moist MMs Respiratory: clear to auscultation bilateral Mildly decreased breath sounds on right peripheral lung covarrubias Cardiovascular: RRR, no significant murmur Gastrointestinal: soft, no distention 2+ pitting edema to level of ankle bilaterally Neurological: non-focal, moves all 4 limbs Psychiatric: A&O x 3 Deviation from normal: Depressed affect Skin: no rash, cap refill <2 seconds Dx/Plan (1) Acute heart failure Code(s): I50.9 - HEART FAILURE, UNSPECIFIED Status: Acute (2) Hyperbilirubinemia Code(s): E80.6 - OTHER DISORDERS OF BILIRUBIN METABOLISM Status: Acute (3) Increased ammonia level Code(s): R79.89 - OTHER SPECIFIED ABNORMAL FINDINGS OF BLOOD CHEMISTRY Status : Acute (4) Demand ischemia Code(s): I24.8 - OTHER FORMS OF ACUTE ISCHEMIC HEART DISEASE Status: Acute (5) Lactic acidosis Code(s): E87.2 - ACIDOSIS Status: Acute (6) Acute liver failure Status: Acute (7) Acute renal injury Code(s): N17.9 - ACUTE KIDNEY FAILURE, UNSPECIFIED Status: Acute (8) Pneumonia Code(s): J18.9 - PNEUMONIA, UNSPECIFIED ORGANISM Status: Acute (9) Pulmonary emboli Code(s): I26.99 - OTHER PULMONARY EMBOLISM WITHOUT ACUTE COR PULMONALE Status : Acute - Plan Plan: 29 year old male with no significant PMH presents with a one month history of progressive weakness, shortness of breath, and lower extremity swelling 1. Acute on chronic HFrEF (20-25%) - Cardiac cath without evidence of stenosis - Continue diuresis; metalazone helping (Output of 4 L yesterday) - Patient off dobutamine drip; BP low to 95/50 - Cards consulted; appreciate recs - On digoxin, hydralazine, and imdur per cards - Carvedilol restarted yesterday - YINA-I not started d/t kidney function; may consider starting now - [facility] discussed with patient on several occasions; he likely will not be able to afford 2. Bilateral pulmonary emboli - Transitioned to warfarin as patient cannot afford NOAC and is uninsured; as liver failure 2/2 hepatic congestion d/t overload, anticipate continued improvement in liver function - INR 2 this AM. Will d/c therapeutic lovenox 3. Acute liver failure - Liver enzymes downtrending - Likely improving because hepatic congestion is improving with diuresis 4. Hyperbilirubinemia - Likely 2/2 hepatic congestion from above 5. Acute kidney injury - Improving with diuresis - Cr has stabilized; expect that this is patient's new baseline - Avoid nephrotoxic agents 6. Demand ischemia - Troponin elevated, but stable - Likely 2/2 demand from hypoperfusion 2/2 CHF exacerbation and third spacing - Cards consulted; appreciate recs 7. Lactic acidosis, resolved - Likely 2/2 hypoperfusion 8. Hemoptysis - TB with indeterminate A. - Possibly related to hemorrhage from PE's 9. Hyponatremia - Na 126 --> 121 --> 122 --> 125 --> 127 --> 131 - Continue to trend - Likely 2/2 fluid overload - Fluid restriction 10. Leukocytosis - Initial concern for severe sepsis based on tachycardia and elevated WBC - Patient started on vanc, zosyn, levoquin in Ed - Blood cx obtained after initiation of abx; blood cultures negative - UA negative - Procalcitonin 2 --> downtrended - Levoquin d/c'd after 10 day course. - No s/s of infection 11. Coagulopathy - Picture consistent with DIC - Likely 2/2 liver failure - Heme consulted; appreciate recs - Continue warfarin. INR at 2 this AM. Will stop therapeutic lovenox 12. Elevated ammonia level - 2/2 liver failure - Ammonia wnl now 13. Hypokalemia - Replace 14. Contraction alkalosis - d/c'd sodium bicarb 15. Pneumothorax - Called by radiology regarding 15-20% pneumothorax on right - Repeated 3 hours later per Pulm and stable - Pulm concerned that this is 2/2 blood from PE's and patient could decompensate - CV Surg has been notified of patient should need for chest tube arise Dispo: Continue diuresis. Patient off dobutamine drip. Monitor respiratory status with new pneumothorax. Addendum - Attending - Attending Attestation Date/Time: 04/01/19 1051 I personally evaluated the patient and discussed the management with Dr. Lackey I agree with the History, Examination, Assessment and Plan documented above with any addition or exceptions noted below- Patient without complaints. denies any CP/SOB. Afebrile VSS A/P: 1) HFrEF- continue current meds. Continues to diurese; weight down 17 kg. Case management involved for medication assistance. 2) PE- INR=2.0 today; lovenox discontinued; continue coumadin. 3) Shock liver- improved. 4) FILEMON-improved
--- NOTE | 2019-04-01 09:53 | PDOC.CTH ---
Cardiology Progress Note - Subjective The pt seen and examined. No overnight events. No cardiac complaints. - Objective Vital Signs Temp Pulse Resp BP Pulse Ox 04/01/19 08:11 97.9 F 93 18 111/66 98 04/01/19 02:48 100.3 F H 102 H 17 95/50 L 96 Admit Weight 238 lb 5 oz Weight 207 lb 1.6 oz 03/31/19 04/01/19 04/02/19 06:59 06:59 06:59 Intake Total 1657.9 1200 Output Total 7050 3900 Balance -5392.1 -2700 - Physical Examination General/Neuro: alert & oriented x3 Neck: no JVD present Lungs: CTA Heart: RRR Abdomen: soft Extremities: other: (1-2+ pitting BLE edema) - Telemetry Telemetry Rhythm: SR - Labs Result Diagrams: 04/01/19 04:17 04/01/19 04:17 Troponin/CKMB CK-MB (CK-2) 5.3 ng/mL (0-6.6) 03/20/19 20:37 Troponin I 0.267 ng/mL (< 0.028) H 03/21/19 03:30 - Assessment/Plan 1. Acute on Chronic Systolic HF with EF 20-25% on 03/25/19 - almost 4000 ml urine output yesterday; Dobutamine drip has been on hold from 1900 on 2018. On IV Lasix 40mg, which was changed from BID to qd from today; On Entresto 24/26mg BID from last night. On Coreg 3.125mg BID. 2. Bilat PE and several Thrombi in [place] with "smoke" in LV -. The trhombus was not evident on the last echo but due to the severe decrease in LV function and PE's, he will need anticoagulation. Coumadin was started. We will need to follow the INR and renal function closely. 3. FILEMON - improving 4. Hyponatremia - slowly improving with fluid restriction 5. Acute Liver failure - improving 6. BLE edema - Lt>Rt; improving. If his symptoms become worse, he may need further albumin, Metolazone, or resume dobutamine. MAR reviewed * Echo on 03/21/2019 with EF 20-25%, dilated IVC, 2-3 apical thrombi 1cm with smoke in LV, mild dilated bilat ventricles, mild dilated LA, trace MR, mild-mod TR, mod ERA. * Another Echo on 03/25/2019 showed EF 20-25%. Cardiac cath on 03/29/2019 with normal Coronary arteries. * He will need a LifeVest at d/c. If the EF has not improved after 90 days then an AICD will be advised. (Unfortunately, The pt is uninsured and may not be able to afford LifeVest). He will also need assistance with the medications. Review of Systems - Review of Systems Constitutional: reports: no symptoms reported EENTM: reports: no symptoms reported Respiratory: reports: no symptoms reported Cardiac (ROS): reports: no symptoms reported ABD/GI: reports: no symptoms reported : reports: no symptoms reported Musculoskeletal: reports: no symptoms reported
[2019-04-01] MEDS: Sacubitril 24.5 MG/Valsartan 25.5 MG TABLET PO SCH ×2 (10:08→20:05)
--- NOTE | 2019-04-01 11:11 | CON ---
DATE OF CONSULTATION: 04/01/2019 CHIEF COMPLAINT: Pneumothorax. HISTORY OF PRESENT ILLNESS: The patient is a 29-year-old black man, who has been in the hospital for about 2 weeks. He had no known previous medical history, but after about a 2-week history of worsening lower extremity edema, cough, and intermittent vomiting, he was found in his truck by his mother obviously ill and he was unable to really provide any description of how long he had been in his truck or even how he had gotten there. He had generalized weakness. He reported some subjective fever and chills and myalgias and even reported one episode of hemoptysis. Although, the patient denied any alcohol or drug use. His urine toxicology screen was positive for methamphetamines. Although, his temperature is only 99.3 on presentation and the highest that it got over the next day or so was 99.9. He had a white count of 20.1 with a left shift on his initial blood work. He was also found to be coagulopathic with an INR of 1.7 and a PTT of 49.7. His bilirubin was 6.3 with an alkaline phosphatase of 123 and an AST of greater than 3500 and an ALT of 2697. His albumin was 2.9. His C-reactive protein was elevated and his procalcitonin was 2.37. His BUN was 41 and creatinine 2.27. The patient had a markedly diminished ejection fraction, the EF of around 20% to 25%. Moderately dilated ventricles with apical thrombi in the left ventricle. He also had CT evidence of that suggested small bilateral pulmonary emboli, although they seem to be far enough distal that these could represent false positives. He was fairly aggressively diuresed. His echocardiogram did not really show any improvement in ejection fraction, but followup echo did not show evidence of the apical thrombi that had been seen on the initial echocardiogram. The patient is gradually improved and is now being anticoagulated with Coumadin. He is ambulating without any chest pain or shortness of breath. Chest x-ray was done yesterday, although it is difficult for me to tell from talking to the patient or from the documentation in the chart, the exact reason for it. A small right-sided pneumothorax was identified. This was not present on a chest x-ray or chest CT scan that he had at the time of admission. Those films showed infiltrate suggestive of pneumonias, but no pneumothorax. Yesterday's chest x-ray was the first x-ray, he has had since admission without any specific intervention. This morning's chest x-ray shows some improvement. The apical component is roughly the same size, but the lateral component is improved. PAST MEDICAL HISTORY: The patient's past medical history is none. MEDICATIONS: He was on no medications prior to this hospitalization. ALLERGIES: HE HAS NO KNOWN DRUG ALLERGIES. REVIEW OF SYSTEMS: As above. PHYSICAL EXAMINATION: GENERAL: He is a young black man, in no distress. VITAL SIGNS: Currently, his heart rate is in the 90 to 100 range with a blood pressure of 95 to 130/50 to 70. He did have a temperature of a 100.3 early this morning, which is the only temperature of 100 or greater this whole hospitalization. Room air O2 saturations are 96% to 98%. LUNGS: He has clear and equal breath sounds. Perhaps there is some dullness to percussion at the right base. HEART: He has regular rate and rhythm. ABDOMEN: Soft and nontender. LABORATORY DATA: His labs and chest x-rays are as described above. IMPRESSION AND PLAN: It is unclear to me how this pneumothorax developed to the best of his knowledge. No attempted IJ or subclavian line placements have been made. There has been no intervening chest x-rays since admission that would correspond to attempts at line placement or any other invasive treatment. He has not been coughing. He denied any stumbling or falling, so I presume this would be addressed much like the first episode of spontaneous pneumothorax. Review of his CT on admission shows infiltrates, particularly on the right side. It does not seem to indicate any obvious bullous disease. His pneumothorax is improving in fact almost resolved overnight with no specific intervention. It is probably worth check another x-ray tomorrow the way I typically manage the patients with pneumothoraces when I am not going to place a chest tube is to put him on 100% oxygen by face mask. Obviously, this is not feasible to maintain well either eating, but the issue here is to purged the nitrogen from the bloodstream to establish nitrogen and oxygen diffusion gradients to hasten reabsorption of the pneumothorax base. This patient's pneumothorax base is shrinking even without that and I think that he will be fine without any specific intervention. We will be available if needed. We will go ahead and take the liberty of ordering another chest x-ray for tomorrow. Job ID: [id number]
[2019-04-01] MEDS: Warfarin Sodium 7.5 MG TAB PO SCH (18:15)
[2019-04-02 04:23] VITALS: BP 108/62; TEMP 98.4
[2019-04-02 05:28] LABS: #Basophils 0.1 thou/uL (0.0-0.2); #Eosinphils 0.2 thou/uL (0.0-0.7); #Lymphocytes 1.9 thou/uL (1.20-3.40); #Monocytes 1.6 thou/uL (0.11-0.59); #Neutrophils 8.7 thou/uL (1.40-6.50); %Basophils 0.7 % (0.0-1.0); %Eosinophils 1.8 % (0.0-10.0); %Lymphocytes 15.5 % (21.0-51.0); %Monocytes 12.4 % (0.0-10.0); %Neutrophils 69.6 % (42.0-75.0); Hemoglobin 13.8 g/dL (14.0-18.0); Mean Corpuscular HGB CONC 31.1 g/dL (32.0-36.0); Mean Corpuscular Hemoglobin 28.4 pg (27.0-31.0); Mean Corpuscular Volume 91.4 fL (78.0-98.0); Mean Platelet Volume 8.5 fL (7.4-10.4); Platelet Count 258 thou/uL (130-400); RBC Distribution Width 16.4 % (11.5-14.5); Red Blood Cell (RBC) Count 4.86 mill/uL (4.70-6.10); White Blood Cell (WBC) Count 12.5 thou/uL (4.8-10.8)
[2019-04-02 05:41] LABS: INR-International Normal Ratio 1.9; PTT 43.4 SEC (22.9-36.1); Prothrombin Time 21.7 SEC (12.0-14.7)
[2019-04-02 05:51] LABS: ALT (SGPT) 95 U/L (8-55); AST (SGOT) 70 U/L (5-34); Albumin 2.3 g/dL (3.5-5.0); Alkaline Phosphatase 184 U/L (40-150); Anion Gap 11 mmol/L (10-20); BUN (Urea Nitrogen) 23 mg/dL (8.9-20.6); Bilirubin, Total 2.9 mg/dL (0.2-1.2); Calc. Creatinine Clearance 134 mL/min (70-130); Calcium 8.2 mg/dL (7.8-10.44); Carbon Dioxide 29 mmol/L (22-29); Chloride 95 mmol/L (98-107); Estimated GFR-MDRD Greater than 90; Globulin 3.1 g/dL (2.4-3.5); Glucose 89 mg/dL (70-105); Potassium 3.7 mmol/L (3.5-5.1); Protein, Total 5.4 g/dL (6.0-8.3); Sodium 131 mmol/L (136-145)
--- NOTE | 2019-04-02 07:57 | PDOC.FM ---
- Subjective Subjective: NAEO. Pt desires to leave AMA. Off dobutamine drip. No complaints this morning. - Objective MAR Reviewed: Yes Vital Signs & Weight: Vital Signs (12 hours) Temp Pulse Resp BP BP Pulse Ox 04/02/19 04:22 98.4 F 92 18 108/62 98 04/01/19 23:57 103 H 112/55 L 04/01/19 20:04 105 H 123/58 L 04/01/19 20:02 99.3 F 105 H 16 123/58 L 96 Weight Admit Weight 108.097 kg Weight 92.85 kg Most Recent Monitor Data Heart Rate from ECG 98 NIBP 107/67 NIBP BP-Mean 80 Respiration from ECG 21 I&O: 04/01/19 04/02/19 04/03/19 06:59 06:59 06:59 Intake Total 1200 880 Output Total 3900 2395 Balance -6593 -2891 Result Diagrams: 04/02/19 04:40 04/02/19 04:40 Phys Exam - Physical Examination Constitutional: NAD HEENT: PERRLA, moist MMs icteric sclera Neck: no nodes, full ROM Respiratory: no wheezing, clear to auscultation bilateral Cardiovascular: RRR, no significant murmur Gastrointestinal: soft, non-tender 2+ edema in left lower extremity Neurological: non-focal, moves all 4 limbs Psychiatric: A&O x 3 Deviation from normal: flat affect Skin: cap refill <2 seconds Dx/Plan (1) Acute heart failure Code(s): I50.9 - HEART FAILURE, UNSPECIFIED Status: Acute (2) Acute liver failure Status: Acute (3) Acute renal injury Code(s): N17.9 - ACUTE KIDNEY FAILURE, UNSPECIFIED Status: Acute (4) Demand ischemia Code(s): I24.8 - OTHER FORMS OF ACUTE ISCHEMIC HEART DISEASE Status: Acute (5) Hyperbilirubinemia Code(s): E80.6 - OTHER DISORDERS OF BILIRUBIN METABOLISM Status: Acute (6) Increased ammonia level Code(s): R79.89 - OTHER SPECIFIED ABNORMAL FINDINGS OF BLOOD CHEMISTRY Status : Acute (7) Lactic acidosis Code(s): E87.2 - ACIDOSIS Status: Acute (8) Pneumonia Code(s): J18.9 - PNEUMONIA, UNSPECIFIED ORGANISM Status: Acute (9) Pulmonary emboli Code(s): I26.99 - OTHER PULMONARY EMBOLISM WITHOUT ACUTE COR PULMONALE Status : Acute - Plan Plan: 29 year old male with no significant PMH presents with a one month history of progressive weakness, shortness of breath, and lower extremity swelling 1. Acute on chronic HFrEF (20-25%) - Cardiac cath without evidence of stenosis - Continue diuresis; metalazone helping (Output of 4 L yesterday) - Patient off dobutamine drip; BP low to 95/50 - Cards consulted; appreciate recs - On digoxin, hydralazine, and imdur per cards - Carvedilol, valsartan started (renal fx improved) - Lifevest discussed with patient on several occasions; he likely will not be able to afford 2. Bilateral pulmonary emboli - Transitioned to warfarin as patient cannot afford NOAC and is uninsured; as liver failure 2/2 hepatic congestion d/t overload, anticipate continued improvement in liver function - INR 1.9 this AM, will repeat tmrw, if still subtherapeutic, can inc. to 10mg on warfarin 3. Acute liver failure - Liver enzymes downtrending - Likely improving because hepatic congestion is improving with diuresis 4. Hyperbilirubinemia - Likely 2/2 hepatic congestion from above 5. Acute kidney injury, resolved - Improving with diuresis - Cr has stabilized; gfr >90 6. Demand ischemia - Troponin elevated, but stable - Likely 2/2 demand from hypoperfusion 2/2 CHF exacerbation and third spacing - Cards consulted; appreciate recs 7. Lactic acidosis, resolved - Likely 2/2 hypoperfusion 8. Hemoptysis - TB with indeterminate A. - Possibly related to hemorrhage from PE's 9. Hyponatremia - Na 126 --> 121 --> 122 --> 125 --> 127 --> 131 - Continue to trend - Likely 2/2 fluid overload - Fluid restriction 10. Leukocytosis - Initial concern for severe sepsis based on tachycardia and elevated WBC - Patient started on vanc, zosyn, levoquin in Ed - Blood cx obtained after initiation of abx; blood cultures negative - UA negative - Procalcitonin 2 --> downtrended - Levoquin d/c'd after 10 day course. - No s/s of infection 11. Coagulopathy - Picture consistent with DIC - Likely 2/2 liver failure - Heme consulted; appreciate recs - Continue warfarin. INR at 1.9 this AM. Will resume th. lovenox, inc warfarin 12. Elevated ammonia level - 2/2 liver failure - Ammonia wnl now 13. Hypokalemia, resolved 14. Contraction alkalosis - d/c'd sodium bicarb 15. Pneumothorax vs. hemothorax - Called by radiology regarding 15-20% pneumothorax on right, repeat was stable - Pulm concerned that this is 2/2 blood from PE's and patient could decompensate - CV Surg has been notified, repeat CXR this AM Dispo: Continue diuresis. Patient off dobutamine drip, maintaining pressures. Monitor respiratory status with new pneumothorax, pending repeat CXR. Addendum - Attending - Attending Attestation Date/Time: 04/02/19 3296 I personally evaluated the patient and discussed the management with Dr. Gaspar. I agree with the History, Examination, Assessment and Plan documented above with any addition or exceptions noted below. The patient is sitting in a chair fully dressed and states he is going to leave AMA. The patient states he has been here for 2 weeks and is tired of this place. I discussed the risks of him leaving which includes and he states he doesn't care. I explained that we couldn't get his life vest until Thursday. The patient also refused his repeat CXR this morning to monitor the pneumothorax. INR is subtherapeutic this morning. We spoke with the pt multiple times but he is leaving ama when his mom arrives to pick him up.
--- NOTE | 2019-04-02 19:15 | PDOC.EVN ---
Event Note - Event Note Event Note: Patient desires to leave AMA. Discussed with patient risk of getting sick, heart failing and even . Patient wants to leave because he can't sleep well here in hospital. Asked him to stay to at least repeat the CXR. Patient refused. He did agree to try and establish care with PCP in [place]. Indicated understanding of health risk and conseuqences of leaving.
== END 2019-04-02 08:36 | disposition left against medical advice (07) | DRG 871 ==
LOC: ERS 19:49 → IMCU/EMU 23:22 → 2NO 03-25 18:26
PROVIDERS: ADMIT Family Medicine; ATTEND Family Medicine
PROC: 4A023N7 Measurement of Cardiac Sampling and Pressure, Left Heart, Percutaneous Approach (ICD-10-PCS; principal; 2019-03-29)
PROC: B2111ZZ Fluoroscopy of Multiple Coronary Arteries using Low Osmolar Contrast (ICD-10-PCS; 2019-03-29)
PROC: B2151ZZ Fluoroscopy of Left Heart using Low Osmolar Contrast (ICD-10-PCS; 2019-03-29)
DX: A41.9 Sepsis, unspecified organism (principal); J18.9 Pneumonia, unspecified organism; D65 Disseminated intravascular coagulation [defibrination syndrome]; K72.00 Acute and subacute hepatic failure without coma; I26.99 Other pulmonary embolism without acute cor pulmonale; I50.23 Acute on chronic systolic (congestive) heart failure; N17.9 Acute kidney failure, unspecified; E87.1 Hypo-osmolality and hyponatremia; I24.8 Other forms of acute ischemic heart disease; R04.2 Hemoptysis; I42.0 Dilated cardiomyopathy; I24.0 Acute coronary thrombosis not resulting in myocardial infarction; J93.9 Pneumothorax, unspecified; E87.3 Alkalosis; Z53.21 Procedure and treatment not carried out due to patient leaving prior to being seen by health care provider; K76.1 Chronic passive congestion of liver; R65.20 Severe sepsis without septic shock; Z72.0 Tobacco use
CPT/HCPCS: 36415; 71045; 71275; 74177; 76700; 76705; 80053; 80074; 80306; 80307; 80500; 81003; 81240; 81241; 82140; 82248; 82390; 82550; 82553; 82570; 83090; 83516; 83605; 83615; 83690; 83735; 83880; 83930; 83935; 84100; 84145; 84300; 84443; 84484; 84597; 85025; 85049; 85240; 85300; 85303; 85305; 85307; 85362; 85379; 85384; 85598; 85610; 85611; 85652; 85730; 85732; 86038; 86140; 86147; 86225; 86480; 86618; 86622; 87040; 87086; 87389; 87497; 87529; 87798; 87899; 93005; 93306; 93458; 93798; 93970; 94760; 96361; 96374; 96375; C1769; J1160; J1250; J1644; J1650; J1940; J1956; J2405; J2543; J3370; J3475; J3490; J7050; J7070; P9047; Q9966; Q9967

== ENCOUNTER 2022-04-07 14:16 | Outpatient (CLI) | payer MEDICAID, MEDICARE | END 2022-04-07 14:17 | disposition home or self-care (01) | LOC: RAD-FRANK 14:16 | PROVIDERS: ATTEND Nurse Practitioner Family | DX: R60.1 Generalized edema (principal); I51.7 Cardiomegaly; J81.1 Chronic pulmonary edema | CPT/HCPCS: 71046 ==